=== PATIENT | female | born 1945 | race Caucasian/White ===

== ENCOUNTER 2021-08-30 09:06 | Inpatient (IN) | payer MEDICARE ==
[2021-08-30] MEDS ORDERED: SODIUM CHLORIDE 0.9% 1,000 ML IV STA ×2 (10:35)
--- NOTE | 2021-08-30 10:38 | ED ---
Nausea/Vomiting/Diarrhea HPI - General Chief complaint: Nausea/Vomiting/Diarrhea Stated complaint: C-Diff Time Seen by Provider: 08/30/21 09:39 Source: patient Mode of arrival: wheelchair Limitations: no limitations - History of Present Illness Initial comments: 76-year-old female history of C. diff diagnosed several weeks ago she has been on oral medications since and just finished that who presents with complaints of persistent diarrhea nausea 21 pound weight loss decreased oral intake lightheadedness dizziness generalized weakness some intermittent left abdominal pain. No dysuria no hematuria she just feels dehydrated weak she states no palpitations reported no chest pain MD complaint: nausea, vomiting, diarrhea, abdominal pain - Related Data Home Medications Medication Instructions Recorded Confirmed Apixaban [Eliquis] 5 mg PO BID 08/30/21 08/30/21 Diphenox-Atrop 2.5-0.025 mg 1 tab PO QID 08/30/21 08/30/21 [Lomotil] Furosemide [Lasix] 40 mg PO BID 08/30/21 08/30/21 HYDROcodone/APAP 10-325MG [[place] 1 tab PO Q8H PRN 08/30/21 08/30/21 10-325] Vancomycin 125 mg PO Q8H 08/30/21 08/30/21 allopurinoL [Zyloprim] 100 mg PO DAILY 08/30/21 08/30/21 carvediloL [Coreg] 6.25 mg PO BID 08/30/21 08/30/21 ondansetron HCL [Zofran] 8 mg PO Q8H PRN 08/30/21 08/30/21 Allergies Allergy/AdvReac Type Severity Reaction Status Date / Time clindamycin Allergy Unknown Verified 08/30/21 12:10 latex Allergy Unknown Verified 08/30/21 12:10 Penicillins Allergy Rash/Hives Verified 08/30/21 12:10 bhavya Allergy Unknown Verified 08/30/21 12:10 Sulfa (Sulfonamide Allergy Unknown Verified 08/30/21 12:10 Antibiotics) Review of Systems ROS Statement: Those systems with pertinent positive or pertinent negative responses have been documented in the HPI. ROS Other: All systems not noted in ROS Statement are negative. Past Medical History Past Medical History: Atrial Fibrillation, Hypertension Additional Past Medical History / Comment(s): heart problems (leaking valves), c-diff, gout History of Any Multi-Drug Resistant Organisms: None Reported Past Surgical History: Hysterectomy, Orthopedic Surgery Additional Past Surgical History / Comment(s): right shoulder, BL knee, right ankle, right great toe, bowel surgery, jaw surgery, right ear Past Psychological History: No Psychological Hx Reported Smoking Status: Former smoker Past Alcohol Use History: None Reported Past Drug Use History: None Reported General Exam - General Exam Comments Initial Comments: This is a well-developed well-nourished awake alert oriented 3 female Limitations: no limitations General appearance: alert, in no apparent distress Head exam: Present: atraumatic, normocephalic, normal inspection Eye exam: Present: normal appearance, PERRL, EOMI. Absent: scleral icterus, conjunctival injection, periorbital swelling ENT exam: Present: mucous membranes dry Neck exam: Present: normal inspection, full ROM, other (No stridor JVD or bruits). Absent: tenderness, meningismus, lymphadenopathy Respiratory exam: Present: normal lung sounds bilaterally. Absent: respiratory distress, wheezes, rales, rhonchi, stridor Cardiovascular Exam: Present: normal rhythm, bradycardia, normal heart sounds. Absent: systolic murmur, diastolic murmur, rubs, gallop, clicks GI/Abdominal exam: Present: soft, normal bowel sounds. Absent: distended, tenderness, guarding, rebound, rigid Extremities exam: Present: normal inspection, full ROM, normal capillary refill. Absent: tenderness, pedal edema, joint swelling, calf tenderness Back exam: Present: normal inspection Neurological exam: Present: alert, oriented X3, CN II-XII intact Psychiatric exam: Present: normal affect, normal mood Skin exam: Present: warm, dry, intact, normal color. Absent: rash Course Vital Signs 08/30/21 08/30/21 08/30/21 09:13 12:00 12:40 Temperature 98 F Pulse Rate 54 L 84 74 Respiratory 18 20 15 Rate Blood Pressure 119/71 143/82 143/82 O2 Sat by Pulse 95 Oximetry 08/30/21 08/30/21 08/30/21 12:50 13:00 13:10 Temperature Pulse Rate 71 81 77 Respiratory 10 L 12 10 L Rate Blood Pressure 143/82 143/82 117/58 O2 Sat by Pulse 73 L 83 L 82 L Oximetry 08/30/21 08/30/21 08/30/21 13:20 13:30 13:40 Temperature Pulse Rate 88 Respiratory 14 Rate Blood Pressure 117/58 117/58 117/58 O2 Sat by Pulse 81 L Oximetry 08/30/21 14:00 Temperature Pulse Rate Respiratory Rate Blood Pressure 117/58 O2 Sat by Pulse Oximetry Medical Decision Making - Medical Decision Making I did discuss [employer] the patient family members patient demonstrates evidence of gastroenteritis dehydration and failure to thrive acute on chronic kidney disease. I did discuss the case also with Dr. Montgomery who is agreed to see the patient consult also with Dr. eduardo who is agreed to accept the patient for the medical service. - Lab Data Result diagrams: 08/30/21 10:56 08/30/21 10:56 Lab Results 08/30/21 08/30/21 08/30/21 Range/Units 10:56 10:56 10:56 WBC 9.5 (3.8-10.6) k/uL RBC 4.17 (3.80-5.40) m/uL Hgb 12.0 (11.4-16.0) gm/dL Hct 39.9 (34.0-46.0) % MCV 95.6 (80.0-100.0) fL MCH 28.8 (25.0-35.0) pg MCHC 30.1 L (31.0-37.0) g/dL RDW 15.4 (11.5-15.5) % Plt Count 369 (150-450) k/uL MPV 8.5 Neutrophils % 67 % Lymphocytes % 24 % Monocytes % 5 % Eosinophils % 2 % Basophils % 1 % Neutrophils # 6.4 (1.3-7.7) k/uL Lymphocytes # 2.3 (1.0-4.8) k/uL Monocytes # 0.4 (0-1.0) k/uL Eosinophils # 0.2 (0-0.7) k/uL Basophils # 0.1 (0-0.2) k/uL Hypochromasia Moderate Sodium 137 (137-145) mmol/L Potassium 3.5 (3.5-5.1) mmol/L Chloride 99 (98-107) mmol/L Carbon Dioxide 28 (22-30) mmol/L Anion Gap 10 mmol/L BUN 23 H (7-17) mg/dL Creatinine 2.62 H (0.52-1.04) mg/dL Est GFR (CKD-EPI)AfAm 20 (>60 ml/min/1.73 sqM) Est GFR (CKD-EPI)NonAf 17 (>60 ml/min/1.73 sqM) Glucose 114 H (74-99) mg/dL Plasma Lactic Acid Shahab 1.6 (0.7-2.0) mmol/L Calcium 8.1 L (8.4-10.2) mg/dL Magnesium 1.6 (1.6-2.3) mg/dL Total Bilirubin 0.9 (0.2-1.3) mg/dL AST 32 (14-36) U/L ALT 8 (4-34) U/L Alkaline Phosphatase 120 (38-126) U/L Creatine Kinase 81 (30-135) U/L Troponin I (0.000-0.034) ng/mL Total Protein 6.0 L (6.3-8.2) g/dL Albumin 3.1 L (3.5-5.0) g/dL Lipase 58 (23-300) U/L Urine Color Urine Appearance (Clear) Urine pH (5.0-8.0) Ur Specific [place] (1.001-1.035) Urine Protein (Negative) Urine Glucose (UA) (Negative) Urine Ketones (Negative) Urine Blood (Negative) Urine Nitrite (Negative) Urine Bilirubin (Negative) Urine Urobilinogen (<2.0) mg/dL Ur Leukocyte Esterase (Negative) Urine RBC (0-5) /hpf Urine WBC (0-5) /hpf Ur Squamous Epith Cells (0-4) /hpf Urine Bacteria (None) /hpf Hyaline Casts (0-2) /lpf Urine Mucus (None) /hpf 08/30/21 08/30/21 Range/Units 10:56 13:20 WBC (3.8-10.6) k/uL RBC (3.80-5.40) m/uL Hgb (11.4-16.0) gm/dL Hct (34.0-46.0) % MCV (80.0-100.0) fL MCH (25.0-35.0) pg MCHC (31.0-37.0) g/dL RDW (11.5-15.5) % Plt Count (150-450) k/uL MPV Neutrophils % % Lymphocytes % % Monocytes % % Eosinophils % % Basophils % % Neutrophils # (1.3-7.7) k/uL Lymphocytes # (1.0-4.8) k/uL Monocytes # (0-1.0) k/uL Eosinophils # (0-0.7) k/uL Basophils # (0-0.2) k/uL Hypochromasia Sodium (137-145) mmol/L Potassium (3.5-5.1) mmol/L Chloride (98-107) mmol/L Carbon Dioxide (22-30) mmol/L Anion Gap mmol/L BUN (7-17) mg/dL Creatinine (0.52-1.04) mg/dL Est GFR (CKD-EPI)AfAm (>60 ml/min/1.73 sqM) Est GFR (CKD-EPI)NonAf (>60 ml/min/1.73 sqM) Glucose (74-99) mg/dL Plasma Lactic Acid Shahab (0.7-2.0) mmol/L Calcium (8.4-10.2) mg/dL Magnesium (1.6-2.3) mg/dL Total Bilirubin (0.2-1.3) mg/dL AST (14-36) U/L ALT (4-34) U/L Alkaline Phosphatase (38-126) U/L Creatine Kinase (30-135) U/L Troponin I 0.025 (0.000-0.034) ng/mL Total Protein (6.3-8.2) g/dL Albumin (3.5-5.0) g/dL Lipase (23-300) U/L Urine Color Yellow Urine Appearance Cloudy H (Clear) Urine pH 5.0 (5.0-8.0) Ur Specific [place] 1.008 (1.001-1.035) Urine Protein Negative (Negative) Urine Glucose (UA) Negative (Negative) Urine Ketones Negative (Negative) Urine Blood Negative (Negative) Urine Nitrite Negative (Negative) Urine Bilirubin Negative (Negative) Urine Urobilinogen <2.0 (<2.0) mg/dL Ur Leukocyte Esterase Large H (Negative) Urine RBC 1 (0-5) /hpf Urine WBC 18 H (0-5) /hpf Ur Squamous Epith Cells 6 H (0-4) /hpf Urine Bacteria Occasional H (None) /hpf Hyaline Casts 3 H (0-2) /lpf Urine Mucus Rare H (None) /hpf - EKG Data -: EKG Interpreted by Me EKG Comments: Evidence of A. fib with aberrant conduction rate 78 QRS 108 daily since QTC 422/456 low-voltage nonspecific ST configuration PVCs noted - Radiology Data Radiology results: report reviewed (Imaging review as well as report no acute findings), image reviewed Disposition Clinical Impression: Gastroenteritis, Dehydration, History of Clostridioides difficile colitis, Failure to thrive in adult Disposition: ADMITTED IP TO THIS HOSP Condition: Fair Referrals: Brock Holguin MD [Primary Care Provider] - 1-2 days Decision Date: 08/30/21 Decision Time: 14:00
[2021-08-30 11:26] LABS: Basophils # (A) 0.1 k/uL (0-0.2); Basophils % (A) 1 %; Eosinophils # (A) 0.2 k/uL (0-0.7); Eosinophils % (A) 2 %; HCT 39.9 % (34.0-46.0); Hypochromasia Moderate; Lymphocytes # (A) 2.3 k/uL (1.0-4.8); Lymphocytes % (A) 24 %; MCH 28.8 pg (25.0-35.0); MCHC 30.1 g/dL (31.0-37.0); MCV 95.6 fL (80.0-100.0); Mean Platelet Volume 8.5; Monocytes # (A) 0.4 k/uL (0-1.0); Monocytes % (A) 5 %; Neutrophils # (A) 6.4 k/uL (1.3-7.7); Neutrophils % (A) 67 %; Platelet Count 369 k/uL (150-450); RBC 4.17 m/uL (3.80-5.40); RDW 15.4 % (11.5-15.5); WBC 9.5 k/uL (3.8-10.6)
[2021-08-30 11:37] LABS: Albumin 3.1 g/dL (3.5-5.0); Calcium 8.1 mg/dL (8.4-10.2); Total Bilirubin 0.9 mg/dL (0.2-1.3)
[2021-08-30 11:41] LABS: Magnesium 1.6 mg/dL (1.6-2.3); Potassium 3.5 mmol/L (3.5-5.1)
--- NOTE | 2021-08-30 11:44 | XR ---
EXAMINATION TYPE: XR KUB DATE OF EXAM: 08/30/2021 COMPARISON: None HISTORY: Diarrhea TECHNIQUE: Upright abdomen FINDINGS: No free air is evident. No suspicious air-fluid levels or differential air-fluid levels are present. Psoas margins are normal. Organomegaly is not evident. No mass effect is evident. Degenerat juan josé joint changes are bilateral hips. IMPRESSION: 1. Unremarkable abdomen.
--- NOTE | 2021-08-30 11:45 | XR ---
EXAMINATION TYPE: XR chest 2V DATE OF EXAM: 08/30/2021 COMPARISON: None INDICATION: Diarrhea lightheaded TECHNIQUE: Frontal and lateral views of the chest are obtained. FINDINGS: The heart size is upper limits of normal.. The pulmonary vasculature is normal. Minimal plate atelectasis may be in the left mid and lower lung field lungs otherwise appear clear.. IMPRESSION: 1. Suggestion of minimal plate atelectasis left lung base
[2021-08-30 13:42] LABS: Appearance,Urine Cloudy (Clear); Bacteria,Urine Occasional /hpf; Bilirubin,Urine Negative (Negative); Blood,Urine Negative (Negative); Color,Urine Yellow; Glucose,Urine (UA) Negative (Negative); Hyaline Casts,Urine 3 /lpf (0-2); Ketones,Urine Negative (Negative); Leukocyte Esterase,Urine Large (Negative); Mucus,Urine Rare /hpf; Nitrite,Urine Negative (Negative); Protein,Urine Negative (Negative); RBC,Urine 1 /hpf (0-5); Specific Gravity,Urine 1.008 (1.001-1.035); Squamous Epithelial Cell,Urine 6 /hpf (0-4); Urobilinogen,Urine <2.0 mg/dL (<2.0); WBC,Urine 18 /hpf (0-5)
[2021-08-30] MEDS ORDERED: ACETAMINOPHEN TAB 325 MG TAB PO PRN (14:28)
[2021-08-30] MEDS ORDERED: NALOXONE 0.4 MG/ML 1 ML VIAL IV PRN (14:28)
[2021-08-30] MEDS ORDERED: IOPAMIDOL CONTRAST (ORAL USE) VIAL PO PRN (16:21)
[2021-08-30] MEDS: FUROSEMIDE 40 MG TAB PO SCH (17:15)
[2021-08-30] MEDS: DIPHENOX-ATROP 2.5-0.025 MG 1 EACH TAB PO SCH ×2 (17:15→23:03)
[2021-08-30] MEDS: ONDANSETRON 4 MG/2 ML VIAL IVP PRN (17:46)
[2021-08-30] MEDS ORDERED: IPRATROPIUM-ALBUTEROL 3 ML NEB INHALATION PRN (17:52)
[2021-08-30] MEDS: SODIUM CHLORIDE 0.9% 1,000 ML IV SCH (18:50)
[2021-08-30] MEDS: IPRATROPIUM-ALBUTEROL 3 ML NEB INHALATION SCH (19:42)
[2021-08-30] MEDS: APIXABAN 5 MG TAB PO SCH (20:15)
[2021-08-30] MEDS: carvediloL 6.25 MG TAB PO SCH (20:15)
--- NOTE | 2021-08-30 20:28 | HP ---
HISTORY AND PHYSICAL DATE OF SERVICE: 08/30/2021 CHIEF COMPLAINTS: Nausea, vomiting, diarrhea and failure of outpatient treatment with C difficile colitis. HISTORY OF PRESENT ILLNESS: This 76-year-old woman with a past medical history of multiple medical problems, including atrial fibrillation, hypertension and liver disease, was apparently multiple times during the recent months. The most recent admission was for C difficile colitis. The patient was given apparently a 10-day course of vancomycin. The patient was still having diarrhea and was also vomiting, unable to keep anything down. Patient came to [facility] and was admitted for evaluation and treatment. The creatinine is elevated at 2.62, indicating acute renal failure. Urine is also abnormal. There is no history of any fever, rigor or chills at this time. PAST MEDICAL HISTORY: Past medical history includes atrial fibrillation, hypertension. HOME MEDICATIONS: Reviewed. They include Zofran. Doses and the rest of the medications are noted. ALLERGIES: REVIEWED. THEY INCLUDE CLINDAMYCIN. FAMILY HISTORY: No history of heart disease or strokes in the family. SOCIAL HISTORY: Previous history of smoking. REVIEW OF SYSTEMS: Fourteen-point review of systems negative except as mentioned earlier. PHYSICAL EXAMINATION: Pulse is 88, blood pressure ntd_, respiration 14. Pulse ox 81%. HEENT: Conjunctivae normal. NECK: No jugular venous distention. CARDIOVASCULAR: S1, S2 muffled. RESPIRATION: Breath sounds diminished at the bases. A few scattered rhonchi. ABDOMEN: Soft. Obese. Mild diffuse discomfort. No guarding. No rigidity. No mass palpable. LEGS: No edema. No swelling. NERVOUS SYSTEM: No focal deficit. LABS: Reviewed. Creatinine 2.62. ASSESSMENT: 1. Nausea, vomiting, diarrhea, rule out Clostridium difficile colitis and failure of outpatient treatment. 2. Acute renal failure, prerenal. 3. Hypoxia for evaluation. 4. Rule out acute urinary tract infection. 5. Atrial fibrillation. 6. Multiple medical issues. RECOMMENDATIONS AND DISCUSSION: In this 76-year-old woman who presented with multiple complex medical issues, we will monitor the patient closely. Repeat C difficile. Obtain cultures of urine and blood. Gentle hydration. I would also recommend a D-dimer, and if it is positive V/Q scan. The chest x-ray was reviewed personally by me and showed no acute abnormality. Prognosis is guarded because of multiple complex medical issues. See orders for further details. Will consult Infectious Disease as well. Further recommendations to follow. MMODL / IJN: [id number] / [place]
--- NOTE | 2021-08-30 21:22 | CT ---
EXAMINATION TYPE: CT abdomen pelvis wo con DATE OF EXAM: 08/30/2021 COMPARISON: None INDICATION: abdominal pain DLP: 1132.4 mGycm, Automated exposure control for dose reduction was used. CONTRAST: 0 mL of Isovue 300. Study performed without Oral Contrast TECHNIQUE: Axial images were obtained from above the diaphragm to the pubic rami in the axial plane a t 5 mm thick sections. Reconstructed images are reviewed on the computer in the coronal plane. FINDINGS: Limited CT sections are obtained the lung bases. The lung bases are clear. Coronary artery calcific ation is present. CT ABDOMEN: Liver: There is mild fatty infiltration to the liver. No discrete masses are evident. Spleen: Normal Pancreas: Atrophic Adrenal glands: The adrenal glands are normal. Gallbladder: Not identified. Correlate with surgical history Kidneys: No masses are evident. No hydronephrosis is present. No cysts are present. Kidneys appear atrophic. Aorta: Vascular calcification is within the aorta. Inferior vena cava: Normal. CT PELVIS: Loops of bowel within the abdomen and pelvis are normal. Studies without oral contrast limiting b owel evaluation. Surgical changes within the distal colon. No obvious stenosis is evident. No suspici ous wall thickening or pericolonic inflammatory changes evident to suggest acute colitis. Appendix: Not identified Urinary bladder: Decompressed cannot be evaluated Genitourinary structures: Uterus and ovaries are not identified. No free fluid within the pelvis. Osseous structures: No suspicious lytic or sclerotic lesions. IMPRESSIONS: 1. No suspicious changes without acute colitis. 2. Mild fatty alteration of the liver.
[2021-08-30] MEDS: HYDROcodone/APAP 10-325MG 1 EACH TAB PO PRN (23:34)
[2021-08-31] MEDS: IPRATROPIUM-ALBUTEROL 3 ML NEB INHALATION SCH ×3 (08:06→19:50)
[2021-08-31 09:05] LABS: Basophils # (A) 0.05 X 10*3/uL (0.00-0.10); Basophils % (A) 0.7 %; Eosinophils # (A) 0.22 X 10*3/uL (0.04-0.35); Eosinophils % (A) 3.1 %; HCT 32.5 % (37.2-46.3); HGB 9.7 g/dL (12.0-15.0); Immature Grans, Automated 0.3 %; Lymphocytes # (A) 2.25 X 10*3/uL (0.90-5.00); Lymphocytes % (A) 31.3 %; MCH 27.7 pg (27.0-32.0); MCHC 29.8 g/dL (32.0-37.0); MCV 92.9 fL (80.0-97.0); Mean Platelet Volume 11.6 fL (9.5-12.2); Monocytes # (A) 0.59 X 10*3/uL (0.20-1.00); Monocytes % (A) 8.2 %; NRBC Per 100 WBC 0 /100 WBCS (0.0-0.0); Neutrophils # (A) 4.05 X 10*3/uL (1.80-7.70); Neutrophils % (A) 56.4 %; Platelet Count 288 X 10*3/uL (140-440); RDW 15.9 % (11.5-14.5); WBC 7.18 X 10*3/uL (4.50-10.00)
[2021-08-31 09:13] LABS: Anion Gap 13.9 mmol/L (10.00-18.00); BUN/Creat Ratio 6.73 Ratio (12.00-20.00); Blood Urea Nitrogen 17.5 mg/dL (9.0-27.0); Calcium 7.4 mg/dL (8.7-10.3); Carbon Dioxide 24.1 mmol/L (20.0-27.5); Non-African American GFR(CKD) 17.2 (60.0-200.0); Potassium 2.9 mmol/L (3.5-5.5)
[2021-08-31] MEDS: SODIUM CHLORIDE 0.9% 1,000 ML IV SCH (09:31)
[2021-08-31] MEDS: carvediloL 6.25 MG TAB PO SCH ×2 (09:32→19:30)
[2021-08-31] MEDS: PANTOPRAZOLE 40 MG/10 ML VIAL IV SCH (09:32)
[2021-08-31] MEDS: allopurinoL 100 MG TAB PO SCH (09:32)
[2021-08-31] MEDS: FUROSEMIDE 40 MG TAB PO SCH ×2 (09:32→16:20)
[2021-08-31] MEDS: DIPHENOX-ATROP 2.5-0.025 MG 1 EACH TAB PO SCH ×2 (09:32→13:35)
[2021-08-31] MEDS: APIXABAN 5 MG TAB PO SCH ×2 (09:32→19:30)
[2021-08-31] MEDS: HYDROcodone/APAP 10-325MG 1 EACH TAB PO PRN ×2 (12:03→20:40)
--- NOTE | 2021-08-31 14:20 | P.GSCN ---
History of Present Illness Consult date: 08/31/21 History of present illness: CHIEF COMPLAINT: Nausea and vomiting HISTORY OF PRESENT ILLNESS: This is a 76-year-old female with recent C. diff colitis. She reports having had diarrhea for about 3 weeks. She was found to have evidence of C. diff colitis. She completed one week of treatment for C. diff colitis. She reports that the medication was making her feel nauseated. She also was having vomiting. She reports that her last bowel movement was 2 days ago and it was loose. She denies any abdominal pain. However she does report poor oral intake. She's lost about 10 pounds within the last week. Her CAT scan of the abdomen results without contrast demonstrates no suspicious changes without acute colitis. Mild fatty alteration of the liver. Patient's c urrently lying in bed and tolerating clear liquid diet. No abdominal pain. Currently no nausea. She is on Eliquis for her atrial fibrillation. Past surgical history does include bowel resection about 10 years ago for possible diverticulitis, prior lysis of adhesions for bowel obstruction and a childhood surgical history of bowel resection and hysterectomy. Her last colonoscopy was about 10 years ago. She denies any fever chills or sweats. Patient currently denies any difficulty swallowing. But family member at bedside had reported some differential patient had had some difficulty with solid foods. PAST MEDICAL HISTORY: See list. PAST SURGICAL HISTORY: See list. MEDICATIONS: See list. ALLERGIES: See list. SOCIAL HISTORY: No illicit drug use. REVIEW OF SYSTEMS: CONSTITUTIONAL: Denies fever or chills. HEENT: Denies blurred vision, vision changes, or eye pain. Denies hemoptysis ENDOCRINE: Denies heat or cold intolerance. CARDIOVASCULAR: Denies chest pain or pressure. RESPIRATORY: No shortness of breath. GASTROINTESTINAL: Denies abdominal pain. Denies nausea or vomiting. NEURO: Denies history of seizures. PSYCH: No depression or suicidal ideation HEMATOLOGIC: Denies bleeding disorders. LYMPHATIC: The patient denies any lumps and bumps around the neck. GENITOURINARY: Denies any blood in urine or increased urinary frequency. MUSCULOSKELETAL: Denies myalgias. Denies joint swelling. Denies decreased range of motion beyond patients baseline. SKIN: Denies pruitis. Denies rash. PHYSICAL EXAM: VITAL SIGNS: Reviewed GENERAL: Well-developed in no acute distress. HEENT: No sclera icterus. Extraocular movements grossly intact. Moist buccal mucosa. Head is atraumatic, normocephalic. Hears conversational speech. No nasal drainage. NECK: Supple without lymphadenopathy. CHEST: Non-labored respirations and equal bilateral excursions. CARDIOVASCULAR: Palpable 2+ radial pulses. ABDOMEN: Soft. Nondistended. Nontender MUSCULOSKELETAL: No clubbing or cyanosis. NEUROLOGIC: No focal or lateralizing signs. Cranial nerves II through XII grossly intact. PSYCH: Appropriate affect. Alert and oriented to person, place and time. SKIN: Well perfused. Good skin turgor. LABORATORY DATA: WBC 7.18 Hgb 12 down to 9.7 platelets 288 Sodium 144 potassium 2.9 creatinine 2.6 IMAGING: Computed tomography scan findings as stated above ASSESSMENT: 1. Nausea and vomiting 2. Recent C. diff colitis and did not complete full treatment due to nausea and vomiting 3. Acute renal failure 4. Possible difficulty with swallowing solid food 5. History of atrial fibrillation on Eliquis for anticoagulation PLAN: -Further recommendations forthcoming per surgeon -Repeat stool for C. diff pending -Continue supportive care -Continue clear liquid diet -Continue IV fluids Thank you for this consultation Physician Machine Feed Operator note has been reviewed by physician. Signing provider agrees with the documented findings, assessment, and plan of care. Past Medical History Past Medical History: Atrial Fibrillation, Hypertension Additional Past Medical History / Comment(s): heart problems (leaking valves), c-diff, gout History of Any Multi-Drug Resistant Organisms: None Reported Past Surgical History: Hysterectomy, Orthopedic Surgery Additional Past Surgical History / Comment(s): right shoulder, BL knee, right ankle, right great toe, bowel surgery, jaw surgery, right ear Past Psychological History: No Psychological Hx Reported Smoking Status: Former smoker Past Alcohol Use History: None Reported Past Drug Use History: None Reported Medications and Allergies Home Medications Medication Instructions Recorded Confirmed Type Apixaban [Eliquis] 5 mg PO BID 08/30/21 08/30/21 History Diphenox-Atrop 2.5-0.025 mg 1 tab PO QID 08/30/21 08/30/21 History [Lomotil] Furosemide [Lasix] 40 mg PO BID 08/30/21 08/30/21 History HYDROcodone/APAP 10-325MG [[place] 1 tab PO Q8H PRN 08/30/21 08/30/21 History 10-325] Vancomycin 125 mg PO Q8H 08/30/21 08/30/21 History allopurinoL [Zyloprim] 100 mg PO DAILY 08/30/21 08/30/21 History carvediloL [Coreg] 6.25 mg PO BID 08/30/21 08/30/21 History ondansetron HCL [Zofran] 8 mg PO Q8H PRN 08/30/21 08/30/21 History Allergies Allergy/AdvReac Type Severity Reaction Status Date / Time clindamycin Allergy Unknown Verified 08/30/21 12:10 latex Allergy Unknown Verified 08/30/21 12:10 Penicillins Allergy Rash/Hives Verified 08/30/21 12:10 bhavya Allergy Unknown Verified 08/30/21 12:10 Sulfa (Sulfonamide Allergy Unknown Verified 08/30/21 12:10 Antibiotics) Surgical - Exam Vital Signs Temp Pulse Resp BP Pulse Ox 98 F 54 L 18 119/71 95 08/30/21 09:13 08/30/21 09:13 08/30/21 09:13 08/30/21 09:13 08/30/21 09:13 Results - Labs 08/31/21 06:03 08/31/21 06:03 Abnormal Lab Results - Last 24 Hours (Table) 08/30/21 08/30/21 08/30/21 Range/Units 10:56 10:56 13:20 RBC (4.10-5.20) X 10*6/uL Hgb (12.0-15.0) g/dL Hct (37.2-46.3) % MCHC 30.1 L (31.0-37.0) g/dL RDW (11.5-14.5) % Potassium (3.5-5.5) mmol/L BUN 23 H (7-17) mg/dL Creatinine 2.62 H (0.52-1.04) mg/dL Est GFR (CKD-EPI)AfAm (60.0-200.0) Est GFR (CKD-EPI)NonAf (60.0-200.0) BUN/Creatinine Ratio (12.00-20.00) Ratio Glucose 114 H (74-99) mg/dL Calcium 8.1 L (8.4-10.2) mg/dL Total Protein 6.0 L (6.3-8.2) g/dL Albumin 3.1 L (3.5-5.0) g/dL Urine Appearance Cloudy H (Clear) Ur Leukocyte Esterase Large H (Negative) Urine WBC 18 H (0-5) /hpf Ur Squamous Epith Cells 6 H (0-4) /hpf Urine Bacteria Occasional H (None) /hpf Hyaline Casts 3 H (0-2) /lpf Urine Mucus Rare H (None) /hpf 08/31/21 08/31/21 Range/Units 06:03 06:03 RBC 3.50 L (4.10-5.20) X 10*6/uL Hgb 9.7 L (12.0-15.0) g/dL Hct 32.5 L (37.2-46.3) % MCHC 29.8 L (31.0-37.0) g/dL RDW 15.9 H (11.5-14.5) % Potassium 2.9 L (3.5-5.5) mmol/L BUN (7-17) mg/dL Creatinine 2.6 H (0.52-1.04) mg/dL Est GFR (CKD-EPI)AfAm 20.0 L (60.0-200.0) Est GFR (CKD-EPI)NonAf 17.2 L (60.0-200.0) BUN/Creatinine Ratio 6.73 L (12.00-20.00) Ratio Glucose (74-99) mg/dL Calcium 7.4 L (8.4-10.2) mg/dL Total Protein (6.3-8.2) g/dL Albumin (3.5-5.0) g/dL Urine Appearance (Clear) Ur Leukocyte Esterase (Negative) Urine WBC (0-5) /hpf Ur Squamous Epith Cells (0-4) /hpf Urine Bacteria (None) /hpf Hyaline Casts (0-2) /lpf Urine Mucus (None) /hpf Microbiology - Last 24 Hours (Table) 08/30/21 13:20 Urine Culture - Preliminary Urine,Voided Diabetes panel 08/30/21 08/31/21 Range/Units 10:56 06:03 Sodium 137 144 (137-145) mmol/L Potassium 3.5 2.9 L (3.5-5.1) mmol/L Chloride 99 106 (98-107) mmol/L Carbon Dioxide 28 24.1 (22-30) mmol/L BUN 23 H 17.5 (7-17) mg/dL Creatinine 2.62 H 2.6 H (0.52-1.04) mg/dL Glucose 114 H 74 (74-99) mg/dL Calcium 8.1 L 7.4 L (8.4-10.2) mg/dL AST 32 (14-36) U/L ALT 8 (4-34) U/L Alkaline Phosphatase 120 (38-126) U/L Total Protein 6.0 L (6.3-8.2) g/dL Albumin 3.1 L (3.5-5.0) g/dL Calcium panel 08/30/21 08/31/21 Range/Units 10:56 06:03 Calcium 8.1 L 7.4 L (8.4-10.2) mg/dL Albumin 3.1 L (3.5-5.0) g/dL Pituitary panel 08/30/21 08/31/21 Range/Units 10:56 06:03 Sodium 137 144 (137-145) mmol/L Potassium 3.5 2.9 L (3.5-5.1) mmol/L Chloride 99 106 (98-107) mmol/L Carbon Dioxide 28 24.1 (22-30) mmol/L BUN 23 H 17.5 (7-17) mg/dL Creatinine 2.62 H 2.6 H (0.52-1.04) mg/dL Glucose 114 H 74 (74-99) mg/dL Calcium 8.1 L 7.4 L (8.4-10.2) mg/dL Adrenal panel 08/30/21 08/31/21 Range/Units 10:56 06:03 Sodium 137 144 (137-145) mmol/L Potassium 3.5 2.9 L (3.5-5.1) mmol/L Chloride 99 106 (98-107) mmol/L Carbon Dioxide 28 24.1 (22-30) mmol/L BUN 23 H 17.5 (7-17) mg/dL Creatinine 2.62 H 2.6 H (0.52-1.04) mg/dL Glucose 114 H 74 (74-99) mg/dL Calcium 8.1 L 7.4 L (8.4-10.2) mg/dL Total Bilirubin 0.9 (0.2-1.3) mg/dL AST 32 (14-36) U/L ALT 8 (4-34) U/L Alkaline Phosphatase 120 (38-126) U/L Total Protein 6.0 L (6.3-8.2) g/dL Albumin 3.1 L (3.5-5.0) g/dL
[2021-08-31] MEDS: FIDAXOMICIN 200 MG TABLET PO SCH ×2 (15:39→19:30)
[2021-08-31] MEDS ORDERED: Potassium Replacement Protocol 1 EACH MISC MISCELLANE PRN (17:35)
--- NOTE | 2021-08-31 18:11 | PN ---
PROGRESS NOTE DATE OF SERVICE: 08/30/2021 This 76-year-old woman who was admitted with nausea, vomiting and diarrhea had concerns about recurrent C difficile colitis. Dr. Russell is following the patient closely. CT scan of the abdomen and pelvis showed no suspicious changes. No fever. No cough. PHYSICAL EXAMINATION: Pulse is 71, blood pressure 110/43, respiration 16. CHEST: Clear to auscultation. CARDIOVASCULAR: S1, S2 muffled. ABDOMEN: Soft. Mild diffuse discomfort. LEGS: No edema. No swelling. NERVOUS SYSTEM: No focal deficit. LABS: Reviewed. Hemoglobin 9.7. Other labs are reviewed. ASSESSMENT: 1. Nausea, vomiting, diarrhea. Rule out recurrent C difficile colitis and failure of outpatient treatment. 2. Acute renal failure, prerenal. 3. Hypoxia for evaluation. 4. Rule out acute urinary tract infection. 5. Atrial fibrillation. 6. Multiple medical issues. RECOMMENDATIONS AND DISCUSSION: I recommend to continue current medications, continue with the monitoring, symptomatic treatment. Dr. Russell is following the patient closely. Will continue to monitor. Guarded prognosis. Further recommendations to follow. MMODL / IJN: [id number] /
[2021-08-31] MEDS: POTASSIUM CHLORIDE ER 20 MEQ TAB.ER PO SCH ×3 (18:27→20:40)
--- NOTE | 2021-08-31 23:07 | P.CONS ---
History of Present Illness - Reason for Consult Consult date: 08/31/21 C. diff Requesting physician: Ignacia Rojo - Chief Complaint Intractable diarrhea x days - History of Present Illness Patient is a 76-year-old female with a recent diagnosis of C. difficile colitis that has been treated with oral vancomycin however the patient mention still having significant diarrhea with innumerable amounts of loose stool denies having any blood in mucus in stool patient be complaining of feeling nauseated but no vomiting and has been complaining of some abdominal pain more of a colicky 4-5 out of 10 no radiation patient also complaining of feeling lightheaded dizzy and concern for possible dehydration patient denies having any burning or frequency of urine and denies high-grade fever with the symptoms the patient has been evaluated by the ER physician on arrival to the ER patient was afebrile patient did have a normal white count did have elevated BUN/creatinine liver exams are normal urine was mildly positive stool for C. 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 Review of Systems Positive point has been mentioned in the HPI rest of the systems are negative Past Medical History Past Medical History: Atrial Fibrillation, Hypertension Additional Past Medical History / Comment(s): heart problems (leaking valves), c-diff, gout History of Any Multi-Drug Resistant Organisms: None Reported Past Surgical History: Hysterectomy, Orthopedic Surgery Additional Past Surgical History / Comment(s): right shoulder, BL knee, right ankle, right great toe, bowel surgery, jaw surgery, right ear Past Psychological History: No Psychological Hx Reported Smoking Status: Former smoker Past Alcohol Use History: None Reported Past Drug Use History: None Reported Medications and Allergies Home Medications Medication Instructions Recorded Confirmed Type Apixaban [Eliquis] 5 mg PO BID 08/30/21 08/30/21 History Diphenox-Atrop 2.5-0.025 mg 1 tab PO QID 08/30/21 08/30/21 History [Lomotil] Furosemide [Lasix] 40 mg PO BID 08/30/21 08/30/21 History HYDROcodone/APAP 10-325MG [[place] 1 tab PO Q8H PRN 08/30/21 08/30/21 History 10-325] allopurinoL [Zyloprim] 100 mg PO DAILY 08/30/21 08/30/21 History carvediloL [Coreg] 6.25 mg PO BID 08/30/21 08/30/21 History Acetaminophen Tab [Tylenol] 650 mg PO Q6HR PRN tab 09/02/21 Rx Pantoprazole Sodium [Protonix] 40 mg PO DAILY #30 tab 09/02/21 Rx Potassium Chloride [K-Tab ER] 20 meq PO DAILY 30 Days #30 tab 09/02/21 Rx ondansetron HCL [Zofran] 8 mg PO Q8H PRN #30 tab 09/02/21 Rx Allergies Allergy/AdvReac Type Severity Reaction Status Date / Time clindamycin Allergy Unknown Verified 08/30/21 12:10 latex Allergy Unknown Verified 08/30/21 12:10 Penicillins Allergy Rash/Hives Verified 08/30/21 12:10 bhavya Allergy Unknown Verified 08/30/21 12:10 Sulfa (Sulfonamide Allergy Unknown Verified 08/30/21 12:10 Antibiotics) Physical Exam Vitals: Vital Signs Temp Pulse Pulse Resp BP BP Pulse Ox 08/31/21 07:22 97.9 F 71 16 110/43 99 08/31/21 03:35 98.6 F 78 16 132/77 96 08/30/21 20:00 97.7 F 73 77 16 115/50 117/54 95 08/30/21 14:00 117/58 08/30/21 13:40 117/58 08/30/21 13:30 117/58 08/30/21 13:20 88 14 117/58 81 L 08/30/21 13:10 77 10 L 117/58 82 L 08/30/21 13:00 81 12 143/82 83 L 08/30/21 12:50 71 10 L 143/82 73 L 08/30/21 12:40 74 15 143/82 08/30/21 12:00 84 20 143/82 Intake and Output 08/30/21 08/31/21 08/31/21 22:59 06:59 14:59 Other: # Voids 0 GENERAL DESCRIPTION: Elderly female lying in bed, no distress. No tachypnea or accessory muscle of respiration use. HEENT: Shows Pallor , no scleral icterus. Oral mucous membrane is dry. No pharyngeal erythema or thrush NECK: Trachea central, no thyromegaly. LUNGS: Unlabored breathing. Clear to auscultation anteriorly. No wheeze or crackle. HEART: S1, S2, regular rate and rhythm. No loud murmur ABDOMEN: Soft, no tenderness , guarding or rigidity, no organomegaly EXTREMITIES: No edema of feet. SKIN: No rash, no masses palpable. NEUROLOGICAL: The patient is awake, alert, oriented x3, mood and affect normal. Results CBC & Chem 7: 09/02/21 11:13 09/02/21 11:13 Labs: Abnormal Lab Results - Last 24 Hours (Table) 08/30/21 08/30/21 08/30/21 Range/Units 10:56 10:56 13:20 RBC (4.10-5.20) X 10*6/uL Hgb (12.0-15.0) g/dL Hct (37.2-46.3) % MCHC 30.1 L (31.0-37.0) g/dL RDW (11.5-14.5) % Potassium (3.5-5.5) mmol/L BUN 23 H (7-17) mg/dL Creatinine 2.62 H (0.52-1.04) mg/dL Est GFR (CKD-EPI)AfAm (60.0-200.0) Est GFR (CKD-EPI)NonAf (60.0-200.0) BUN/Creatinine Ratio (12.00-20.00) Ratio Glucose 114 H (74-99) mg/dL Calcium 8.1 L (8.4-10.2) mg/dL Total Protein 6.0 L (6.3-8.2) g/dL Albumin 3.1 L (3.5-5.0) g/dL Urine Appearance Cloudy H (Clear) Ur Leukocyte Esterase Large H (Negative) Urine WBC 18 H (0-5) /hpf Ur Squamous Epith Cells 6 H (0-4) /hpf Urine Bacteria Occasional H (None) /hpf Hyaline Casts 3 H (0-2) /lpf Urine Mucus Rare H (None) /hpf 08/31/21 08/31/21 Range/Units 06:03 06:03 RBC 3.50 L (4.10-5.20) X 10*6/uL Hgb 9.7 L (12.0-15.0) g/dL Hct 32.5 L (37.2-46.3) % MCHC 29.8 L (31.0-37.0) g/dL RDW 15.9 H (11.5-14.5) % Potassium 2.9 L (3.5-5.5) mmol/L BUN (7-17) mg/dL Creatinine 2.6 H (0.52-1.04) mg/dL Est GFR (CKD-EPI)AfAm 20.0 L (60.0-200.0) Est GFR (CKD-EPI)NonAf 17.2 L (60.0-200.0) BUN/Creatinine Ratio 6.73 L (12.00-20.00) Ratio Glucose (74-99) mg/dL Calcium 7.4 L (8.4-10.2) mg/dL Total Protein (6.3-8.2) g/dL Albumin (3.5-5.0) g/dL Urine Appearance (Clear) Ur Leukocyte Esterase (Negative) Urine WBC (0-5) /hpf Ur Squamous Epith Cells (0-4) /hpf Urine Bacteria (None) /hpf Hyaline Casts (0-2) /lpf Urine Mucus (None) /hpf Microbiology - Last 24 Hours (Table) 08/30/21 13:20 Urine Culture - Preliminary Urine,Voided Assessment and Plan (1) Gastroenteritis Status: Acute Code(s): K52.9 - NONINFECTIVE GASTROENTERITIS AND COLITIS, UNSPECIFIED SNOMED Code(s): 00930350 (2) History of Clostridioides difficile colitis Status: Acute Code(s): Z86.19 - PERSONAL HISTORY OF OTHER INFECTIOUS AND PAR ASITIC DISEASES SNOMED Code(s): 136506545 Plan: 1patient presented to hospital with significant diarrhea abdominal pain and nausea dehydration in this patient with recent diagnosis of C. difficile colitis with a question of possible oral vancomycin failure. 2we are waiting for stool for C. difficile to be completed. 3we will empirically add Dificid 200 g p.o. twice a day. 4gentle IV fluid. We will follow on clinical condition and cultures to further adjust medication if needed Thank you for this consultation will follow this patient along with you Time with Patient: Greater than 30
[2021-09-01] MEDS: HYDROcodone/APAP 10-325MG 1 EACH TAB PO PRN ×2 (05:24→21:45)
[2021-09-01] MEDS: SODIUM CHLORIDE 0.9% 1,000 ML IV SCH ×2 (05:26→12:19)
[2021-09-01] MEDS: IPRATROPIUM-ALBUTEROL 3 ML NEB INHALATION SCH ×3 (08:26→19:47)
[2021-09-01] MEDS: APIXABAN 5 MG TAB PO SCH ×2 (09:10→21:43)
[2021-09-01] MEDS: allopurinoL 100 MG TAB PO SCH (09:10)
[2021-09-01] MEDS: FUROSEMIDE 40 MG TAB PO SCH ×2 (09:11→16:18)
[2021-09-01] MEDS: carvediloL 6.25 MG TAB PO SCH ×2 (09:11→21:43)
[2021-09-01] MEDS: CHOLESTYRAMINE (WITH SUGAR) 4 GM PACKET PO SCH ×2 (09:13→17:15)
[2021-09-01] MEDS: PANTOPRAZOLE 40 MG/10 ML VIAL IV SCH (09:31)
[2021-09-01] MEDS: ONDANSETRON 4 MG/2 ML VIAL IVP PRN (09:31)
[2021-09-01 11:39] LABS: Basophils # (A) 0.05 X 10*3/uL (0.00-0.10); Basophils % (A) 0.8 %; Eosinophils # (A) 0.25 X 10*3/uL (0.04-0.35); Eosinophils % (A) 3.9 %; HCT 31.9 % (37.2-46.3); HGB 9.5 g/dL (12.0-15.0); Immature Grans, Automated 0.3 %; Lymphocytes # (A) 2.01 X 10*3/uL (0.90-5.00); MCH 27.9 pg (27.0-32.0); MCHC 29.8 g/dL (32.0-37.0); MCV 93.8 fL (80.0-97.0); Mean Platelet Volume 11.5 fL (9.5-12.2); Monocytes # (A) 0.58 X 10*3/uL (0.20-1.00); NRBC Per 100 WBC 0 /100 WBCS (0.0-0.0); Neutrophils # (A) 3.57 X 10*3/uL (1.80-7.70); Platelet Count 292 X 10*3/uL (140-440); RDW 16.1 % (11.5-14.5); WBC 6.48 X 10*3/uL (4.50-10.00)
--- NOTE | 2021-09-01 12:28 | P.PN ---
Subjective Progress Note Date: 09/01/21 Patient reports feeling clinically well since admission. No bowel movements until earlier today. Per patient, she is still being held in the hospital due to infection. Otherwise, no surgical intervention needed. May discharge from a surgical standpoint when medically stable. Objective - Vital Signs Vital signs: Vital Signs Temp 98.0 F 09/01/21 08:00 Pulse 70 09/01/21 08:00 Resp 16 09/01/21 08:00 BP 121/55 09/01/21 08:00 Pulse Ox 96 09/01/21 08:00 FiO2 Intake & Output 08/31/21 09/01/21 09/01/21 18:59 06:59 18:59 Weight 92.079 kg Other: Voiding Method Toilet Toilet # Voids 1 1 - Labs CBC & Chem 7: 09/01/21 06:54 08/31/21 21:31 Labs: Abnormal Lab Results - Last 24 Hours (Table) 09/01/21 09/01/21 Range/Units 06:54 06:54 RBC 3.40 L (4.10-5.20) X 10*6/uL Hgb 9.5 L (12.0-15.0) g/dL Hct 31.9 L (37.2-46.3) % MCHC 29.8 L (32.0-37.0) g/dL RDW 16.1 H (11.5-14.5) % C-Reactive Protein 5.50 H (0.00-0.80) mg/dL Microbiology - Last 24 Hours (Table) 08/30/21 13:20 Urine Culture - Preliminary Urine,Voided Gram Neg Bacilli 08/30/21 17:57 Blood Culture - Preliminary Blood No Growth after 24 hours
[2021-09-01 15:29] LABS: Anion Gap 12.5 mmol/L (10.00-18.00); BUN/Creat Ratio 6.42 Ratio (12.00-20.00); Blood Urea Nitrogen 15.4 mg/dL (9.0-27.0); Calcium 7.4 mg/dL (8.7-10.3); Carbon Dioxide 22.5 mmol/L (20.0-27.5); Potassium 3.7 mmol/L (3.5-5.5)
--- NOTE | 2021-09-01 19:08 | PN ---
PROGRESS NOTE DATE OF SERVICE: 09/01/2021 This 76-year-old woman who was admitted with nausea, vomiting and diarrhea was suspected to have recurrent C difficile colitis. No chest pain. No palpitations. Abdominal CT scan did not show any acute abnormality. PHYSICAL EXAMINATION: Pulse is 70, blood pressure 120/52, respiration 18. HEENT: Conjunctivae normal. NECK: No jugular venous distention. CARDIOVASCULAR: S1, S2 muffled. RESPIRATION: Breath sounds diminished. ABDOMEN: Soft. Mild tenderness. LABS: WBC 6.8, hemoglobin 9.5. CRP is 5.50. ASSESSMENT: 1. Nausea, vomiting and diarrhea. Rule out recurrent C difficile colitis and failure of outpatient treatment. 2. Acute renal failure, prerenal. 3. Urinary tract infection with Gram-negative bacilli. 4. Hypoxia. 5. Atrial fibrillation. 6. Multiple medical issues. 7. Elevated D-dimer. RECOMMENDATIONS AND DISCUSSION: I recommend to continue current medications, continue with the monitoring, symptomatic treatment. Await the final cultures. The patient had some diarrhea today. Will continue to monitor. Repeat labs. Closely follow with Infectious Disease. Further recommendations to follow. MMODL / IJN: [id number] /
--- NOTE | 2021-09-02 00:54 | P.PN ---
Subjective Progress Note Date: 09/01/21 Principal diagnosis: Diarrhea and positive urine culture Patient is a 76 year old female with recent diagnosis of C. diff colitis treated with oral vancomycin presented to the hospital with significant diarrhea and abdominal pain, patient did have a CT of abdominal pelvis did not show any colitis patient did have positive UA however denies any urinary symptoms. On today's evaluation that is 09/01/2021, the patient denies having any fever or any chills, the patient is breathing comfortably denies any chest pain shortness of breath or cough no abdominal pain patient diarrhea has resolved and did not have any bowel movement, denies any urinary symptoms of burning or frequency Objective - Vital Signs Vital signs: Vital Signs Temp 98.0 F 09/01/21 08:00 Pulse 70 09/01/21 08:00 Resp 16 09/01/21 08:00 BP 121/55 09/01/21 08:00 Pulse Ox 96 09/01/21 08:00 FiO2 Intake & Output 08/31/21 09/01/21 09/01/21 18:59 06:59 18:59 Weight 92.079 kg Other: Voiding Method Toilet Toilet # Voids 1 1 - Exam GENERAL DESCRIPTION: An elderly female lying in bed in no distress RESPIRATORY SYSTEM: Unlabored breathing , decreased breath sounds at bases HEART: S1 S2 regular rate and rhythm , ABDOMEN: Soft , no tenderness EXTREMITIES: No edema feet - Labs CBC & Chem 7: 09/01/21 06:54 09/01/21 06:54 Labs: Abnormal Lab Results - Last 24 Hours (Table) 09/01/21 09/01/21 Range/Units 06:54 06:54 RBC 3.40 L (4.10-5.20) X 10*6/uL Hgb 9.5 L (12.0-15.0) g/dL Hct 31.9 L (37.2-46.3) % MCHC 29.8 L (32.0-37.0) g/dL RDW 16.1 H (11.5-14.5) % C-Reactive Protein 5.50 H (0.00-0.80) mg/dL Microbiology - Last 24 Hours (Table) 08/30/21 13:20 Urine Culture - Preliminary Urine,Voided Gram Neg Bacilli 08/30/21 17:57 Blood Culture - Preliminary Blood No Growth after 24 hours Assessment and Plan (1) Gastroenteritis Current Visit: Yes Status: Acute Code(s): K52.9 - NONINFECTIVE GASTROENTERITIS AND COLITIS, UNSPECIFIED SNOMED Code(s): 96207055 (2) History of Clostridioides difficile colitis Current Visit: Yes Status: Acute Code(s): Z86.19 - PERSONAL HISTORY OF OTHER INFECTIOUS AND PARASITIC DISEASES SNOMED Code(s): 480789559 Plan: 1patient presented to hospital with significant diarrhea abdominal pain and nausea dehydration in this patient with recent diagnosis of C. difficile colitis with a question of possible relapse however the patient diarrhea has resolved CT of abdominal pelvis did not show any colitis white count is normal all these features will go against C. diff colitis, will discontinue deficid may use Questran as needed. 2patient with positive urine culture with 2 different pathogen however the patient did not have any urinary symptoms more likely asymptomatic bacteriuria and the patient recently recovering from C. diff colitis will avoid any further antibiotic therapy at this point Time with Patient: Less than 30
[2021-09-02] MEDS: IPRATROPIUM-ALBUTEROL 3 ML NEB INHALATION SCH ×2 (07:49→11:37)
[2021-09-02 08:47] VITALS: BP 126/72; PULSE 76; TEMP 98.3
[2021-09-02] MEDS: HYDROcodone/APAP 10-325MG 1 EACH TAB PO PRN ×2 (09:11→09:16)
[2021-09-02] MEDS: allopurinoL 100 MG TAB PO SCH (09:15)
[2021-09-02] MEDS: ONDANSETRON 4 MG/2 ML VIAL IVP PRN (09:15)
[2021-09-02] MEDS: carvediloL 6.25 MG TAB PO SCH (09:15)
[2021-09-02] MEDS: FUROSEMIDE 40 MG TAB PO SCH (09:15)
[2021-09-02] MEDS: APIXABAN 5 MG TAB PO SCH (09:35)
[2021-09-02] MEDS: PANTOPRAZOLE 40 MG/10 ML VIAL IV SCH (09:35)
[2021-09-02] MEDS: CHOLESTYRAMINE (WITH SUGAR) 4 GM PACKET PO SCH (10:05)
[2021-09-02 10:28] VITALS: RESP 16
[2021-09-02] MEDS: SODIUM CHLORIDE 0.9% 1,000 ML IV SCH ×2 (10:29)
--- NOTE | 2021-09-02 11:46 | P.PN ---
Progress Note - Text Progress Note Date: 09/02/21 Patient feels better. She has Олег dull pain. On exam vessels are still. Abdomen soft. It. Patient appears stable. She was discharged home per medicine
[2021-09-02 12:08] LABS: Basophils # (A) 0.1 k/uL (0-0.2); Basophils % (A) 2 %; Eosinophils # (A) 0.2 k/uL (0-0.7); Eosinophils % (A) 3 %; HCT 32.5 % (34.0-46.0); HGB 10.1 gm/dL (11.4-16.0); Hypochromasia Marked; Lymphocytes # (A) 1.6 k/uL (1.0-4.8); Lymphocytes % (A) 24 %; MCH 30.2 pg (25.0-35.0); MCHC 31.1 g/dL (31.0-37.0); Mean Platelet Volume 8.7; Monocytes # (A) 0.5 k/uL (0-1.0); Monocytes % (A) 7 %; Neutrophils % (A) 63 %; Platelet Count 283 k/uL (150-450); RBC 3.35 m/uL (3.80-5.40); RDW 15.6 % (11.5-15.5); WBC 6.4 k/uL (3.8-10.6)
[2021-09-02 12:22] LABS: African American GFR (CKD) 28 (>60 ml/min/1.73 sqM); Anion Gap 5 mmol/L; Blood Urea Nitrogen 15 mg/dL (7-17); Calcium 7.2 mg/dL (8.4-10.2); Carbon Dioxide 23 mmol/L (22-30); Chloride 112 mmol/L (98-107); Glucose 80 mg/dL (74-99); Non-African American GFR(CKD) 25 (>60 ml/min/1.73 sqM); Potassium 3.3 mmol/L (3.5-5.1); Sodium 140 mmol/L (137-145)
[2021-09-02] MEDS ORDERED: POTASSIUM CHLORIDE ER 20 MEQ TAB.ER PO STA (13:59)
--- NOTE | 2021-09-06 09:15 | P.DS ---
Providers Date of admission: 08/30/21 14:28 Expected date of discharge: 09/02/21 Attending physician: Cresencio Herring MD Consults: 08/30/21 14:28 Consult Physician Urgent Consulting Provider: Analilia Dee Consult Reason/Comments: Gastroenteritis history of C. diff Do you want consulting provider notified?: Already Contacted 08/30/21 17:51 Consult Physician Routine Consulting Provider: Laya Russell Consult Reason/Comments: c diff Do you want consulting provider notified?: Yes Primary care physician: Brock Holguin Hospital Course: Final diagnosis Nausea, vomiting, and diarrhea. Rule out recurrent C. diff colitis and failure of outpatient treatment Acute renal failure, prerenal Urinary tract infection with gram-negative bacilli, present on admission, possi edgardo asymptomatic bacteriuria hypoxia Atrial fibrillation history Also medical issues elevated d-dimer Discharge disposition Patient is being discharged in a stable condition with guarded prognosis to home. Patient will follow-up with Dr. Holguin in the outpatient setting upon discharge. Patient is to also follow-up with cardiology as scheduled . Patient will continue on Protonix daily for the next 1 month. Total time taken is greater than 35 minutes. Hospital course This is a 76-year-old female who came in with nausea, vomiting, and diarrhea and suspected to have recurrent C. diff colitis. Patient was seen and evaluated by infectious disease and monitored closely off antibiotics. Patient with also possible urinary tract infection, present on admission although patient was asymptomatic and denied any dysuria or burning or frequency and most likely asymptomatic bacteriuria and will not require antibiotics on discharge. Recommend patient to follow-up with infectious disease along with primary care provider outpatient. Patient reports to feeling better and having less episodes of loose stools and would like to go home. Recommend repeat labs of CBC and BMP in the outpatient setting in the next 2-3 days. Currently no reports of chest pain, shortness of breath, or palpitations. Patient is afebrile. No reports of nausea or vomiting and patient is tolerating diet. Patient will be discharged home today. On exam vital signs are stable. Cardio S1, S2 are muffled. Respiratory system shows diminished breath sounds at the bases with no wheezing or rhonchi noted. Abdomen is soft and nontender. Nervous system shows no focal deficit. Please refer to medication reconciliation sheet for a list of medications. The impression and plan of care has been dictated by Vi Umana, Nurse Practitioner as directed. Dr. Darrel MD I have performed a history and examination and MDM of this patient, discussed the same with the dictator, and agree with the dictator's assessment and plan as written ,documented as a scribe. Based on total visit time, I have performed more than 50% of the visit. Patient Condition at Discharge: Fair Plan - Discharge Summary Discharge Rx Participant: No New Discharge Prescriptions: New Pantoprazole Sodium [Protonix] 40 mg PO DAILY #30 tab Acetaminophen Tab [Tylenol] 650 mg PO Q6HR PRN tab PRN Reason: Mild Pain Or Fever > 100.5 Potassium Chloride [K-Tab ER] 20 meq PO DAILY 30 Days #30 tab Continue allopurinoL [Zyloprim] 100 mg PO DAILY Diphenox-Atrop 2.5-0.025 mg [Lomotil] 1 tab PO QID HYDROcodone/APAP 10-325MG [[place] 10-325] 1 tab PO Q8H PRN PRN Reason: Pain carvediloL [Coreg] 6.25 mg PO BID Furosemide [Lasix] 40 mg PO BID Apixaban [Eliquis] 5 mg PO BID ondansetron HCL [Zofran] 8 mg PO Q8H PRN #30 tab PRN Reason: Nausea Discontinued Vancomycin 125 mg PO Q8H Discharge Medication List Apixaban [Eliquis] 5 mg PO BID 08/30/21 [History] Diphenox-Atrop 2.5-0.025 mg [Lomotil] 1 tab PO QID 08/30/21 [History] Furosemide [Lasix] 40 mg PO BID 08/30/21 [History] HYDROcodone/APAP 10-325MG [[place] 10-325] 1 tab PO Q8H PRN 08/30/21 [History] allopurinoL [Zyloprim] 100 mg PO DAILY 08/30/21 [History] carvediloL [Coreg] 6.25 mg PO BID 08/30/21 [History] Acetaminophen Tab [Tylenol] 650 mg PO Q6HR PRN tab 09/02/21 [Rx] Pantoprazole Sodium [Protonix] 40 mg PO DAILY #30 tab 09/02/21 [Rx] Potassium Chloride [K-Tab ER] 20 meq PO DAILY 30 Days #30 tab 09/02/21 [Rx] ondansetron HCL [Zofran] 8 mg PO Q8H PRN #30 tab 09/02/21 [Rx] Follow up Appointment(s)/Referral(s): Brock Holguin MD [Primary Care Provider] - 1-2 days Ambulatory/Diagnostic Orders: Complete Blood Count w/diff [LAB.AMB] Time Frame: 3 Days, Location: None Selected Patient Instructions/Handouts: Gastroenteritis (DC) Activity/Diet/Wound Care/Special Instructions: Activity Limited until follow-up Follow-up with primary care provider on discharge Continue taking medications as prescribed Recommend close monitoring of labs and repeat labs of CBC and BMP in 2-3 days Continue with potassium rich food Discharge Disposition: HOME SELF-CARE
--- NOTE | 2021-09-07 21:06 | CDI ---
Documentation Clarification Form Date: 09/07/2021 09:02:35 PM From: Orlando Sue Phone: Admit Date: 08/30/2021 02:28:00 PM Patient Name: Danii Yao Visit Number: [id number] Discharge Date: 09/02/2021 03:48:00 PM ATTENTION: The Clinical Documentation Specialists (CDI) and [facility] Coding Staff appreciate your assistance in clarifying documentation. Please respond to the clarification below the line at the bottom and electronically sign. The CDI & [facility] Coding staff will review the response and follow-up if needed. Please note: Queries are made part of the Legal Health Record. If you have any questions, please contact the author of this message via ITS. Dr. Cresencio Herring C Diff (Clostridium Difficile) is documented through out the record which may lack sufficient clinical evidence/support in the medical record. Additional clarification is requested. History/Risk Factors: Patient presented to hospital with significant diarrhea, abdominal pain, dehydration and nausea. Recent diagnosis of C diff and treatment has not been completed Clinical Indicators: Recent diagnosis C Diff treatment not completed. Diarrhea abdominal pain ,dehydration, and nausea Treatment: Dificid 200g p.o twice a day Please clarify if C Diff is a valid diagnosis? [ ] Yes, C Diff is present as evidence by (additional clinical support): [ ] No, C Diff is ruled out [ ] Other (please specify diagnosis) [ ] Unable to determine not my pt MTDD
--- NOTE | 2021-09-08 08:20 | P.PN ---
Subjective Progress Note Date: 09/02/21 Principal diagnosis: Diarrhea and positive urine culture Patient is a 76 year old female with recent diagnosis of C. diff colitis treated with oral vancomycin presented to the hospital with significant diarrhea and abdominal pain, patient did have a CT of abdominal pelvis did not show any colitis patient did have positive UA however denies any urinary symptoms. On today's evaluation that is 09/02/2021, the patient remains to be afebrile, the patient is breathing comfortably, the patient denies any chest pain shortness of breath or cough no abdominal pain patient diarrhea has resolved and did not have any bowel movement, the patient denies any urinary symptoms of burning or frequency Objective - Vital Signs Vital signs: Vital Signs Temp 98.3 F 09/02/21 08:00 Pulse 76 09/02/21 08:00 Resp 16 09/02/21 08:30 BP 126/72 09/02/21 08:00 Pulse Ox 95 09/02/21 08:00 FiO2 Intake & Output 09/01/21 09/02/21 09/02/21 18:59 06:59 18:59 Other: Voiding Method Toilet Toilet Toilet - Exam GENERAL DESCRIPTION: An elderly female lying in bed in no distress RESPIRATORY SYSTEM: Unlabored breathing , decreased breath sounds at bases HEART: S1 S2 regular rate and rhythm , ABDOMEN: Soft , no tenderness EXTREMITIES: No edema feet - Labs CBC & Chem 7: 09/02/21 11:13 09/02/21 11:13 Labs: Abnormal Lab Results - Last 24 Hours (Table) 09/01/21 09/02/21 09/02/21 Range/Units 06:54 11:13 11:13 RBC 3.35 L (3.80-5.40) m/uL Hgb 10.1 L (11.4-16.0) gm/dL Hct 32.5 L (34.0-46.0) % RDW 15.6 H (11.5-15.5) % Sodium 146 H (135-145) mmol/L Potassium 3.3 L (3.5-5.1) mmol/L Chloride 111 H 112 H (96-109) mmol/L Creatinine 2.4 H 1.94 H (0.6-1.5) mg/dL Est GFR (CKD-EPI)AfAm 22.0 L (60.0-200.0) Est GFR (CKD-EPI)NonAf 19.0 L (60.0-200.0) BUN/Creatinine Ratio 6.42 L (12.00-20.00) Ratio Calcium 7.4 L 7.2 L (8.7-10.3) mg/dL Microbiology - Last 24 Hours (Table) 08/30/21 13:20 Urine Culture - Final Urine,Voided Proteus mirabilis Escherichia coli 08/30/21 17:57 Blood Culture - Preliminary Blood No Growth after 48 hours Assessment and Plan (1) Gastroenteritis Status: Acute Code(s): K52.9 - NONINFECTIVE GASTROENTERITIS AND COLITIS, UNSPECIFIED SNOMED Code(s): 58201307 (2) History of Clostridioides difficile colitis Status: Acute Code(s): Z86.19 - PERSONAL HISTORY OF OTHER INFECTIOUS AND PARASITIC DISEASES SNOMED Code(s): 186689165 Plan: 1patient presented to hospital with significant diarrhea abdominal pain and nausea dehydration in this patient with recent diagnosis of C. difficile colitis with a question of possible relapse however the patient diarrhea has resolved CT of abdominal pelvis did not show any colitis white count is normal all these features will go against C. diff colitis, patient may use Questran as needed no need for vancomycin or deficid on discharged. 2patient with positive urine culture with 2 different pathogen however the patient did not have any urinary symptoms more likely asymptomatic bacteriuria and the patient recently recovering from C. diff colitis , recommending no antibiotic on discharge Time with Patient: Less than 30
--- NOTE | 2021-09-18 19:25 | CDI ---
Documentation Clarification Form Date: 09/18/21 From: Orlando Sue Admit Date: 08/30/2021 02:28:00 PM Patient Name: Danii Yao Visit Number: [id number] Discharge Date: 09/02/2021 03:48:00 PM ATTENTION: The Clinical Documentation Specialists (CDI) and [facility] Coding Staff appreciate your assistance in clarifying documentation. Please respond to the clarification below the line at the bottom and electronically sign. The CDI & [facility] Coding staff will review the response and follow-up if needed. Please note: Queries are made part of the Legal Health Record. If you have any questions, please contact the author of this message via ITS. Dr. Ignacia Rojo C Diff (Clostridum Difficle) is documented throughout the record which may lack sufficient clinical evidence/support in the medical record. Additional clarification is requested. History/Risk Factors: Recently diagnosed with D Ciff and question vancomycin failure Clinical Indicators: diarrhea, abdominal pain, dehydration, and nausea/vomiting Treatment: Dificid 200g p.o twice a day Please clarify if C Diff is a valid diagnosis? [ ] Yes, C DIff is present as evidence by (additional clinical support): [ ] No, C Diff is ruled out [ ] Other (please specify diagnosis) [ ] Unable to determine [ ] No, C Diff is ruled out MTDD
== END 2021-09-02 15:48 | disposition home or self-care (01) | DRG 392 ==
LOC: EC 09:06 → 4SSUR 14:28
PROVIDERS: ADMIT Internal Medicine; ATTEND Internal Medicine
DX: R19.7 Diarrhea, unspecified (principal); N17.9 Acute kidney failure, unspecified; N39.0 Urinary tract infection, site not specified; R62.7 Adult failure to thrive; I12.9 Hypertensive chronic kidney disease with stage 1 through stage 4 chronic kidney disease, or unspecified chronic kidney disease; E86.0 Dehydration; N18.9 Chronic kidney disease, unspecified; B96.89 Other specified bacterial agents as the cause of diseases classified elsewhere; I48.91 Unspecified atrial fibrillation; R09.02 Hypoxemia; Z79.01 Long term (current) use of anticoagulants; Z79.899 Other long term (current) drug therapy; Z87.891 Personal history of nicotine dependence; Z90.49 Acquired absence of other specified parts of digestive tract; Z90.710 Acquired absence of both cervix and uterus; Z88.1 Allergy status to other antibiotic agents; Z88.0 Allergy status to penicillin; Z91.040 Latex allergy status; Z88.2 Allergy status to sulfonamides; Z91.048 Other nonmedicinal substance allergy status; Z87.19 Personal history of other diseases of the digestive system
CPT/HCPCS: 36415; 71046; 74018; 74176; 80048; 80053; 81001; 82550; 83605; 83690; 83735; 84132; 84484; 85025; 85379; 86140; 87040; 87077; 87086; 87186; 93005; 96361; 96374; 96375; 99285

== ENCOUNTER 2021-09-17 14:40 | Inpatient (IN) | payer MEDICARE ==
[2021-09-17] MEDS ORDERED: ONDANSETRON 4 MG/2 ML VIAL IVP STA (14:53)
[2021-09-17] MEDS ORDERED: SODIUM CHLORIDE 0.9% 2,000 ML IV STA (14:53)
[2021-09-17 15:16] LABS: Anisocytosis Slight; Basophils % (A) 0 %; Eosinophils # (A) 0.1 k/uL (0-0.7); Eosinophils % (A) 1 %; HCT 37.4 % (34.0-46.0); HGB 11.8 gm/dL (11.4-16.0); Hypochromasia Moderate; Lymphocytes # (A) 2.2 k/uL (1.0-4.8); Lymphocytes % (A) 30 %; MCH 29.8 pg (25.0-35.0); MCHC 31.6 g/dL (31.0-37.0); MCV 94.2 fL (80.0-100.0); Mean Platelet Volume 8.4; Monocytes # (A) 0.5 k/uL (0-1.0); Monocytes % (A) 6 %; Neutrophils # (A) 4.6 k/uL (1.3-7.7); Neutrophils % (A) 61 %; Platelet Count 352 k/uL (150-450); RBC 3.97 m/uL (3.80-5.40); RDW 16.2 % (11.5-15.5); WBC 7.6 k/uL (3.8-10.6)
[2021-09-17 15:33] LABS: Albumin 2.5 g/dL (3.5-5.0); Calcium 7.6 mg/dL (8.4-10.2); Magnesium 1.2 mg/dL (1.6-2.3); Potassium 2.9 mmol/L (3.5-5.1); Total Bilirubin 0.7 mg/dL (0.2-1.3)
[2021-09-17] MEDS ORDERED: MAGNESIUM SULFATE-D5W PMX 1 GM in DEXTROSE/WATER 1 100ML.BAG IVPB ONE (15:47)
[2021-09-17] MEDS ORDERED: CALCIUM GLUCONATE IN NACL 1 GM in SALINE 1 100ML.BAG IVPB ONE (15:52)
[2021-09-17] MEDS ORDERED: POTASSIUM CHLORIDE ER 20 MEQ TAB.ER PO STA (15:53)
--- NOTE | 2021-09-17 15:58 | ED ---
Nausea/Vomiting/Diarrhea HPI - General Chief complaint: Nausea/Vomiting/Diarrhea Stated complaint: Nausea and vomiting Time Seen by Provider: 09/17/21 14:43 Source: patient, EMS Mode of arrival: EMS Limitations: no limitations - History of Present Illness Initial comments: Patient is a 76-year-old female with a past medical history significant for hypertension, atrial fibrillation on Eliquis, and recent C. diff colitis who presents to the emergency department with a chief complaint of nausea, vomiting, and diarrhea. Patient's most recent admission was for C. diff colitis. At this time she has had failed outpatient antibiotic treatment. She was admitted from 08/30-09/02. She had a normal white blood cell count and her abdominal CT was negative for colitis. She was evaluated by infectious disease and treated with antibiotics. Patient states after discharge her diarrhea initially improved when she was home however soon became consistent again. Denies any further antibiotic use. She denies blood in the stool. Patient and her family state that she has been continuously vomiting, unable to tolerate any oral intake. She reports some mild abdominal cramping earlier which has since resolved. She denies fever, chills, upper respiratory symptoms, shortness of breath, chest pain, burning with urination. Does admit to increased urinary frequency/urgency. - Related Data Home Medications Medication Instructions Recorded Confirmed Apixaban [Eliquis] 5 mg PO BID 08/30/21 08/30/21 Diphenox-Atrop 2.5-0.025 mg 1 tab PO QID 08/30/21 08/30/21 [Lomotil] Furosemide [Lasix] 40 mg PO BID 08/30/21 08/30/21 HYDROcodone/APAP 10-325MG [[place] 1 tab PO Q8H PRN 08/30/21 08/30/21 10-325] allopurinoL [Zyloprim] 100 mg PO DAILY 08/30/21 08/30/21 carvediloL [Coreg] 6.25 mg PO BID 08/30/21 08/30/21 Previous Rx's Medication Instructions Recorded Acetaminophen Tab [Tylenol] 650 mg PO Q6HR PRN tab 09/02/21 Pantoprazole Sodium [Protonix] 40 mg PO DAILY #30 tab 09/02/21 Potassium Chloride [K-Tab ER] 20 meq PO DAILY 30 Days #30 tab 09/02/21 ondansetron HCL [Zofran] 8 mg PO Q8H PRN #30 tab 09/02/21 Allergies Allergy/AdvReac Type Severity Reaction Status Date / Time clindamycin Allergy Unknown Verified 09/17/21 14:47 latex Allergy Unknown Verified 09/17/21 14:47 Penicillins Allergy Rash/Hives Verified 09/17/21 14:47 bhavya Allergy Unknown Verified 09/17/21 14:47 Sulfa (Sulfonamide Allergy Unknown Verified 09/17/21 14:47 Antibiotics) Review of Systems ROS Statement: Those systems with pertinent positive or pertinent negative responses have been documented in the HPI. ROS Other: All systems not noted in ROS Statement are negative. Past Medical History Past Medical History: Atrial Fibrillation, Hypertension Additional Past Medical History / Comment(s): heart problems (leaking valves), c-diff, gout History of Any Multi-Drug Resistant Organisms: C-DIFF Date of last positivie culture/infection: july 2021 Past Surgical History: Hysterectomy, Orthopedic Surgery Additional Past Surgical History / Comment(s): right shoulder, BL knee, right ankle, right great toe, bowel surgery, jaw surgery, right ear Past Psychological History: No Psychological Hx Reported Smoking Status: Former smoker Past Alcohol Use History: None Reported Past Drug Use History: None Reported General Exam Limitations: no limitations General appearance: alert, in no apparent distress Head exam: Present: atraumatic, normocephalic, normal inspection Eye exam: Present: normal appearance, PERRL, EOMI. Absent: scleral icterus, conjunctival injection, periorbital swelling ENT exam: Present: mucous membranes dry Respiratory exam: Present: normal lung sounds bilaterally. Absent: respiratory distress, wheezes, rales, rhonchi, stridor Cardiovascular Exam: Present: regular rate, irregular rhythm, normal heart sounds. Absent: normal rhythm (patient has known a fib ), systolic murmur, diastolic murmur, rubs, gallop, clicks GI/Abdominal exam: Present: soft, normal bowel sounds. Absent: distended, tenderness, guarding, rebound, rigid Neurological exam: Present: alert, oriented X3, CN II-XII intact Psychiatric exam: Present: normal affect, normal mood Skin exam: Present: warm, dry, intact, normal color. Absent: rash Course Vital Signs 09/17/21 14:43 Temperature 97.4 F L Pulse Rate 74 Respiratory 16 Rate Blood Pressure 121/78 O2 Sat by Pulse 97 Oximetry Medical Decision Making - Medical Decision Making This is a 76-year-old female with recent C. diff colitis presenting with int ractable nausea, vomiting, and diarrhea. Thorough history and examination were performed. Patient is hemodynamically stable. She is afebrile. Her weight is consistent with previous admission. Mucous membranes are dry. The abdomen is soft and nontender. With recent C. diff colitis diagnosis and ongoing symptoms I will obtain laboratory studies and CT of the abdomen and pelvis. Laboratory studies significant for low potassium at 2.9, low calcium at 7.6, and low magnesium at 1.2. Patient has elevated creatinine at 2.44, baseline unknown, possible pre renal MANDEEP. White blood cell count is normal at 7.6. Patient given large fluid bolus and zofran. Potassium, calcium, magnesium replenished. Vancomycin initiated. Ionized calcium is low at 4.2. Phosphorus is normal at 2.8. Urinalysis is contaminated by 31 squamous cells however shows increased white blood cells, red blood cells, and bacteria when compared to previous urinalysis. Urine culture reviewed. Levofloxacin initiated. CT of the abdomen and pelvis is negative for acute process including colitis. Patient did PO challenge in the emergency department and immediately vomited. Unable to have bowel movement for c. diff testing. Results discussed with patient. Patient agreeable to admission. Case discussed with Dr. Eric who accepts admission for intractable nausea/vomiting/diarrhea and urinary tract infection. Dr. Snyder is my attending. - Lab Data Result diagrams: 09/17/21 15:07 09/17/21 15:07 Lab Results 09/17/21 09/17/21 09/17/21 Range/Units 15:07 15:07 15:36 WBC 7.6 (3.8-10.6) k/uL RBC 3.97 (3.80-5.40) m/uL Hgb 11.8 (11.4-16.0) gm/dL Hct 37.4 (34.0-46.0) % MCV 94.2 (80.0-100.0) fL MCH 29.8 (25.0-35.0) pg MCHC 31.6 (31.0-37.0) g/dL RDW 16.2 H (11.5-15.5) % Plt Count 352 (150-450) k/uL MPV 8.4 Neutrophils % 61 % Lymphocytes % 30 % Monocytes % 6 % Eosinophils % 1 % Basophils % 0 % Neutrophils # 4.6 (1.3-7.7) k/uL Lymphocytes # 2.2 (1.0-4.8) k/uL Monocytes # 0.5 (0-1.0) k/uL Eosinophils # 0.1 (0-0.7) k/uL Basophils # 0.0 (0-0.2) k/uL Hypochromasia Moderate Anisocytosis Slight Sodium 138 (137-145) mmol/L Potassium 2.9 L (3.5-5.1) mmol/L Chloride 101 (98-107) mmol/L Carbon Dioxide 31 H (22-30) mmol/L Anion Gap 6 mmol/L BUN 19 H (7-17) mg/dL Creatinine 2.44 H (0.52-1.04) mg/dL Est GFR (CKD-EPI)AfAm 22 (>60 ml/min/1.73 sqM) Est GFR (CKD-EPI)NonAf 19 (>60 ml/min/1.73 sqM) Glucose 92 (74-99) mg/dL Calcium 7.6 L (8.4-10.2) mg/dL Ionized Calcium Ivonne (4.5-5.3) mg/dL Phosphorus (2.5-4.5) mg/dL Magnesium 1.2 L (1.6-2.3) mg/dL Total Bilirubin 0.7 (0.2-1.3) mg/dL AST 28 (14-36) U/L ALT 9 (4-34) U/L Alkaline Phosphatase 94 (38-126) U/L Total Protein 5.0 L (6.3-8.2) g/dL Albumin 2.5 L (3.5-5.0) g/dL Lipase 90 (23-300) U/L Urine Color Yellow Urine Appearance Turbid H (Clear) Urine pH 5.5 (5.0-8.0) Ur Specific [place] 1.017 (1.001-1.035) Urine Protein 1+ H (Negative) Urine Glucose (UA) Negative (Negative) Urine Ketones Negative (Negative) Urine Blood Small H (Negative) Urine Nitrite Negative (Negative) Urine Bilirubin Negative (Negative) Urine Urobilinogen <2.0 (<2.0) mg/dL Ur Leukocyte Esterase Large H (Negative) Urine RBC 60 H (0-5) /hpf Urine WBC >182 H (0-5) /hpf Urine WBC Clumps Many H (None) /hpf Ur Squamous Epith Cells 31 H (0-4) /hpf Urine Bacteria Moderate H (None) /hpf Hyaline Casts 52 H (0-2) /lpf Urine Mucus Occasional H (None) /hpf Urine Yeast (Budding) Few H (None) /hpf 09/17/ Range/Units 16:11 WBC (3.8-10.6) k/uL RBC (3.80-5.40) m/uL Hgb (11.4-16.0) gm/dL Hct (34.0-46.0) % MCV (80.0-100.0) fL MCH (25.0-35.0) pg MCHC (31.0-37.0) g/dL RDW (11.5-15.5) % Plt Count (150-450) k/uL MPV Neutrophils % % Lymphocytes % % Monocytes % % Eosinophils % % Basophils % % Neutrophils # (1.3-7.7) k/uL Lymphocytes # (1.0-4.8) k/uL Monocytes # (0-1.0) k/uL Eosinophils # (0-0.7) k/uL Basophils # (0-0.2) k/uL Hypochromasia Anisocytosis Sodium (137-145) mmol/L Potassium (3.5-5.1) mmol/L Chloride (98-107) mmol/L Carbon Dioxide (22-30) mmol/L Anion Gap mmol/L BUN (7-17) mg/dL Creatinine (0.52-1.04) mg/dL Est GFR (CKD-EPI)AfAm (>60 ml/min/1.73 sqM) Est GFR (CKD-EPI)NonAf (>60 ml/min/1.73 sqM) Glucose (74-99) mg/dL Calcium (8.4-10.2) mg/dL Ionized Calcium Ivonne 4.2 L (4.5-5.3) mg/dL Phosphorus 2.8 (2.5-4.5) mg/dL Magnesium (1.6-2.3) mg/dL Total Bilirubin (0.2-1.3) mg/dL AST (14-36) U/L ALT (4-34) U/L Alkaline Phosphatase (38-126) U/L Total Protein (6.3-8.2) g/dL Albumin (3.5-5.0) g/dL Lipase (23-300) U/L Urine Color Urine Appearance (Clear) Urine pH (5.0-8.0) Ur Specific [place] (1.001-1.035) Urine Protein (Negative) Urine Glucose (UA) (Negative) Urine Ketones (Negative) Urine Blood (Negative) Urine Nitrite (Negative) Urine Bilirubin (Negative) Urine Urobilinogen (<2.0) mg/dL Ur Leukocyte Esterase (Negative) Urine RBC (0-5) /hpf Urine WBC (0-5) /hpf Urine WBC Clumps (None) /hpf Ur Squamous Epith Cells (0-4) /hpf Urine Bacteria (None) /hpf Hyaline Casts (0-2) /lpf Urine Mucus (None) /hpf Urine Yeast (Budding) (None) /hpf Disposition Clinical Impression: Diarrhea, Intractable nausea and vomiting, Elevated serum creatinine, Hypokalemia, Hypocalcemia, Hypomagnesemia, Urinary tract infection Disposition: ADMITTED IP TO THIS HOSP Condition: Fair Referrals: Brock Holguin MD [Primary Care Provider] - 1-2 days Decision Time: 18:01
[2021-09-17 16:01] LABS: Appearance,Urine Turbid (Clear); Bacteria,Urine Moderate /hpf; Bilirubin,Urine Negative (Negative); Blood,Urine Small (Negative); Budding Yeast,Urine Few /hpf; Color,Urine Yellow; Glucose,Urine (UA) Negative (Negative); Hyaline Casts,Urine 52 /lpf (0-2); Ketones,Urine Negative (Negative); Leukocyte Esterase,Urine Large (Negative); Mucus,Urine Occasional /hpf; Nitrite,Urine Negative (Negative); PH, Urine 5.5 (5.0-8.0); Protein,Urine 1+ (Negative); RBC,Urine 60 /hpf (0-5); Specific Gravity,Urine 1.017 (1.001-1.035); Squamous Epithelial Cell,Urine 31 /hpf (0-4); Urobilinogen,Urine <2.0 mg/dL (<2.0); WBC,Urine >182 /hpf (0-5)
[2021-09-17] MEDS ORDERED: VANCOMYCIN 1,000 MG in SODIUM CHLORIDE 0.9% 250 ML IVPB STA (16:18)
[2021-09-17] MEDS ORDERED: VANCOMYCIN 125 MG CAPSULE PO STA (16:23)
[2021-09-17 16:38] LABS: Ionized Calcium 4.2 mg/dL (4.5-5.3)
--- NOTE | 2021-09-17 16:43 | CT ---
EXAMINATION TYPE: CT abdomen pelvis wo con DATE OF EXAM: 09/17/2021 COMPARISON: 08/30/2021 HISTORY: Abdominal cramping, N/V/D w/ hx C-diff CT DLP: 1100.4 mGycm Automated exposure control for dose reduction was used. Images obtained from the diaphragm to the floor of the pelvis with no contrast. Lung bases are clear of consolidation. No pleural effusion. There is fatty infiltration of the liver. Spleen is intact. No pancreatic mass. The stomach is intact. Gallbladder appears absent. There is no adrenal mass. Kidneys have normal size. No hydronephrosis. Ureters are not dilated. No re troperitoneal adenopathy. Urinary bladder almost empty. There is no inguinal hernia. No free fluid in the pelvis. No pelvic mass. There is no mesenteric edema. No ascites or free air. No sign of a bowel obstruction. There is previo us surgery at the rectosigmoid junction. The lumbar vertebra show normal alignment. No compression fracture. There is vacuum disc at L5-S1. Th e acetabula appear intact. Pelvic ring is intact. Sacroiliac joints appear normal. Appendix not seen. No sign of thickened appendix. IMPRESSION: No acute abnormality of the abdomen and pelvis. Previous surgery. No adverse change compared to recen t exam.
[2021-09-17 16:46] LABS: Phosphorus 2.8 mg/dL (2.5-4.5)
[2021-09-17] MEDS ORDERED: POTASSIUM CHLORIDE 10 MEQ in WATER FOR INJECTION 1 100ML.BAG IVPB STA (16:58)
[2021-09-17] MEDS ORDERED: LEVOFLOXACIN 500MG-D5W PMX 500 MG in DEXTROSE/WATER 1 100ML.BAG IVPB STA (17:02)
[2021-09-17] MEDS ORDERED: PROCHLORPERAZINE INJ 10 MG/2 ML VIAL IVP STA (17:11)
[2021-09-17] MEDS ORDERED: NALOXONE 0.4 MG/ML 1 ML VIAL IV PRN (18:02)
[2021-09-17] MEDS ORDERED: ONDANSETRON 4 MG/2 ML VIAL IVP PRN (18:06)
[2021-09-17] MEDS ORDERED: PROCHLORPERAZINE 5 MG TAB PO PRN (18:06)
[2021-09-17] MEDS: SODIUM CHLORIDE 0.9% 1,000 ML IV SCH (19:00)
[2021-09-17] MEDS: allopurinoL 100 MG TAB PO SCH (20:09)
[2021-09-17] MEDS: PANTOPRAZOLE 40 MG TABLET PO SCH (20:09)
[2021-09-17] MEDS: carvediloL 6.25 MG TAB PO SCH (20:13)
[2021-09-17] MEDS: APIXABAN 5 MG TAB PO SCH (20:13)
[2021-09-17] MEDS: HYDROcodone/APAP 10-325MG 1 EACH TAB PO PRN (20:13)
[2021-09-17] MEDS: VANCOMYCIN 125 MG CAPSULE PO SCH (23:00)
[2021-09-17] MEDS: FUROSEMIDE 40 MG TAB PO SCH (23:10)
[2021-09-18] MEDS: SODIUM CHLORIDE 0.9% 1,000 ML IV SCH ×2 (02:19→08:17)
[2021-09-18] MEDS: ACETAMINOPHEN TAB 325 MG TAB PO PRN ×2 (02:19→20:05)
[2021-09-18] MEDS: FUROSEMIDE 40 MG TAB PO SCH (08:18)
[2021-09-18] MEDS: VANCOMYCIN 125 MG CAPSULE PO SCH ×4 (08:18→23:02)
[2021-09-18] MEDS: carvediloL 6.25 MG TAB PO SCH ×2 (08:18→17:25)
[2021-09-18] MEDS: POTASSIUM CHLORIDE ER 20 MEQ TAB.ER PO SCH (08:18)
[2021-09-18] MEDS: APIXABAN 5 MG TAB PO SCH (08:18)
[2021-09-18] MEDS: PANTOPRAZOLE 40 MG TABLET PO SCH (08:18)
[2021-09-18] MEDS: allopurinoL 100 MG TAB PO SCH (08:18)
[2021-09-18] MEDS: HYDROcodone/APAP 10-325MG 1 EACH TAB PO PRN ×2 (10:27→23:02)
[2021-09-18] MEDS ORDERED: LORazepam 0.5 MG TAB PO PRN (14:16)
[2021-09-18] MEDS ORDERED: MELATONIN 3 MG TABLET PO PRN (14:16)
[2021-09-18] MEDS ORDERED: LACTULOSE 20 GM/30 ML CUP PO PRN (14:16)
[2021-09-18] MEDS: LACTATED RINGERS 1,000 ML IV SCH (14:31)
--- NOTE | 2021-09-18 14:33 | P.CONS ---
History of Present Illness - Reason for Consult Consult date: 09/18/21 Nausea, vomiting, diarrhea Requesting physician: Cat Mcdonnell - Chief Complaint Nausea and vomiting - History of Present Illness This is a pleasant 76-year-old female who presented to the emergency department with complaints of intractable nausea and vomiting. Apparently the patient was diagnosed approximately a month ago with C. diff colitis and was treated initially with outpatient antibiotics with no improvement in her symptoms. She was then admitted to the hospital on 08/30/2021 through 09-22. Infectious disease was on consulted Dificid was added during that admission. However patient's diarrhea had improved in the never were able to get a stool sample. She's continued to have nausea and vomiting mostly vomiting after drinking and large amounts of water or with her pills. She states she doesn't feel that nauseated or upset stomach however when she takes in a large culpable water will come back up. She denies any hematemesis or coffee-ground emesis. She denies any blood in her stool or black stool. She has not had diarrhea for reportedly 4 days now. She is denying any abdominal pain. She had a CT of the abdomen and pelvis on admission that shows no acute findings. She denies any fevers or chills, no sick contacts. She states that she's had an EGD and colonoscopy very remote, she has a history of bowel resection. WBC 7.6 hemoglobin 11.8 hematocrit 37 platelet count 352,000 sodium 138 potassium 2.9 BUN 19 creatinine 2.44 magnesium 1.2 total bilirubin 0.7 AST 28 ALT 9 alkaline phosphatase 94 lipase 90 Review of Systems REVIEW OF SYSTEMS: CARDIOPULMONARY: No chest pain or shortness of breath. Gastrointestinal: No epigastric or abdominal pain. Intermittent vomiting. No hematemesis, coffee-ground emesis. No rectal bleeding, or melena. GENITOURINARY: No dysuria or hematuria. MUSCULOSKELETAL: Reports normal range of motion. Joint pain. SKIN: No rashes. No jaundice. ENDOCRINE: No chills, fevers. No excessive weight gain or loss. No polydipsia or polyuria. PSYCHIATRIC: Unremarkable. NEUROLOGY: No change in mental status. Denies dizziness, headache. ENT: Vision unremarkable. CONSTITUTIONAL: No recent weight loss. No fever, chills, night sweats. Past Medical History Past Medical History: Atrial Fibrillation, Hypertension Additional Past Medical History / Comment(s): heart problems (leaking valves), c-diff, gout History of Any Multi-Drug Resistant Organisms: C-DIFF Year Discovered:: july 2021 MDRO Source:: stool Past Surgical History: Hysterectomy, Orthopedic Surgery Additional Past Surgical History / Comment(s): right shoulder, BL knee, right ankle, right great toe, bowel surgery, jaw surgery, right ear Past Psychological History: No Psychological Hx Reported Smoking Status: Former smoker Past Alcohol Use History: None Reported Past Drug Use History: None Reported Medications and Allergies Home Medications Medication Instructions Recorded Confirmed Type Apixaban [Eliquis] 5 mg PO BID 08/30/21 09/17/21 History Diphenox-Atrop 2.5-0.025 mg 1 tab PO QID 08/30/21 09/17/21 History [Lomotil] Furosemide [Lasix] 40 mg PO BID 08/30/21 09/17/21 History HYDROcodone/APAP 10-325MG [[place] 1 tab PO Q8H PRN 08/30/21 09/17/21 History 10-325] allopurinoL [Zyloprim] 100 mg PO DAILY 08/30/21 09/17/21 History carvediloL [Coreg] 6.25 mg PO BID 08/30/21 09/17/21 History Acetaminophen Tab [Tylenol] 650 mg PO Q6HR PRN tab 09/02/21 09/17/21 Rx Pantoprazole Sodium [Protonix] 40 mg PO DAILY #30 tab 09/02/21 09/17/21 Rx Potassium Chloride [K-Tab ER] 20 meq PO DAILY 30 Days #30 tab 09/02/21 09/17/21 Rx ondansetron HCL [Zofran] 8 mg PO Q8H PRN #30 tab 09/02/21 09/17/21 Rx Prochlorperazine [Compazine] 10 mg PO Q8H PRN 09/17/21 09/17/21 History Allergies Allergy/AdvReac Type Severity Reaction Status Date / Time clindamycin Allergy Unknown Verified 09/17/21 18:13 latex Allergy Unknown Verified 09/17/21 18:13 Penicillins Allergy Rash/Hives Verified 09/17/21 18:13 bhavya Allergy Unknown Verified 09/17/21 18:13 Sulfa (Sulfonamide Allergy Unknown Verified 09/17/21 18:13 Antibiotics) Physical Exam Vitals: Vital Signs Temp Pulse Pulse Resp BP BP Pulse Ox 09/18/21 07:00 97.8 F 71 18 131/69 98 09/18/21 02:20 97.6 F 81 17 112/67 98 09/17/21 22:56 97.8 F 78 16 98/66 100 09/17/21 21:00 89 20 118/70 97 09/17/21 18:48 98 F 80 18 118/62 98 09/17/21 14:43 97.4 F L 74 16 121/78 97 Intake and Output 09/17/21 09/18/21 09/18/21 22:59 06:59 14:59 Other: # Voids 0 1 1 Weight 91.626 kg General appearance: The patient is alert, oriented, appears in no acute distress. HET: Head is normocephalic and atraumatic. Conjunctiva pink. Sclera anicteric. Neck: Supple without lymphadenopathy. Trachea midline. Heart: S1 S2. Regular rate and rhythm. Lungs: Clear to auscultation. Abdomen: Soft, nontender, nondistended with bowel sounds. No guarding or rigidity. Skin: No rashes. No jaundice. Extremities: Normal skin color and turgor. No pedal edema. Neurological: No focal deficits. Alert and oriented x3. Results CBC & Chem 7: 09/17/21 15:07 09/17/21 15:07 Labs: Abnormal Lab Results - Last 24 Hours (Table) 09/17/21 09/17/21 09/17/21 Range/Units 15:07 15:07 15:36 RDW 16.2 H (11.5-15.5) % Potassium 2.9 L (3.5-5.1) mmol/L Carbon Dioxide 31 H (22-30) mmol/L BUN 19 H (7-17) mg/dL Creatinine 2.44 H (0.52-1.04) mg/dL Calcium 7.6 L (8.4-10.2) mg/dL Ionized Calcium Ivonne (4.5-5.3) mg/dL Magnesium 1.2 L (1.6-2.3) mg/dL Total Protein 5.0 L (6.3-8.2) g/dL Albumin 2.5 L (3.5-5.0) g/dL Urine Appearance Turbid H (Clear) Urine Protein 1+ H (Negative) Urine Blood Small H (Negative) Ur Leukocyte Esterase Large H (Negative) Urine RBC 60 H (0-5) /hpf Urine WBC >182 H (0-5) /hpf Urine WBC Clumps Many H (None) /hpf Ur Squamous Epith Cells 31 H (0-4) /hpf Urine Bacteria Moderate H (None) /hpf Hyaline Casts 52 H (0-2) /lpf Urine Mucus Occasional H (None) /hpf Urine Yeast (Budding) Few H (None) /hpf 09/17/21 Range/Units 16:11 RDW (11.5-15.5) % Potassium (3.5-5.1) mmol/L Carbon Dioxide (22-30) mmol/L BUN (7-17) mg/dL Creatinine (0.52-1.04) mg/dL Calcium (8.4-10.2) mg/dL Ionized Calcium Ivonne 4.2 L (4.5-5.3) mg/dL Magnesium (1.6-2.3) mg/dL Total Protein (6.3-8.2) g/dL Albumin (3.5-5.0) g/dL Urine Appearance (Clear) Urine Protein (Negative) Urine Blood (Negative) Ur Leukocyte Esterase (Negative) Urine RBC (0-5) /hpf Urine WBC (0-5) /hpf Urine WBC Clumps (None) /hpf Ur Squamous Epith Cells (0-4) /hpf Urine Bacteria (None) /hpf Hyaline Casts (0-2) /lpf Urine Mucus (None) /hpf Urine Yeast (Budding) (None) /hpf Microbiology - Last 24 Hours (Table) 09/17/21 15:36 Urine Culture - Preliminary Urine,Clean Catch CT scan - abdomen: report reviewed (No acute findings) Assessment and Plan (1) Nausea and vomiting Narrative/Plan: 76-year-old female who's had intermittent vomiting for the last 2 months duration. She was recently diagnosed with C. diff colitis a little over a month ago but continued to have nausea vomiting and some diarrhea. She was readmitted to the hospital however her diarrhea improved and she was seen by infectious disease. They did not believe that she had a relapse of her C. diff. She had been treated with vancomycin. She states that she has intermittent vomiting with certain liquids such as water as well as sometimes her pills. She states she does well with chicken broth and popsicles. She denies any history of ulcers, denies NSAID use, and no history of acid reflux. Unsure of etiology at this time, will proceed with EGD. Patient is on Ahlquist will discontinue Ahlquist and plan for EGD on Saturday. Current Visit: Yes Status: Acute Code(s): R11.2 - NAUSEA WITH VOMITING, UNSPECIFIED SNOMED Code(s): 32885121 (2) Hypokalemia Current Visit: Yes Status: Acute Code(s): E87.6 - HYPOKALEMIA SNOMED Code(s): 81078554 (3) Hypomagnesemia Current Visit: Yes Status: Acute Code(s): E83.42 - HYPOMAGNESEMIA SNOMED Code(s): 216671544 (4) Acute renal failure Current Visit: No Status: Acute Code(s): N17.9 - ACUTE KIDNEY FAILURE, UNSPECIFIED SNOMED Code(s): 16610276 (5) History of Clostridioides difficile colitis Current Visit: No Status: Acute Code(s): Z86.19 - PERSONAL HISTORY OF OTHER INFECTIOUS AND PARASITIC DISEASES SNOMED Code(s): 260977040 Plan: 1. Continue symptomatic and supportive care 2. Continue antiemetics as ordered 3. Hold Eliquis 4. Patient may have clear liquid diet, advance as tolerated 5. We'll plan on EGD on Saturday. Procedure discussed with patient as well as her granddaughter including risks and benefits. Patient willing to proceed Thank you for this consultation, we'll continue to follow. Dr. Braxton Mccallum I agree with the dictator's note, documented as a scribe by Any Hagen.
--- NOTE | 2021-09-18 15:04 | US ---
EXAMINATION TYPE: US kidneys/renal and bladder DATE OF EXAM: 09/18/2021 COMPARISON: CT 09/17/21 CLINICAL HISTORY: asseSS for CK D. assess for CKD EXAM MEASUREMENTS: Right Kidney: 8.8 x 4.1 x 4.4 cm Left Kidney: 8.5 x 4.3 x 3.2 cm Right Kidney: Cyst seen hanging off inferior pole measuring 1.1 x 0.9 x 0.8 cm Left Kidney: No hydronephrosis or masses seen Bladder: anechoic Bilateral Jets seen: No There is no evidence for hydronephrosis at this point in time. No nephrolithiasis is seen. No solid masses are identified. The urinary bladder is anechoic. Bilateral ureteral jets are seen. IMPRESSION: Simple cyst lower pole right kidney
--- NOTE | 2021-09-18 15:07 | XR ---
EXAMINATION TYPE: XR chest 2V DATE OF EXAM: 09/18/2021 COMPARISON: 08/30/2021 HISTORY: Shortness of breath TECHNIQUE: Frontal and lateral views of the chest are obtained. FINDINGS: Scattered senescent parenchymal changes noted. Hyperinflation compatible with COPD. No evidence for infiltrate. No evidence for atelectasis. Heart size is stable. Mediastinal structures are stable and grossly unremarkable. No evidence for hilar prominence. Degenerative changes dorsal spine. IMPRESSION: 1. No evidence for acute pulmonary disease.
--- NOTE | 2021-09-18 17:08 | P.HPIM ---
History of Present Illness H&P Date: 09/18/21 Chief Complaint: Diarrhea This is a pleasant 76-year-old patient, follows with Dr. Brock chandra. Chronic stable medical conditions include atrial fibrillation, hypertension, osteoarthritis, baseline uses a walker. Patient was discharged from hospital 2 weeks ago. 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 On that admission patient was seen by ID and Dr. Del Valle. Computed tomography scan was negative, white count was normal. Dificid was discontinued. Questran was used. Patient also was felt that asymptomatic bacteriuria. Patient now presents with worsening diarrhea. No fixed pattern. It may be okay for 3 days and comes back with a vengeance several bowel movements a day. No abdominal pain. No nausea vomiting. No fever no chills. Report appetite. Patient feels rather tired. Admitted for the same. Patient denies any urinary symptoms. Rather weak and tired. Review of systems: GEN.: Tired, decreased appetite EYES: None HEENT: None NECK: None RESPIRATORY: None CARDIOVASCULAR: None GASTROINTESTINAL: As above GENITOURINARY: None MUSCULOSKELETAL: Joint pains LYMPHATICS: None HEMATOLOGICAL: None PSYCHIATRY: None NEUROLOGICAL: Uses a walker Past medical history to include: Atrial fibrillation, hypertension, leaking valves, C. diff, gout, osteoarthritis Social history: Lives with . Ex-smoker. No alcohol. Family history: Reviewed, noncontributory to presentation Physical examination: VITAL SIGNS: 97.4, 74, 16, 120/78, 97% room air GENERAL: BMI 36.9, laying in bed awake, tired. EYES: Pupils equal. Conjunctiva normal. HEENT: External appearance of nose and ears normal, oral cavity grossly normal. NECK: JVD not raised; masses not palpable. HEART: First and second heart sounds are normal; no edema. LUNGS: Respiratory rate normal; clear to auscultation. ABDOMEN: Soft, nontender, liver spleen not palpable, no masses palpable. PSYCH: Alert and oriented x3; mood and affect normal. MUSCULOSKELETAL:No Clubbing/cyanosis;muscles-grossly intact. Evidence of OA NEUROLOGICAL: Cranial nerves grossly intact; no facial asymmetry, power and sensation grossly intact. LYMPHATICS: No lymph nodes palpable in the axilla and neck INVESTIGATIONS, reviewed in the clinical context: White count 7.6 hemoglobin 11.8 platelets 352 potassium 2.9 BUN 19 creatinine 2.44 albumin 2.5 UA positive for protein 1+ leukoesterase WBC squamous epithelial cells 31 CT abdomen pelvis: No major abnormality. Fatty infiltration of the liver. EKG tracing personally reviewed by me: Atrial fibrillation, rate controlled Chest x-ray film personally reviewed by me-cardiomegaly Previous labs: Creatinine 1.94 [09/02/2021] Assessment and plan: -Recurrent intermittent severe diarrhea Patient is a repeated bouts of C. diff. Patient was here and discharged 2 weeks ago. Also with diarrhea. C. diff was negative. Computed tomography scan abdomen was unremarkable. Normal white count. Was seen by ID. Was treated with Questran. Now patient presents with worsening intermittent severe diarrhea. Normal white count again. CT scans unremarkable. Differential includes irritable bowel syndrome, microscopic colitis. Patient will need endoscopy. Today liquid diet. Stool for C. diff. Consult GI and ID. -Persistent atrial fibrillation, rate controlled Coreg 6.25 mg twice a day. Eliquis 5 mg twice a day. -Primary osteoarthritis Tylenol as needed -Chronic gait dysfunction uses a walker at baseline Fall precautions -Severe hypokalemia Replace potassium -Chronic kidney disease, suspect nephrosclerosis stage III Follow renal function. Renal ultrasound -Rule out acute kidney injury Hold Lasix. IV fluids. -Asymptomatic bacteriuria. Patient denies any urinary symptoms. No fever no white count.: Hold Antibiotics. Clear liquid diet. Consult GI and ID. Oral antibiotics. Renal ultrasound. IV fluids. Hold Lasix. Discussed with patient. 2-D echocardiogram. Past Medical History Past Medical History: Atrial Fibrillation, Hypertension Additional Past Medical History / Comment(s): heart problems (leaking valves), c-diff, gout History of Any Multi-Drug Resistant Organisms: C-DIFF Date of last positivie culture/infection: july 2021 MDRO Source:: stool Past Surgical History: Hysterectomy, Orthopedic Surgery Additional Past Surgical History / Comment(s): right shoulder, BL knee, right ankle, right great toe, bowel surgery, jaw surgery, right ear Past Psychological History: No Psychological Hx Reported Smoking Status: Former smoker Past Alcohol Use History: None Reported Past Drug Use History: None Reported Medications and Allergies Home Medications Medication Instructions Recorded Confirmed Type Apixaban [Eliquis] 5 mg PO BID 08/30/21 09/17/21 History Diphenox-Atrop 2.5-0.025 mg 1 tab PO QID 08/30/21 09/17/21 History [Lomotil] Furosemide [Lasix] 40 mg PO BID 08/30/21 09/17/21 History HYDROcodone/APAP 10-325MG [Tiona 1 tab PO Q8H PRN 08/30/21 09/17/21 History 10-325] allopurinoL [Zyloprim] 100 mg PO DAILY 08/30/21 09/17/21 History carvediloL [Coreg] 6.25 mg PO BID 08/30/21 09/17/21 History Acetaminophen Tab [Tylenol] 650 mg PO Q6HR PRN tab 09/02/21 09/17/21 Rx Pantoprazole Sodium [Protonix] 40 mg PO DAILY #30 tab 09/02/21 09/17/21 Rx Potassium Chloride [K-Tab ER] 20 meq PO DAILY 30 Days #30 tab 09/02/21 09/17/21 Rx ondansetron HCL [Zofran] 8 mg PO Q8H PRN #30 tab 09/02/21 09/17/21 Rx Prochlorperazine [Compazine] 10 mg PO Q8H PRN 09/17/21 09/17/21 History Allergies Allergy/AdvReac Type Severity Reaction Status Date / Time clindamycin Allergy Unknown Verified 09/17/21 18:13 latex Allergy Unknown Verified 09/17/21 18:13 Penicillins Allergy Rash/Hives Verified 09/17/21 18:13 bhavya Allergy Unknown Verified 09/17/21 18:13 Sulfa (Sulfonamide Allergy Unknown Verified 09/17/21 18:13 Antibiotics) Physical Exam Vitals: Vital Signs Temp Pulse Pulse Resp BP BP Pulse Ox 09/18/21 07:00 97.8 F 71 18 131/69 98 09/18/21 02:20 97.6 F 81 17 112/67 98 09/17/21 22:56 97.8 F 78 16 98/66 100 09/17/21 21:00 89 20 118/70 97 09/17/21 18:48 98 F 80 18 118/62 98 09/17/21 14:43 97.4 F L 74 16 121/78 97 Intake and Output 09/17/21 09/18/21 09/18/21 22:59 06:59 14:59 Other: # Voids 0 1 1 Weight 91.626 kg Results CBC & Chem 7: 09/17/21 15:07 09/17/21 15:07 Labs: Abnormal Lab Results - Last 24 Hours (Table) 09/17/21 09/17/21 09/17/21 Range/Units 15:07 15:07 15:36 RDW 16.2 H (11.5-15.5) % Potassium 2.9 L (3.5-5.1) mmol/L Carbon Dioxide 31 H (22-30) mmol/L BUN 19 H (7-17) mg/dL Creatinine 2.44 H (0.52-1.04) mg/dL Calcium 7.6 L (8.4-10.2) mg/dL Ionized Calcium Ivonne (4.5-5.3) mg/dL Magnesium 1.2 L (1.6-2.3) mg/dL Total Protein 5.0 L (6.3-8.2) g/dL Albumin 2.5 L (3.5-5.0) g/dL Urine Appearance Turbid H (Clear) Urine Protein 1+ H (Negative) Urine Blood Small H (Negative) Ur Leukocyte Esterase Large H (Negative) Urine RBC 60 H (0-5) /hpf Urine WBC >182 H (0-5) /hpf Urine WBC Clumps Many H (None) /hpf Ur Squamous Epith Cells 31 H (0-4) /hpf Urine Bacteria Moderate H (None) /hpf Hyaline Casts 52 H (0-2) /lpf Urine Mucus Occasional H (None) /hpf Urine Yeast (Budding) Few H (None) /hpf 09/17/21 Range/Units 16:11 RDW (11.5-15.5) % Potassium (3.5-5.1) mmol/L Carbon Dioxide (22-30) mmol/L BUN (7-17) mg/dL Creatinine (0.52-1.04) mg/dL Calcium (8.4-10.2) mg/dL Ionized Calcium Ivonne 4.2 L (4.5-5.3) mg/dL Magnesium (1.6-2.3) mg/dL Total Protein (6.3-8.2) g/dL Albumin (3.5-5.0) g/dL Urine Appearance (Clear) Urine Protein (Negative) Urine Blood (Negative) Ur Leukocyte Esterase (Negative) Urine RBC (0-5) /hpf Urine WBC (0-5) /hpf Urine WBC Clumps (None) /hpf Ur Squamous Epith Cells (0-4) /hpf Urine Bacteria (None) /hpf Hyaline Casts (0-2) /lpf Urine Mucus (None) /hpf Urine Yeast (Budding) (None) /hpf Microbiology - Last 24 Hours (Table) 09/17/21 15:36 Urine Culture - Preliminary Urine,Clean Catch
--- NOTE | 2021-09-18 22:36 | P.CONS ---
History of Present Illness - Reason for Consult Consult date: 09/18/21 - History of Present Illness Patient is a 76-year female with a past medical history significant for recurrent urinary tract infection hypertension and C. difficile colitis, patient did have a normal white count on her last admission and CT of abdominal pelvis was negative for any colitis is recommended no antibiotic therapy as the patient diarrhea resolved and did not have any loose stool in her hospital stay from 08/30/2021 to 09/02/2021, patient is now off brought back to the hospital concerning for nausea vomiting and diarrhea symptom has been going on for the last few days before presentation to the hospital patient mention whenever she eats, the next thing She is going to the bathroom denies any blood or mucus in the stool has been complaining of some crampy abdominal pain, patient on presentation to the hospital was afebrile no fever have recorded subsequently did have a normal white count BUN/creatinine was elevated liver there is a normal patient did have a positive UA patient did have a CT of abdominal pelvis no acute abnormality of abdominal pelvis patient was admitted to hospital she was started on oral vancomycin stool for C. difficile was not collected infectious disease was consulted for further management of antibiotic therapy Past Medical History Past Medical History: Atrial Fibrillation, Hypertension Additional Past Medical History / Comment(s): heart problems (leaking valves), c-diff, gout History of Any Multi-Drug Resistant Organisms: C-DIFF Year Discovered:: july 2021 MDRO Source:: stool Past Surgical History: Hysterectomy, Orthopedic Surgery Additional Past Surgical History / Comment(s): right shoulder, BL knee, right ankle, right great toe, bowel surgery, jaw surgery, right ear Past Psychological History: No Psychological Hx Reported Smoking Status: Former smoker Past Alcohol Use History: None Reported Past Drug Use History: None Reported Medications and Allergies Home Medications Medication Instructions Recorded Confirmed Type Apixaban [Eliquis] 5 mg PO BID 08/30/21 09/17/21 History Diphenox-Atrop 2.5-0.025 mg 1 tab PO QID 08/30/21 09/17/21 History [Lomotil] Furosemide [Lasix] 40 mg PO BID 08/30/21 09/17/21 History HYDROcodone/APAP 10-325MG [[place] 1 tab PO Q8H PRN 08/30/21 09/17/21 History 10-325] allopurinoL [Zyloprim] 100 mg PO DAILY 08/30/21 09/17/21 History carvediloL [Coreg] 6.25 mg PO BID 08/30/21 09/17/21 History Acetaminophen Tab [Tylenol] 650 mg PO Q6HR PRN tab 09/02/21 09/17/21 Rx Pantoprazole Sodium [Protonix] 40 mg PO DAILY #30 tab 09/02/21 09/17/21 Rx Potassium Chloride [K-Tab ER] 20 meq PO DAILY 30 Days #30 tab 09/02/21 09/17/21 Rx ondansetron HCL [Zofran] 8 mg PO Q8H PRN #30 tab 09/02/21 09/17/21 Rx Prochlorperazine [Compazine] 10 mg PO Q8H PRN 09/17/21 09/17/21 History Allergies Allergy/AdvReac Type Severity Reaction Status Date / Time clindamycin Allergy Unknown Verified 09/17/21 18:13 latex Allergy Unknown Verified 09/17/21 18:13 Penicillins Allergy Rash/Hives Verified 09/17/21 18:13 bhavya Allergy Unknown Verified 09/17/21 18:13 Sulfa (Sulfonamide Allergy Unknown Verified 09/17/21 18:13 Antibiotics) Physical Exam Vitals: Vital Signs Temp Pulse Pulse Resp BP BP Pulse Ox 09/18/21 13:55 97.7 F 67 16 105/65 97 09/18/21 07:00 97.8 F 71 18 131/69 98 09/18/21 02:20 97.6 F 81 17 112/67 98 09/17/21 22:56 97.8 F 78 16 98/66 100 09/17/21 21:00 89 20 118/70 97 09/17/21 18:48 98 F 80 18 118/62 98 Intake and Output 09/18/21 09/18/21 09/18/21 06:59 14:59 22:59 Other: # Voids 1 1 Results CBC & Chem 7: 09/17/21 15:07 09/17/21 15:07 Labs: Abnormal Lab Results - Last 24 Hours (Table) 09/17/21 09/17/21 Range/Units 15:36 16:11 Ionized Calcium Ivonne 4.2 L (4.5-5.3) mg/dL Urine Appearance Turbid H (Clear) Urine Protein 1+ H (Negative) Urine Blood Small H (Negative) Ur Leukocyte Esterase Large H (Negative) Urine RBC 60 H (0-5) /hpf Urine WBC >182 H (0-5) /hpf Urine WBC Clumps Many H (None) /hpf Ur Squamous Epith Cells 31 H (0-4) /hpf Urine Bacteria Moderate H (None) /hpf Hyaline Casts 52 H (0-2) /lpf Urine Mucus Occasional H (None) /hpf Urine Yeast (Budding) Few H (None) /hpf Microbiology - Last 24 Hours (Table) 09/17/21 15:36 Urine Culture - Preliminary Urine,Clean Catch Assessment and Plan Plan: 1patient presented to hospital with acute nausea vomiting diarrhea unable to keep anything down and this patient did have a recent documented history of C. difficile colitis however last admission to this facility patient was unable to provide any stool sample as diarrhea resolved by the time she was in the hospital no patient with no fever no white count with no evidence of colitis on the CT clinically not behaving as active C. difficile colitis. 2we will wait for the stool for C. difficile and will also request stool cultures. 3May continue with oral vancomycin awaiting further work-up to be completed. We will follow on clinical condition and cultures to further adjust medication if needed Thank you for this consultation will follow this patient along with you Time with Patient: Greater than 30
[2021-09-19] MEDS: LACTATED RINGERS 1,000 ML IV SCH ×3 (00:43→22:13)
[2021-09-19] MEDS: ACETAMINOPHEN TAB 325 MG TAB PO PRN ×2 (01:56→22:15)
[2021-09-19 06:34] LABS: ALT 8 U/L (4-34); AST 25 U/L (14-36); African American GFR (CKD) 29 (>60 ml/min/1.73 sqM); Albumin 2.2 g/dL (3.5-5.0); Alkaline Phosphatase 85 U/L (38-126); Anion Gap 8 mmol/L; Blood Urea Nitrogen 14 mg/dL (7-17); C Reactive Protein 5.4 mg/dL (<1.0); Calcium 7.6 mg/dL (8.4-10.2); Carbon Dioxide 22 mmol/L (22-30); Chloride 106 mmol/L (98-107); Globulin 2.3 g/dL; Glucose 62 mg/dL (74-99); Non-African American GFR(CKD) 25 (>60 ml/min/1.73 sqM); Sodium 136 mmol/L (137-145); Total Bilirubin 0.4 mg/dL (0.2-1.3); Total Protein 4.5 g/dL (6.3-8.2)
[2021-09-19] MEDS: POTASSIUM CHLORIDE ER 20 MEQ TAB.ER PO SCH (07:51)
[2021-09-19] MEDS: VANCOMYCIN 125 MG CAPSULE PO SCH ×4 (07:51→22:13)
[2021-09-19] MEDS: carvediloL 6.25 MG TAB PO SCH ×2 (07:52→18:11)
[2021-09-19] MEDS: allopurinoL 100 MG TAB PO SCH (07:52)
[2021-09-19] MEDS: PANTOPRAZOLE 40 MG TABLET PO SCH (07:52)
[2021-09-19] MEDS: HYDROcodone/APAP 10-325MG 1 EACH TAB PO PRN ×2 (08:27→18:14)
[2021-09-19 08:57] LABS: Basophils # (A) 0.05 X 10*3/uL (0.00-0.10); Basophils % (A) 0.7 %; Eosinophils # (A) 0.18 X 10*3/uL (0.04-0.35); Eosinophils % (A) 2.6 %; HCT 31.8 % (37.2-46.3); HGB 9.9 g/dL (12.0-15.0); Immature Grans, Automated 0.4 %; Lymphocytes # (A) 2.18 X 10*3/uL (0.90-5.00); MCH 27.4 pg (27.0-32.0); MCHC 31.1 g/dL (32.0-37.0); MCV 88.1 fL (80.0-97.0); Mean Platelet Volume 11.4 fL (9.5-12.2); Monocytes # (A) 0.66 X 10*3/uL (0.20-1.00); Monocytes % (A) 9.7 %; NRBC Per 100 WBC 0.3 /100 WBCS (0.0-0.0); Neutrophils # (A) 3.71 X 10*3/uL (1.80-7.70); Neutrophils % (A) 54.6 %; Platelet Count 317 X 10*3/uL (140-440); RBC 3.61 X 10*6/uL (4.10-5.20); RDW 16.2 % (11.5-14.5); WBC 6.81 X 10*3/uL (4.50-10.00)
[2021-09-19] MEDS ORDERED: Potassium Replacement Protocol 1 EACH MISC MISCELLANE PRN (09:53)
--- NOTE | 2021-09-19 13:37 | CA ---
Transthoracic Echo Report Name: Danii Yao Age: 76 Gender: F : 1945 Exam Date: 09/19/2021 08:00 Exam Location: [facility] Ht (in): 62 Wt (lb): 202 Ordering Physician: Paul Eric MD Attending/Referring Phys: Director [facility] Sivan Brooks, JOVI Procedure CPT: Indications: Assess LV Function Cardiac Hx: Technical Quality: Fair Contrast 1: Total Dose (mL): Contrast 2: Total Dose (mL): MEASUREMENTS (Male / Female) Normal Values 2D ECHO LV Systolic Diameter PLAX 4.7 cm IVS Diastolic Thickness 2.0 cm 0.6 - 1.0 / 0.6 - 0.9 cm LVPW Diastolic Thickness 1.4 cm 0.6 - 1.0 / 0.6 - 0.9 cm LA Volume 114.8 cm??? 18 - 58 / 22 - 52 cm??? M-MODE Aortic Root Diameter MM 3.1 cm LA Systolic Diameter MM 4.0 cm LA Ao Ratio MM 1.3 AV Cusp Separation MM 1.7 cm DOPPLER TR Peak Velocity 270.4 cm/s TR Peak Gradient 29.2 mmHg Right Ventricular Systolic Press 34.2 mmHg FINDINGS Left Ventricle Normal left ventricular size, mild wall thickness, systolic function with no obvious regional wall motion abnormalities. Left ventricular ejection fraction 55%. Right Ventricle The right ventricle is normal in size and function. Right Atrium The right atrium is normal in size. Left Atrium Severely increased left atrial volume. Moderately increased left atrial area. Mitral Valve Structurally normal mitral valve without significant stenosis or prolapse. There is mild mitral regurgitation. Aortic Valve Structurally normal aortic valve without significant sclerosis or stenosis. There is mild to moderate aortic regurgitation. Tricuspid Valve Structurally normal tricuspid valve without significant stenosis. Pulmonary artery systolic pressure is normal. Pulmonic Valve Pulmonic valve not well visualized. Pericardium Normal pericardium without effusion. Aorta Normal aortic root dimension. CONCLUSIONS Left ventricular ejection fraction 55%. Severely dilated left atrium Mild mitral regurgitation Mild to moderate aortic regurgitation No pericardial effusion Previewed by: Dr. Regan Aparicio DO (Electronically Signed) Final Date: 19 September 2021 13:36
--- NOTE | 2021-09-19 13:45 | P.PN ---
Subjective Progress Note Date: 09/19/21 Principal diagnosis: Nausea and vomiting This is a pleasant 76-year-old female who presented to the emergency department with complaints of intractable nausea and vomiting. Apparently the patient was diagnosed approximately a month ago with C. diff colitis and was treated initi ally with outpatient antibiotics with no improvement in her symptoms. She was then admitted to the hospital on 08/30/2021 through 09-22. Infectious disease was on consulted Dificid was added during that admission. However patient's diarrhea had improved in the never were able to get a stool sample. She's continued to have nausea and vomiting mostly vomiting after drinking and large amounts of water or with her pills. She states she doesn't feel that nauseated or upset stomach however when she takes in a large culpable water will come back up. She denies any hematemesis or coffee-ground emesis. She denies any blood in her stool or black stool. She has not had diarrhea for reportedly 4 days now. She is denying any abdominal pain. She had a CT of the abdomen and pelvis on admission that shows no acute findings. She denies any fevers or chills, no sick contacts. She states that she's had an EGD and colonoscopy very remote, she has a history of bowel resection. 09/19/2021: Patient seen and examined is a follow-up today for nausea vomiting. She states her nausea and vomiting has improved some. She remains on a clear liquid diet. She states she is still having trouble with keeping pills down. Denies any abdominal pain, no hematemesis. No acute changes through the night. Plan is for EGD tomorrow. Objective - Vital Signs Vital signs: Vital Signs Temp 98.4 F 09/19/21 07:35 Pulse 71 09/19/21 07:35 Resp 18 09/19/21 07:35 BP 123/73 09/19/21 07:35 Pulse Ox 97 09/19/21 07:35 FiO2 Intake & Output 09/18/21 09/19/21 09/19/21 18:59 06:59 18:59 Intake Total 1210 Balance 1210 Intake: Intake, IV Titration 1210 Amount Lactated Ringers 1,000 ml 1210 @ 100 mls/hr IV .Q10H [facility] Rx#:[id number] Other: Voiding Method Bedside Commode # Voids 1 3 - Exam General appearance: The patient is alert, oriented, appears in no acute distress. HET: Head is normocephalic and atraumatic. Conjunctiva pink. Sclera anicteric. Neck: Supple without lymphadenopathy. Abdomen: Soft, nontender, nondistended with bowel sounds. No guarding or rigidity. Extremities: Normal skin color and turgor. No pedal edema Skin: No rashes, no jaundice Neurological: No focal deficits. Alert and oriented x3. - Labs CBC & Chem 7: 09/19/21 05:34 09/19/21 05:34 Labs: Abnormal Lab Results - Last 24 Hours (Table) 09/19/21 09/19/21 09/19/21 Range/Units 05:34 05:34 05:34 RBC 3.61 L (4.10-5.20) X 10*6/uL Hgb 9.9 L (12.0-15.0) g/dL Hct 31.8 L (37.2-46.3) % MCHC 31.1 L (32.0-37.0) g/dL RDW 16.2 H (11.5-14.5) % Absolute Nucleated RBC 0.02 H (0.00-0.00) X 10*3/uL NRBC/100 WBC Diff 0.3 H (0.0-0.0) /100 WBCS Sodium 136 L (137-145) mmol/L Potassium 3.0 L (3.5-5.1) mmol/L Creatinine 1.89 H (0.52-1.04) mg/dL Glucose 62 L (74-99) mg/dL Calcium 7.6 L (8.4-10.2) mg/dL C-Reactive Protein 5.4 H (<1.0) mg/dL Total Protein 4.5 L (6.3-8.2) g/dL Albumin 2.2 L (3.5-5.0) g/dL Procalcitonin 0.11 H (0.02-0.09) ng/mL Microbiology - Last 24 Hours (Table) 09/17/21 15:36 Urine Culture - Preliminary Urine,Clean Catch Gram Neg Bacilli Assessment and Plan (1) Nausea and vomiting Narrative/Plan: 76-year-old female who's had intermittent vomiting for the last 2 months duration. She was recently diagnosed with C. diff colitis a little over a month ago but continued to have nausea vomiting and some diarrhea. She was readmitted to the hospital however her diarrhea improved and she was seen by infectious disease. They did not believe that she had a relapse of her C. diff. She had been treated with vancomycin. She states that she has intermittent vomiting with certain liquids such as water as well as sometimes her pills. She states she does well with chicken broth and popsicles. She denies any history of ulcers, denies NSAID use, and no history of acid reflux. Unsure of etiology at this time, will proceed with EGD. Patient is on Ahlquist will discontinue Ahlquist and plan for EGD on Saturday. Current Visit: Yes Status: Acute Code(s): R11.2 - NAUSEA WITH VOMITING, UNSPECIFIED SNOMED Code(s): 38775263 (2) Hypokalemia Current Visit: Yes Status: Acute Code(s): E87.6 - HYPOKALEMIA SNOMED Code(s): 30676938 (3) Hypomagnesemia Current Visit: Yes Status: Acute Code(s): E83.42 - HYPOMAGNESEMIA SNOMED Code(s): 216985077 (4) Acute renal failure Current Visit: No Status: Acute Code(s): N17.9 - ACUTE KIDNEY FAILURE, UNSPECIFIED SNOMED Code(s): 88786109 (5) History of Clostridioides difficile colitis Current Visit: No Status: Acute Code(s): Z86.19 - PERSONAL HISTORY OF OTHER INFECTIOUS AND PARASITIC DISEASES SNOMED Code(s): 130618281 Plan: 1. Continue symptomatic and supportive care 2. Continue antiemetics as ordered 3. Hold Eliquis 4. Nothing by mouth after midnight 5. Patient scheduled for EGD tomorrow. Procedure discussed with patient as well as her granddaughter including risks and benefits. Patient willing to proceed Thank you for this consultation, we'll continue to follow. Dr. Braxton Mccallum I agree with the dictator's note, documented as a scribe by Any Hagen.
--- NOTE | 2021-09-19 14:24 | P.PN ---
Progress Note - Text Progress Note Date: 09/19/21 Chief Complaint: Diarrhea This is a pleasant 76-year-old patient, follows with Dr. Brock chandra. Chronic stable medical conditions include atrial fibrillation, hypertension, osteoarthritis, baseline uses a walker. Patient was discharged from hospital 2 weeks ago. 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 On that admission patient was seen by ID and Dr. Del Valle. Computed tomography scan was negative, white count was normal. Dificid was discontinued. Questran was used. Patient also was felt that asymptomatic bacteriuria. Patient now presents with worsening diarrhea. No fixed pattern. It may be okay for 3 days and comes back with a vengeance several bowel movements a day. No abdominal pain. No nausea vomiting. No fever no chills. Report appetite. Patient feels rather tired. Admitted for the same. Patient denies any urinary symptoms. Rather weak and tired. September 19: No diarrhea. No nausea vomiting. For endoscopy tomorrow. Clear liquid diet. Active Medications Acetaminophen (Acetaminophen Tab 325 Mg Tab) 650 mg PO Q6HR PRN PRN Reason: Fever and/ or Pain Last Admin: 09/19/21 01:56 Dose: 650 mg Hydrocodone Bitart/Acetaminophen (Hydrocodone/Apap 10-325mg 1 Each Tab) 1 each PO Q8H PRN PRN Reason: Pain Last Admin: 09/19/21 08:27 Dose: 1 each Allopurinol (Allopurinol 100 Mg Tab) 100 mg PO DAILY [facility] Last Admin: 09/19/21 07:52 Dose: 100 mg Carvedilol (Carvedilol 6.25 Mg Tab) 6.25 mg PO BID-W/MEALS [facility] Last Admin: 09/19/21 07:52 Dose: 6.25 mg Lactated Ringer's (Lactated Ringers) 1,000 mls @ 100 mls/hr IV .Q10H [facility] Last Admin: 09/19/21 00:43 Dose: Not Given Lactulose (Lactulose 20 Gm/30 Ml Cup) 20 gm PO DAILY PRN PRN Reason: Constipation Lorazepam (Lorazepam 0.5 Mg Tab) 0.5 mg PO Q6HR PRN PRN Reason: Anxiety Melatonin (Melatonin 3 Mg Tablet) 3 mg PO HS PRN PRN Reason: Insomnia Miscellaneous Information (Potassium Replacement Protocol 1 Each Misc) 1 each MISCELLANE DAILY PRN; Protocol PRN Reason: Per Protocol Naloxone HCl (Naloxone 0.4 Mg/Ml 1 Ml Vial) 0.2 mg IV Q2M PRN PRN Reason: Opioid Reversal Ondansetron HCl (Ondansetron 4 Mg/2 Ml Vial) 4 mg IVP Q8HR PRN PRN Reason: Nausea And Vomiting Last Admin: 09/18/21 08:31 Dose: 4 mg Pantoprazole Sodium (Pantoprazole 40 Mg Tablet) 40 mg PO AC-BRKFST [facility] Last Admin: 09/19/21 07:52 Dose: 40 mg Potassium Chloride (Potassium Chloride Er 20 Meq Tab.Er) 20 meq PO DAILY [facility] Last Admin: 09/19/21 07:51 Dose: Not Given Prochlorperazine Maleate (Prochlorperazine 5 Mg Tab) 5 mg PO Q8HR PRN PRN Reason: Nausea And Vomiting Vancomycin HCl (Vancomycin 125 Mg Capsule) 125 mg PO QID [facility]; Protocol Last Admin: 09/19/21 07:51 Dose: 125 mg Past medical history to include: Atrial fibrillation, hypertension, leaking valves, C. diff, gout, osteoarthritis Social history: Lives with . Ex-smoker. No alcohol. Family history: Reviewed, noncontributory to presentation Physical examination: VITAL SIGNS: 97.9, 62, 16, 117/56, 98% on room air GENERAL: , laying in bed awake, tired. EYES: Pupils equal. Conjunctiva normal. HEENT: External appearance of nose and ears normal, oral cavity grossly normal. NECK: JVD not raised; masses not palpable. HEART: First and second heart sounds are normal; no edema. LUNGS: Respiratory rate normal; clear to auscultation. ABDOMEN: Soft, nontender, liver spleen not palpable, no masses palpable. PSYCH: Alert and oriented x3; mood and affect normal. MUSCULOSKELETAL:No Clubbing/cyanosis;muscles-grossly intact. Evidence of OA INVESTIGATIONS, reviewed in the clinical context: 2-D echocardiogram: EF 55%. Moderate aortic regurgitation. Renal ultrasound: Unremarkable. Renal cyst. September 19: White count 6.8 hemoglobin 9.9 potassium 3 creatinine 1.89 albumin 2.2 White count 7.6 hemoglobin 11.8 platelets 352 potassium 2.9 BUN 19 creatinine 2.44 albumin 2.5 UA positive for protein 1+ leukoesterase WBC squamous epithelial cells 31 CT abdomen pelvis: No major abnormality. Fatty infiltration of the liver. EKG tracing personally reviewed by me: Atrial fibrillation, rate controlled Chest x-ray film personally reviewed by me-cardiomegaly Previous labs: Creatinine 1.94 [09/02/2021] Assessment and plan: -Recurrent intermittent severe diarrhea Patient is a repeated bouts of C. diff. Patient was here and discharged 2 weeks ago. Also with diarrhea. C. diff was negative. Computed tomography scan abdomen was unremarkable. Normal white count. Was seen by ID. Was treated with Questran. Now patient presents with worsening intermittent severe diarrhea. Normal white count again. CT scans unremarkable. Differential includes irritable bowel syndrome, microscopic colitis. Patient will need endoscopy. Clear liquid diet. Stool for C. diff. pending endoscopy. No diarrhea today. -Persistent atrial fibrillation, rate controlled Coreg 6.25 mg twice a day. Eliquis 5 mg twice a day. -Primary osteoarthritis Tylenol as needed -Chronic gait dysfunction uses a walker at baseline Fall precautions -Severe hypokalemia Replace potassium -Chronic kidney disease, suspect nephrosclerosis stage III Follow renal function. Renal ultrasound: Unremarkable - acute kidney injury, prerenal and also patient on diuretics Hold Lasix. IV fluids. -Asymptomatic bacteriuria. Patient denies any urinary symptoms. No fever no white count.: Hold Antibiotics. -Moderate aortic regurgitation Clear liquid diet. Renal function improving. Pending endoscopy. No further diarrhea. Empirically on vancomycin. Highly doubt C. diff. Discussed with patient. Repeat labs
[2021-09-19] MEDS: POTASSIUM CHLORIDE 10 MEQ in WATER FOR INJECTION 1 100ML.BAG IVPB SCH ×2 (22:12→23:45)
[2021-09-20] MEDS: POTASSIUM CHLORIDE 10 MEQ in WATER FOR INJECTION 1 100ML.BAG IVPB SCH ×2 (01:20→02:20)
[2021-09-20] MEDS: HYDROcodone/APAP 10-325MG 1 EACH TAB PO PRN ×3 (01:34→19:59)
[2021-09-20 04:47] LABS: African American GFR (CKD) 32 (>60 ml/min/1.73 sqM); Anion Gap 4 mmol/L; Blood Urea Nitrogen 12 mg/dL (7-17); Calcium 7.5 mg/dL (8.4-10.2); Carbon Dioxide 24 mmol/L (22-30); Chloride 106 mmol/L (98-107); Glucose 67 mg/dL (74-99); Non-African American GFR(CKD) 28 (>60 ml/min/1.73 sqM); Potassium 3.3 mmol/L (3.5-5.1); Sodium 134 mmol/L (137-145)
[2021-09-20] MEDS: LACTATED RINGERS 1,000 ML IV SCH ×2 (06:13→17:10)
[2021-09-20] MEDS: allopurinoL 100 MG TAB PO SCH (08:40)
[2021-09-20] MEDS: PANTOPRAZOLE 40 MG TABLET PO SCH (08:40)
[2021-09-20] MEDS: carvediloL 6.25 MG TAB PO SCH ×2 (08:40→17:10)
[2021-09-20] MEDS: POTASSIUM CHLORIDE ER 20 MEQ TAB.ER PO SCH ×3 (08:40→19:57)
[2021-09-20] MEDS: VANCOMYCIN 125 MG CAPSULE PO SCH ×2 (08:40→13:31)
[2021-09-20] MEDS ORDERED: IV FLUID CONTINUATION 1,000 ML IV ONE (12:55)
[2021-09-20] MEDS ORDERED: PROPOFOL 10 MG/ML 20 ML VIAL IV ONE (13:01)
[2021-09-20] MEDS ORDERED: LIDOCAINE 2% INJ 20 MG/ML (2 ML VIAL) ONE (13:01)
--- NOTE | 2021-09-20 13:10 | P.PCN ---
Date of Procedure: 09/20/21 Procedure(s) Performed: BRIEF HISTORY: Patient is a 76-year-old, pleasant, white female scheduled for an upper endoscopy as a part of evaluation of chronic nausea vomiting for the last 2 months duration.. PROCEDURE PERFORMED: Esophagogastroduodenoscopy with biopsy. PREOPERATIVE DIAGNOSIS: Chronic nausea vomiting of 2 months duration. IV sedation per anesthesia. PROCEDURE: After informed consent was obtained, the patient was brought into the endoscopy unit. IV sedation was administered by Anesthesia under continuous monitoring. Initially the Olympus GIF-140 video endoscope was inserted into the mouth. Esophagus intubated without any difficulty. It was gradually advanced into the stomach and duodenum and carefully examined. The bulb and the second part of the duodenum appeared normal. Biopsies were done from the duodenum to rule out celiac disease. The scope at this time was withdrawn to the stomach, adequately insufflated with air, and upon careful examination, mucosa of the antrum, body, had diffuse gastritis and biopsies were done from this area. The cardia and the fundus appeared normal. The scope was then withdrawn into the esophagus. The GE junction was located at 39 cm from the incisors. Small sliding type hiatal hernia noted. The esophagus appeared normal. There were no erosions or ulcerations seen and the patient tolerated the procedure well. IMPRESSION: 1. Small hiatal hernia but no evidence of esophagitis. 2. Diffuse gastritis. RECOMMENDATIONS: The findings of this examination were discussed with the patient as well as a family. She was advised to follow with the biopsy results. She will continue with Protonix 40 mg twice daily and and for antireflux measures. Diet will be advanced as tolerated
[2021-09-20] MEDS ORDERED: Potassium Replacement Protocol 1 EACH MISC MISCELLANE PRN (17:07)
--- NOTE | 2021-09-20 20:42 | P.PN ---
Progress Note - Text Progress Note Date: 09/20/21 Chief Complaint: Diarrhea This is a pleasant 76-year-old patient, follows with Dr. Brock chandra. Chronic stable medical conditions include atrial fibrillation, hypertension, osteoarthritis, baseline uses a walker. Patient was discharged from hospital 2 weeks ago. 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 On that admission patient was seen by ID and Dr. Del Valle. Computed tomography scan was negative, white count was normal. Dificid was discontinued. Questran was used. Patient also was felt that asymptomatic bacteriuria. Patient now presents with worsening diarrhea. No fixed pattern. It may be okay for 3 days and comes back with a vengeance several bowel movements a day. No abdominal pain. No nausea vomiting. No fever no chills. Report appetite. Patient feels rather tired. Admitted for the same. Patient denies any urinary symptoms. Rather weak and tired. September 19: No diarrhea. No nausea vomiting. For endoscopy tomorrow. Clear liquid diet. September 20: Patient was seen this morning. Pending endoscopy. No nausea vomiting. No diarrhea. Later this after underwent EGD by Dr. Goss. Found to have diffuse gastritis. Put on Protonix. Active Medications Acetaminophen (Acetaminophen Tab 325 Mg Tab) 650 mg PO Q6HR PRN PRN Reason: Fever and/ or Pain Last Admin: 09/19/21 22:15 Dose: 650 mg Hydrocodone Bitart/Acetaminophen (Hydrocodone/Apap 10-325mg 1 Each Tab) 1 each PO Q8H PRN PRN Reason: Pain Last Admin: 09/20/21 19:59 Dose: 1 each Allopurinol (Allopurinol 100 Mg Tab) 100 mg PO DAILY [facility] Last Admin: 09/20/21 08:40 Dose: 100 mg Carvedilol (Carvedilol 6.25 Mg Tab) 6.25 mg PO BID-W/MEALS [facility] Last Admin: 09/20/21 17:10 Dose: 6.25 mg Lactated Ringer's (Lactated Ringers) 1,000 mls @ 100 mls/hr IV .Q10H [facility] Last Admin: 09/20/21 17:10 Dose: 100 mls/hr Ceftriaxone Sodium 1 gm/ (Sodium Chloride) 50 mls @ 100 mls/hr IVPB Q24H [facility]; Protocol Last Admin: 09/20/21 15:13 Dose: 100 mls/hr Lactulose (Lactulose 20 Gm/30 Ml Cup) 20 gm PO DAILY PRN PRN Reason: Constipation Lorazepam (Lorazepam 0.5 Mg Tab) 0.5 mg PO Q6HR PRN PRN Reason: Anxiety Melatonin (Melatonin 3 Mg Tablet) 3 mg PO HS PRN PRN Reason: Insomnia Miscellaneous Information (Potassium Replacement Protocol 1 Each Misc) 1 each MISCELLANE DAILY PRN; Protocol PRN Reason: Per Protocol Miscellaneous Information (Potassium Replacement Protocol 1 Each Misc) 1 each MISCELLANE DAILY PRN; Protocol PRN Reason: Per Protocol Naloxone HCl (Naloxone 0.4 Mg/Ml 1 Ml Vial) 0.2 mg IV Q2M PRN PRN Reason: Opioid Reversal Ondansetron HCl (Ondansetron 4 Mg/2 Ml Vial) 4 mg IVP Q8HR PRN PRN Reason: Nausea And Vomiting Last Admin: 09/18/21 08:31 Dose: 4 mg Pantoprazole Sodium (Pantoprazole 40 Mg Tablet) 40 mg PO -BR[facility] Last Admin: 09/20/21 08:40 Dose: 40 mg Potassium Chloride (Potassium Chloride Er 20 Meq Tab.Er) 20 meq PO DAILY [facility] Last Admin: 09/20/21 08:40 Dose: 20 meq Prochlorperazine Maleate (Prochlorperazine 5 Mg Tab) 5 mg PO Q8HR PRN PRN Reason: Nausea And Vomiting Past medical history to include: Atrial fibrillation, hypertension, leaking valves, C. diff, gout, osteoarthritis Social history: Lives with . Ex-smoker. No alcohol. Family history: Reviewed, noncontributory to presentation Physical examination: VITAL SIGNS: 98.2, 59, 16, 106/67, 100% room air GENERAL: , laying in bed awake, comfortable EYES: Pupils equal. Conjunctiva normal. HEENT: External appearance of nose and ears normal, oral cavity grossly normal. NECK: JVD not raised; masses not palpable. HEART: First and second heart sounds are normal; no edema. LUNGS: Respiratory rate normal; clear to auscultation. ABDOMEN: Soft, nontender, liver spleen not palpable, no masses palpable. PSYCH: Alert and oriented x3; mood and affect normal. MUSCULOSKELETAL:No Clubbing/cyanosis;muscles-grossly intact. Evidence of OA INVESTIGATIONS, reviewed in the clinical context: September 20: Potassium 3.3, creatinine 1.75 2-D echocardiogram: EF 55%. Moderate aortic regurgitation. Renal ultrasound: Unremarkable. Renal cyst. September 19: White count 6.8 hemoglobin 9.9 potassium 3 creatinine 1.89 albumin 2.2 White count 7.6 hemoglobin 11.8 platelets 352 potassium 2.9 BUN 19 creatinine 2.44 albumin 2.5 UA positive for protein 1+ leukoesterase WBC squamous epithelial cells 31 CT abdomen pelvis: No major abnormality. Fatty infiltration of the liver. EKG tracing personally reviewed by me: Atrial fibrillation, rate controlled Chest x-ray film personally reviewed by me-cardiomegaly Previous labs: Creatinine 1.94 [09/02/2021] Assessment and plan: -Recurrent intermittent severe diarrhea, possibly antibiotic associated diarrhea Patient is a repeated bouts of C. diff. Patient was here and discharged 2 weeks ago. Also with diarrhea. C. diff was negative. Computed tomography scan abdomen was unremarkable. Normal white count. Was seen by ID. Was treated with Questran. Now patient presents with worsening intermittent severe diarrhea. Normal white count again. CT scans unremarkable.: Improved with Metamucil -Antral gastritis on EGD Protonix -Persistent atrial fibrillation, rate controlled Coreg 6.25 mg twice a day. Eliquis 5 mg twice a day. -Primary osteoarthritis Tylenol as needed -Chronic gait dysfunction uses a walker at baseline Fall precautions -Severe hypokalemia Replace potassium -Chronic kidney disease, suspect nephrosclerosis stage III Follow renal function. Renal ultrasound: Unremarkable - acute kidney injury, prerenal and also patient on diuretics Hold Lasix. IV fluids. -Asymptomatic bacteriuria. Patient denies any urinary symptoms. No fever no white count.: Hold Antibiotics. -Moderate aortic regurgitation Consult cardiology Diet will be addressed today. Repeat BMP in the morning. We'll consult cardiology. Can be discharged tomorrow after seen by cardiology
[2021-09-20] MEDS: ACETAMINOPHEN TAB 325 MG TAB PO PRN (23:57)
[2021-09-21] MEDS: LACTATED RINGERS 1,000 ML IV SCH ×2 (03:21→21:40)
[2021-09-21] MEDS: HYDROcodone/APAP 10-325MG 1 EACH TAB PO PRN ×3 (03:34→21:30)
[2021-09-21] MEDS: carvediloL 6.25 MG TAB PO SCH ×2 (07:46→17:54)
[2021-09-21] MEDS: POTASSIUM CHLORIDE ER 20 MEQ TAB.ER PO SCH (07:46)
[2021-09-21] MEDS: PANTOPRAZOLE 40 MG TABLET PO SCH (07:46)
[2021-09-21] MEDS: allopurinoL 100 MG TAB PO SCH (07:47)
[2021-09-21 10:32] LABS: Anisocytosis Slight; Basophils # (A) 0.1 k/uL (0-0.2); Basophils % (A) 1 %; Eosinophils # (A) 0.2 k/uL (0-0.7); Eosinophils % (A) 4 %; HCT 36.7 % (34.0-46.0); HGB 10.8 gm/dL (11.4-16.0); Hypochromasia Marked; Lymphocytes # (A) 1.7 k/uL (1.0-4.8); Lymphocytes % (A) 30 %; MCH 28.2 pg (25.0-35.0); MCHC 29.4 g/dL (31.0-37.0); MCV 95.8 fL (80.0-100.0); Mean Platelet Volume 8.6; Monocytes # (A) 0.4 k/uL (0-1.0); Monocytes % (A) 7 %; Neutrophils # (A) 3.1 k/uL (1.3-7.7); Neutrophils % (A) 56 %; Platelet Count 241 k/uL (150-450); RBC 3.83 m/uL (3.80-5.40); RDW 16.1 % (11.5-15.5); WBC 5.5 k/uL (3.8-10.6)
[2021-09-21 10:57] LABS: African American GFR (CKD) 40 (>60 ml/min/1.73 sqM); Anion Gap 6 mmol/L; Blood Urea Nitrogen 10 mg/dL (7-17); Calcium 7.6 mg/dL (8.4-10.2); Carbon Dioxide 21 mmol/L (22-30); Chloride 109 mmol/L (98-107); Glucose 75 mg/dL (74-99); Non-African American GFR(CKD) 35 (>60 ml/min/1.73 sqM); Potassium 3.6 mmol/L (3.5-5.1); Sodium 136 mmol/L (137-145)
--- NOTE | 2021-09-21 10:59 | P.CRDCN ---
History of Present Illness History of present illness: HISTORY OF PRESENTING ILLNESS This is a pleasant 76-year-old female past medical history significant for coronary artery disease status post PCI to LAD years ago per patient, hypertension, persistent atrial fibrillation on Eliquis, recent diagnosis of C. diff, former nicotine dependence, chronic kidney disease. She follows with Dr. Feng. We have been asked to see in consultation for aortic regurgitation. Patient initially presented to the ER on 09/06/2021 with complaints of generalized weakness, nausea, vomiting, diarrhea, decreased by mouth intake, some dark stools. She was recently admitted on for similar symptoms and was diagnosed with C. diff colitis. She denies any chest pain, shortness of breath. Does endorse some LE edema. She is overall feeling slightly better, she did have some nausea and vomiting this morning. she just started eating and drinking more yesterday. She underwent EGD yesterday that revealed small hiatal hernia but no evidence of esophagitis, diffuse gastritis. DIAGNOSTICS * Echocardiogram revealed an EF 55%, severely dilated left atrium, mild mitral regurgitation, mild to moderate aortic regurgitation * Laboratory reviewed, CBC 5.5, hemoglobin 10.8, platelets 241, sodium 134, potassium 3.3, BUN 12, serum creatinine 1.75 * Current home cardiac medications include carvedilol 6.25 mg twice a day, Lasix 40 mg twice a day, Eliquis 5 mg twice a day REVIEW OF SYSTEMS At the time of my exam: CONSTITUTIONAL: Denies fever or chills. CARDIOVASCULAR: Denies chest pain, shortness of breath, orthopnea, PND or palpitations. RESPIRATORY: Denies cough. GASTROINTESTINAL: + abdominal pain, +diarrhea, +nausea + vomiting. MUSCULOSKELETAL: Denies myalgias. NEUROLOGIC: Denies numbness, tingling, headacbe or weakness. ENDOCRINE: Denies fatigue, weight change, polydipsia or polyurina. GENITOURINARY: Denies burning, hematuria or urgency with micturation. HEMATOLOGIC: Denies history of anemia or bleeding. PHYSICAL EXAMINATION Blood pressure 101/60, heart rate 80, afebrile, saturations 98% room air CONSTITUTIONAL: No apparent distress. HEENT: Head is normocephalic. Pupils are equal, round. Sclerae anicteric. Mucous membranes of the mouth are moist. No JVD. No carotid bruit. CHEST EXAMINATION: Lungs are clear to auscultation. No chest wall tenderness is noted on palpation or with deep breathing. HEART EXAMINATION: Irregular rate and rhythm. S1, S2 heard. ABDOMEN: Soft, nontender. Positive bowel sounds. EXTREMITIES: 2+ peripheral pulses, 2+ bilateral lower extremity edema and no calf tenderness. NEUROLOGIC EXAMINATION: Patient is awake, alert and oriented x3. ASSESSMENT Mild to moderate aortic regurgitation Abdominal pain, nausea, vomiting, diarrhea Reports of dark stools C. diff Gastritis reported on EGD Hypotension Hypokalemia Coronary artery disease status post PCI to LAD years ago per patient History of hypertension Persistent atrial fibrillation on Eliquis Former nicotine dependence Chronic kidney disease PLAN Monitor CBC and BMP Eliquis currently on hold per GI Hold Lasix for now given decreased PO intake, nausea, vomiting, diarrhea Mild to moderate aortic regurgitation on echocardiogram, no acute inpatient evaluation needed at this time, this can be monitored as an outpatient with patient's primary wireless architect Dr. Feng Further recommendations based on clinical course Nurse practitioner note has been reviewed by physician. Signing provider agrees with the documented findings, assessment, and plan of care. Past Medical History Past Medical History: Atrial Fibrillation, Hypertension Additional Past Medical History / Comment(s): heart problems (leaking valves), c-diff, gout History of Any Multi-Drug Resistant Organisms: C-DIFF Date of last positivie culture/infection: july 2021 MDRO Source:: stool Past Surgical History: Hysterectomy, Orthopedic Surgery Additional Past Surgical History / Comment(s): right shoulder, BL knee, right ankle, right great toe, bowel surgery, jaw surgery, right ear Past Psychological History: No Psychological Hx Reported Smoking Status: Former smoker Past Alcohol Use History: None Reported Past Drug Use History: None Reported Medications and Allergies Home Medications Medication Instructions Recorded Confirmed Type Apixaban [Eliquis] 5 mg PO BID 08/30/21 09/17/21 History Diphenox-Atrop 2.5-0.025 mg 1 tab PO QID 08/30/21 09/17/21 History [Lomotil] Furosemide [Lasix] 40 mg PO BID 08/30/21 09/17/21 History HYDROcodone/APAP 10-325MG [[place] 1 tab PO Q8H PRN 08/30/21 09/17/21 History 10-325] allopurinoL [Zyloprim] 100 mg PO DAILY 08/30/21 09/17/21 History carvediloL [Coreg] 6.25 mg PO BID 08/30/21 09/17/21 History Acetaminophen Tab [Tylenol] 650 mg PO Q6HR PRN tab 09/02/21 09/17/21 Rx Pantoprazole Sodium [Protonix] 40 mg PO DAILY #30 tab 09/02/21 09/17/21 Rx Potassium Chloride [K-Tab ER] 20 meq PO DAILY 30 Days #30 tab 09/02/21 09/17/21 Rx ondansetron HCL [Zofran] 8 mg PO Q8H PRN #30 tab 09/02/21 09/17/21 Rx Prochlorperazine [Compazine] 10 mg PO Q8H PRN 09/17/21 09/17/21 History Allergies Allergy/AdvReac Type Severity Reaction Status Date / Time clindamycin Allergy Unknown Verified 09/17/21 18:13 latex Allergy Unknown Verified 09/17/21 18:13 Penicillins Allergy Rash/Hives Verified 09/17/21 18:13 bhavya Allergy Unknown Verified 09/17/21 18:13 Sulfa (Sulfonamide Allergy Unknown Verified 09/17/21 18:13 Antibiotics) Physical Exam Vitals: Vital Signs Temp Pulse Resp BP Pulse Ox 09/21/21 09:06 97.6 F 80 20 101/60 98 09/21/21 07:50 97.3 F L 71 18 105/63 97 09/21/21 00:29 98.1 F 73 16 124/70 96 09/20/21 19:59 69 16 09/20/21 19:44 98.2 F 69 16 109/61 96 09/20/21 14:21 97.4 F L 69 18 122/72 99 Intake and Output 09/20/21 09/21/21 09/21/21 22:59 06:59 14:59 Other: Voiding Method Bedside Commode # Voids 1 1 Results 09/21/21 10:04 09/20/21 04:05 CBC 09/21/21 Range/Units 10:04 WBC 5.5 (3.8-10.6) k/uL RBC 3.83 (3.80-5.40) m/uL Hgb 10.8 L (11.4-16.0) gm/dL Hct 36.7 (34.0-46.0) % Plt Count 241 (150-450) k/uL Current Medications Generic Name Dose Route Start Last Admin Trade Name Freq PRN Reason Stop Dose Admin Acetaminophen 650 mg 09/18/21 02:09 09/20/21 23:57 Acetaminophen Tab 325 Mg Tab PO 650 mg Q6HR PRN Administration Fever and/ or Pain Hydrocodone Bitart/Acetaminophen 1 each 09/17/21 19:25 09/21/21 03:34 Hydrocodone/Apap 10-325mg 1 Each Tab PO 1 each Q8H PRN Administration Pain Allopurinol 100 mg 09/17/21 18:15 09/21/21 07:47 Allopurinol 100 Mg Tab PO 100 mg DAILY [facility] Administration Carvedilol 6.25 mg 09/17/21 21:00 09/21/21 07:46 Carvedilol 6.25 Mg Tab PO 6.25 mg BID-W/MEALS [facility] Administration Lactated Ringer's 1,000 mls @ 100 mls/hr 09/18/21 14:15 09/21/21 03:21 Lactated Ringers IV 100 mls/hr .Q10H [facility] Administration Ceftriaxone Sodium 1 gm/ 50 mls @ 100 mls/hr 09/20/21 14:00 09/20/21 15:13 Sodium Chloride IVPB 100 mls/hr Q24H [facility] Administration Protocol Lactulose 20 gm 09/18/21 14:16 Lactulose 20 Gm/30 Ml Cup PO DAILY PRN Constipation Lorazepam 0.5 mg 09/18/21 14:16 Lorazepam 0.5 Mg Tab PO Q6HR PRN Anxiety Melatonin 3 mg 09/18/21 14:16 Melatonin 3 Mg Tablet PO HS PRN Insomnia Miscellaneous Information 1 each 09/19/21 09:53 Potassium Replacement Protocol 1 Each Misc MISCELLANE DAILY PRN Per Protocol Protocol Miscellaneous Information 1 each 09/20/21 17:07 Potassium Replacement Protocol 1 Each Misc MISCELLANE DAILY PRN Per Protocol Protocol Naloxone HCl 0.2 mg 09/17/21 18:02 Naloxone 0.4 Mg/Ml 1 Ml Vial IV Q2M PRN Opioid Reversal Ondansetron HCl 4 mg 09/17/21 18:06 09/18/21 08:31 Ondansetron 4 Mg/2 Ml Vial IVP 4 mg Q8HR PRN Administration Nausea And Vomiting Pantoprazole Sodium 40 mg 09/17/21 18:15 09/21/21 07:46 Pantoprazole 40 Mg Tablet PO 40 mg AC-BRKFST [facility] Administration Potassium Chloride 20 meq 09/18/21 09:00 09/21/21 07:46 Potassium Chloride Er 20 Meq Tab.Er PO 20 meq DAILY [facility] Administration Prochlorperazine Maleate 5 mg 09/17/21 18:06 Prochlorperazine 5 Mg Tab PO Q8HR PRN Nausea And Vomiting Intake and Output 09/20/21 09/21/21 09/21/21 22:59 06:59 14:59 Other: Voiding Method Bedside Commode # Voids 1 1 09/21/21 10:04 09/20/21 04:05
--- NOTE | 2021-09-21 14:52 | P.PN ---
Subjective Progress Note Date: 09/19/21 Principal diagnosis: diarrhea Patient is a 76-year female with a past medical history taken for recurrent UTI and C. difficile colitis presented to the hospital with Dreckman nausea vomiting and diarrhea concerning for a C. difficile CT abdominal pelvis was negative and the patient was started on empiric oral vancomycin. On today's evaluation that is 09/19/2021, patient denies having any fever or any chills, the patient denies any further nausea vomiting and no diarrhea no chest pain shortness of breath or cough Objective - Vital Signs Vital signs: Vital Signs Temp 98.4 F 09/19/21 07:35 Pulse 71 09/19/21 07:35 Resp 18 09/19/21 07:35 BP 123/73 09/19/21 07:35 Pulse Ox 97 09/19/21 07:35 FiO2 Intake & Output 09/18/21 09/19/21 09/19/21 18:59 06:59 18:59 Intake Total 1210 Balance 1210 Intake: Intake, IV Titration 1210 Amount Lactated Ringers 1,000 ml 1210 @ 100 mls/hr IV .Q10H [facility] Rx#:[id number] Other: Voiding Method Bedside Commode # Voids 1 3 1 - Exam GENERAL DESCRIPTION: Elderly female lying in bed, no distress. No tachypnea or accessory muscle of respiration use. LUNGS: Unlabored breathing. Clear to auscultation anteriorly. No wheeze or crackle. HEART: S1, S2, regular rate and rhythm. No loud murmur ABDOMEN: Soft, no tenderness , guarding or rigidity, no organomegaly EXTREMITIES: No edema of feet. - Labs CBC & Chem 7: 09/21/21 10:04 09/21/21 10:04 Labs: Abnormal Lab Results - Last 24 Hours (Table) 09/19/21 09/19/21 09/19/21 Range/Units 05:34 05:34 05:34 RBC 3.61 L (4.10-5.20) X 10*6/uL Hgb 9.9 L (12.0-15.0) g/dL Hct 31.8 L (37.2-46.3) % MCHC 31.1 L (32.0-37.0) g/dL RDW 16.2 H (11.5-14.5) % Absolute Nucleated RBC 0.02 H (0.00-0.00) X 10*3/uL NRBC/100 WBC Diff 0.3 H (0.0-0.0) /100 WBCS Sodium 136 L (137-145) mmol/L Potassium 3.0 L (3.5-5.1) mmol/L Creatinine 1.89 H (0.52-1.04) mg/dL Glucose 62 L (74-99) mg/dL Calcium 7.6 L (8.4-10.2) mg/dL C-Reactive Protein 5.4 H (<1.0) mg/dL Total Protein 4.5 L (6.3-8.2) g/dL Albumin 2.2 L (3.5-5.0) g/dL Procalcitonin 0.11 H (0.02-0.09) ng/mL Microbiology - Last 24 Hours (Table) 09/17/21 15:36 Urine Culture - Preliminary Urine,Clean Catch Gram Neg Bacilli Assessment and Plan (1) Diarrhea Current Visit: Yes Status: Acute Code(s): R19.7 - DIARRHEA, UNSPECIFIED SNOMED Code(s): 82306682 (2) Urinary tract infection Current Visit: Yes Status: Acute Code(s): N39.0 - URINARY TRACT INFECTION, SITE NOT SPECIFIED SNOMED Code(s): 59294446 Plan: 1patient presented to hospital with acute nausea vomiting diarrhea unable to keep anything down and this patient did have a recent documented history of C. difficile colitis however last admission to this facility patient was unable to provide any stool sample as diarrhea resolved by the time she was in the hospital no patient with no fever no white count with no evidence of colitis on the CT clinically not behaving as active C. difficile colitis. 2we are waiting for the stool for C. difficile and stool cultures. 3May continue with oral vancomycin awaiting further work-up to be completed.
--- NOTE | 2021-09-21 14:53 | P.PN ---
Subjective Progress Note Date: 09/20/21 Principal diagnosis: diarrhea Patient is a 76-year female with a past medical history taken for recurrent UTI and C. difficile colitis presented to the hospital with Dreckman nausea vomiting and diarrhea concerning for a C. difficile CT abdominal pelvis was negative and the patient was started on empiric oral vancomycin. On today's evaluation that is 09/20/2021, , The patient remains to be afebrile, the patient complaining of some nausea but no vomiting no abdominal pain no diarrhea no chest pain no shortness of breath or cough patient was not able to provide a stool sample Objective - Vital Signs Vital signs: Vital Signs Temp 98.2 F 09/20/21 07:15 Pulse 59 L 09/20/21 07:15 Resp 16 09/20/21 07:15 BP 106/67 09/20/21 07:15 Pulse Ox 100 09/20/21 07:15 FiO2 Intake & Output 09/19/21 09/20/21 09/20/21 18:59 06:59 18:59 Intake Total 100 Balance 100 Intake: IV 100 Other: # Voids 1 1 # Bowel Movements 0 - Exam GENERAL DESCRIPTION: Elderly female lying in bed, no distress. No tachypnea or accessory muscle of respiration use. LUNGS: Unlabored breathing. Clear to auscultation anteriorly. No wheeze or crackle. HEART: S1, S2, regular rate and rhythm. No loud murmur ABDOMEN: Soft, no tenderness , guarding or rigidity, no organomegaly EXTREMITIES: No edema of feet. - Labs CBC & Chem 7: 09/21/21 10:04 09/21/21 10:04 Labs: Abnormal Lab Results - Last 24 Hours (Table) 09/20/21 Range/Units 04:05 Sodium 134 L (137-145) mmol/L Potassium 3.3 L (3.5-5.1) mmol/L Creatinine 1.75 H (0.52-1.04) mg/dL Glucose 67 L (74-99) mg/dL Calcium 7.5 L (8.4-10.2) mg/dL Microbiology - Last 24 Hours (Table) 09/17/21 15:36 Urine Culture - Final Urine,Clean Catch Escherichia coli Assessment and Plan (1) Diarrhea Current Visit: Yes Status: Acute Code(s): R19.7 - DIARRHEA, UNSPECIFIED SNOMED Code(s): 80352304 (2) Urinary tract infection Current Visit: Yes Status: Acute Code(s): N39.0 - URINARY TRACT INFECTION, SITE NOT SPECIFIED SNOMED Code(s): 15888161 Plan: 1patient presented to hospital with acute nausea vomiting diarrhea unable to keep anything down and this patient did have a recent documented history of C. difficile colitis however last admission to this facility patient was unable to provide any stool sample as diarrhea resolved by the time she was in the hosp ital no patient with no fever no white count with no evidence of colitis on the CT clinically not behaving as active C. difficile colitis, Patient was not able to provide any stool sample and did have resolution of diarrhea clinically not behaving as a C. difficile we will discontinue oral vancomycin. 2patient do have a positive UA and symptoms could be related to the UTI we will start the patient on Rocephin 1 g daily and monitor clinical course closely Time with Patient: Less than 30
[2021-09-21] MEDS ORDERED: Magnesium Replacement Protocol 1 EACH MISC MISCELLANE PRN (15:11)
--- NOTE | 2021-09-21 15:16 | P.PN ---
Subjective Progress Note Date: 09/21/21 This is a pleasant 76-year-old patient, follows with Dr. Brock hcandra. Chronic stable medical conditions include atrial fibrillation, hypertension, osteoarthritis, baseline uses a walker. Patient was discharged from hospital 2 weeks ago. 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 On that admission patient was seen by ID and Dr. Del Valle. Computed tomography scan was negative, white count was normal. Dificid was discontinued. Questran was used. Patient also was felt that asymptomatic bacteriuria. Patient now presents with worsening diarrhea. No fixed pattern. It may be okay for 3 days and comes back with a vengeance several bowel movements a day. No abdominal pain. No nausea vomiting. No fever no chills. Report appetite. Patient feels rather tired. Admitted for the same. Patient denies any urinary symptoms. Rather weak and tired. September 19: No diarrhea. No nausea vomiting. For endoscopy tomorrow. Clear liquid diet. September 20: Patient was seen this morning. Pending endoscopy. No nausea vomiting. No diarrhea. Later this after underwent EGD by Dr. Goss. Found to have diffuse gastritis. Put on Protonix. INVESTIGATIONS, reviewed in the clinical context: September 20: Potassium 3.3, creatinine 1.75 2-D echocardiogram: EF 55%. Moderate aortic regurgitation. Renal ultrasound: Unremarkable. Renal cyst. September 19: White count 6.8 hemoglobin 9.9 potassium 3 creatinine 1.89 albumin 2.2 White count 7.6 hemoglobin 11.8 platelets 352 potassium 2.9 BUN 19 creatinine 2.44 albumin 2.5 UA positive for protein 1+ leukoesterase WBC squamous epithelial cells 31 CT abdomen pelvis: No major abnormality. Fatty infiltration of the liver. EKG tracing personally reviewed by me: Atrial fibrillation, rate controlled Chest x-ray film personally reviewed by me-cardiomegaly Previous labs: Creatinine 1.94 [09/02/2021] 09/21/2021 Patient evaluated today on med surg tele unit. She has been evaluated by cardiology regarding moderate aortic regurg found on echocardiogram. Recommending to see her own phone technician Dr Malhotra on discharge. Also recommended to hold lasix for now as patient dose have decreased PO intake and continues with nausea and vomiting. She did vomit after breakfast today but says it was due to eating too fast. Eliquis will be resumed today cleared with GI services. She reports no further episodes of diarrhea. She continues on IV ceftriaxone for UTI with cultures showing E.Coli. Requesting PT evaluation for discharge planning, patient states she feels weak. Review of Systems Constitutional: Denied any fatigue denied any fever. Cardio vascular: denied any chest pain, palpitations Gastrointestinal: Reports nausea, emesis x 1 no blood reported, no diarrhea Pulmonary: Denied any shortness of breath cough Neurologic denied any new focal deficits. Reports weakness All inpatient medications were reviewed and appropriate changes in these medications as dictated in the interval history and assessment and plan. Physical Examination GENERAL: , laying in bed awake, comfortable EYES: Pupils equal. Conjunctiva normal. HEENT: External appearance of nose and ears normal, oral cavity grossly normal. NECK: JVD not raised; masses not palpable. HEART: First and second heart sounds are normal; no edema. LUNGS: Respiratory rate normal; clear to auscultation. ABDOMEN: Soft, nontender, liver spleen not palpable, no masses palpable. PSYCH: Alert and oriented x3; mood and affect normal. MUSCULOSKELETAL:No Clubbing/cyanosis;muscles-grossly intact. Evidence of OA Assessment and plan: -Recurrent intermittent severe diarrhea, possibly antibiotic associated diarrhea Patient is a repeated bouts of C. diff. Patient was here and discharged 2 weeks ago. Also with diarrhea. C. diff was negative. Computed tomography scan abdomen was unremarkable. Normal white count. Was seen by ID. Was treated with Questran. Now patient presents with worsening intermittent severe diarrhea. Normal white count again. CT scans unremarkable.: Improved with Metamucil. Today 09/21/2021 Patient denies diarrhea, does have nausea. -Antral gastritis on EGD Protonix -Persistent atrial fibrillation, rate controlled Coreg 6.25 mg twice a day. Eliquis 5 mg twice a day. -Primary osteoarthritis Tylenol as needed -Chronic gait dysfunction uses a walker at baseline Fall precautions PT/OT consultation -Severe hypokalemia Replace potassium, improved -Hypomagnesemia From poor oral intake will receive 3 grams of IV magnesium and repeat level tomorrow May need oral magnesium daily on discharge -Chronic kidney disease, suspect nephrosclerosis stage III Follow renal function. Renal ultrasound: Unremarkable - acute kidney injury, prerenal and also patient on diuretics, improving Hold Lasix. IV fluids. -Asymptomatic bacteriuria. Patient denies any urinary symptoms. No fever no white count. She does have nausea. Urine culture showing E.Coli patient is being followed by ID and recommended to continue IV ceftriaxone has received 2 doses. -Moderate aortic regurgitation Consult cardiology Recommending follow up outpatient with patients own phone technician, Dr Malhotra Patient is medically stable for discharge, oral intake improving. She does report diarrhea is resolved will continue questran for a short course on discharge. Replace electrolytes today and repeat levels tomorrow. Continue to hold lasix for now, may resume on discharge. Encourage increase in activity level, up in chairs for meals. Patient feels week she will need PT/OT evaluation prior to discharge, may need subacute rehab. Otherwise she will discharge in the next 24 hours on oral antibiotics. She has been resumed on eliquis today. Repeat labs in AM. The impression and plan of care has been dictated by Marianna Haro, Nurse Practitioner as directed. Dr. She MD I have performed a history and physical examination and medical decision making of this patient, discussed the same with the dictator, and agree with the dictators assessment and plan as written, documented as a scribe. Based on total visit time, I have performed more than 50% of this visit. Objective - Vital Signs Vital signs: Vital Signs Temp 98.4 F 09/21/21 13:31 Pulse 89 09/21/21 13:31 Resp 23 09/21/21 13:31 BP 131/77 09/21/21 13:31 Pulse Ox 98 09/21/21 13:31 FiO2 Intake & Output 09/20/21 09/21/21 09/21/21 18:59 06:59 18:59 Intake Total 100 Balance 100 Intake: IV 100 Other: Voiding Method Bedside Commode # Voids 1 1 - Labs CBC & Chem 7: 09/21/21 10:04 09/21/21 10:04 Labs: Abnormal Lab Results - Last 24 Hours (Table) 09/21/21 09/21/21 09/21/21 Range/Units 10:04 10:04 10:04 Hgb 10.8 L (11.4-16.0) gm/dL MCHC 29.4 L (31.0-37.0) g/dL RDW 16.1 H (11.5-15.5) % Sodium 136 L (137-145) mmol/L Chloride 109 H (98-107) mmol/L Carbon Dioxide 21 L (22-30) mmol/L Creatinine 1.46 H (0.52-1.04) mg/dL Calcium 7.6 L (8.4-10.2) mg/dL Magnesium 1.3 L (1.6-2.3) mg/dL Assessment and Plan Time with Patient: Less than 30
[2021-09-21] MEDS: MAGNESIUM SULFATE-D5W PMX 1 GM in DEXTROSE/WATER 1 100ML.BAG IVPB SCH ×3 (15:33→17:55)
--- NOTE | 2021-09-21 20:14 | P.PN ---
Subjective Progress Note Date: 09/21/21 Principal diagnosis: Nausea and vomiting This is a pleasant 76-year-old female who presented to the emergency department with complaints of intractable nausea and vomiting. Apparently the patient was diagnosed approximately a month ago with C. diff colitis and was treated initi ally with outpatient antibiotics with no improvement in her symptoms. She was then admitted to the hospital on 08/30/2021 through 09-22. Infectious disease was on consulted Dificid was added during that admission. However patient's diarrhea had improved in the never were able to get a stool sample. She's continued to have nausea and vomiting mostly vomiting after drinking and large amounts of water or with her pills. She states she doesn't feel that nauseated or upset stomach however when she takes in a large culpable water will come back up. She denies any hematemesis or coffee-ground emesis. She denies any blood in her stool or black stool. She has not had diarrhea for reportedly 4 days now. She is denying any abdominal pain. She had a CT of the abdomen and pelvis on admission that shows no acute findings. She denies any fevers or chills, no sick contacts. She states that she's had an EGD and colonoscopy very remote, she has a history of bowel resection. 09/19/2021: Patient seen and examined is a follow-up today for nausea vomiting. She states her nausea and vomiting has improved some. She remains on a clear liquid diet. She states she is still having trouble with keeping pills down. Denies any abdominal pain, no hematemesis. No acute changes through the night. Plan is for EGD tomorrow. 09/21/2021: Yesterday patient underwent EGD with finding of small hiatal hernia but no evidence of esophagitis. Diffuse gastritis. Continuing protonic twice daily. Patient states she is tolerating food better today no vomiting. Objective - Vital Signs Vital signs: Vital Signs Temp 97.6 F 09/21/21 09:06 Pulse 80 09/21/21 09:06 Resp 20 09/21/21 09:06 BP 101/60 09/21/21 09:06 Pulse Ox 98 09/21/21 09:06 FiO2 Intake & Output 09/20/21 09/21/21 09/21/21 18:59 06:59 18:59 Intake Total 100 Balance 100 Intake: IV 100 Other: Voiding Method Bedside Commode # Voids 1 1 - Exam General appearance: The patient is alert, oriented, appears in no acute distress. HET: Head is normocephalic and atraumatic. Conjunctiva pink. Sclera anicteric. Neck: Supple without lymphadenopathy. Abdomen: Soft, nontender, nondistended with bowel sounds. No guarding or rigidity. Extremities: Normal skin color and turgor. No pedal edema Skin: No rashes, no jaundice Neurological: No focal deficits. Alert and oriented x3. - Labs CBC & Chem 7: 09/21/21 10:04 09/21/21 10:04 Labs: Abnormal Lab Results - Last 24 Hours (Table) 09/21/21 09/21/21 Range/Units 10:04 10:04 Hgb 10.8 L (11.4-16.0) gm/dL MCHC 29.4 L (31.0-37.0) g/dL RDW 16.1 H (11.5-15.5) % Sodium 136 L (137-145) mmol/L Chloride 109 H (98-107) mmol/L Carbon Dioxide 21 L (22-30) mmol/L Creatinine 1.46 H (0.52-1.04) mg/dL Calcium 7.6 L (8.4-10.2) mg/dL Assessment and Plan (1) Nausea and vomiting Narrative/Plan: 76-year-old female who's had intermittent vomiting for the last 2 months duration. She was recently diagnosed with C. diff colitis a little over a month ago but continued to have nausea vomiting and some diarrhea. She was readmitted to the hospital however her diarrhea improved and she was seen by infectious disease. They did not believe that she had a relapse of her C. diff. She had been treated with vancomycin. She states that she has intermittent vomiting with certain liquids such as water as well as sometimes her pills. She states she does well with chicken broth and popsicles. She denies any history of ulcers, denies NSAID use, and no history of acid reflux. Unsure of etiology at this time, will proceed with EGD. Patient is on Ahlquist will discontinue Ahlquist and plan for EGD on Saturday. Patient is status post EGD with findings of small hiatal hernia no evidence of esophagitis. Diffuse gastritis. Continue with Protonix 40 mg twice daily. Advance diet as tolerated. Current Visit: Yes Status: Acute Code(s): R11.2 - NAUSEA WITH VOMITING, UNSPECIFIED SNOMED Code(s): 67174672 (2) Hypokalemia Current Visit: Yes Status: Acute Code(s): E87.6 - HYPOKALEMIA SNOMED Code(s): 44391895 (3) Hypomagnesemia Current Visit: Yes Status: Acute Code(s): E83.42 - HYPOMAGNESEMIA SNOMED Code(s): 116306322 (4) Acute renal failure Current Visit: No Status: Acute Code(s): N17.9 - ACUTE KIDNEY FAILURE, UNSPECIFIED SNOMED Code(s): 81804816 (5) History of Clostridioides difficile colitis Current Visit: No Status: Acute Code(s): Z86.19 - PERSONAL HISTORY OF OTHER INFECTIOUS AND PARASITIC DISEASES SNOMED Code(s): 843321404 Plan: 1. Continue symptomatic and supportive care 2. Continue antiemetics as ordered 3. May resume Eliquis 4. Regular diet Thank you for this consultation, she is cleared for discharge from gastroenterology. Dr. Braxton Mccallum I agree with the dictator's note, documented as a scribe by Any Hagen.
[2021-09-21] MEDS: APIXABAN 5 MG TAB PO SCH (21:31)
[2021-09-22] MEDS: LACTATED RINGERS 1,000 ML IV SCH (01:59)
[2021-09-22] MEDS: ACETAMINOPHEN TAB 325 MG TAB PO PRN (01:59)
[2021-09-22] MEDS: HYDROcodone/APAP 10-325MG 1 EACH TAB PO PRN (05:59)
[2021-09-22 07:55] LABS: African American GFR (CKD) 42 (>60 ml/min/1.73 sqM); Anion Gap 5 mmol/L; Blood Urea Nitrogen 9 mg/dL (7-17); Calcium 7.7 mg/dL (8.4-10.2); Carbon Dioxide 24 mmol/L (22-30); Chloride 107 mmol/L (98-107); Glucose 79 mg/dL (74-99); Non-African American GFR(CKD) 36 (>60 ml/min/1.73 sqM); Potassium 3.8 mmol/L (3.5-5.1); Sodium 136 mmol/L (137-145)
[2021-09-22 07:59] VITALS: PULSE 76; RESP 16
[2021-09-22] MEDS: carvediloL 6.25 MG TAB PO SCH (08:22)
[2021-09-22] MEDS: allopurinoL 100 MG TAB PO SCH (08:22)
[2021-09-22] MEDS: APIXABAN 5 MG TAB PO SCH (08:22)
[2021-09-22] MEDS: POTASSIUM CHLORIDE ER 20 MEQ TAB.ER PO SCH (08:22)
[2021-09-22] MEDS: PANTOPRAZOLE 40 MG TABLET PO SCH (08:22)
--- NOTE | 2021-09-22 12:21 | P.PN ---
Subjective This is a pleasant 76-year-old female past medical history significant for coronary artery disease status post PCI to LAD years ago per patient, hype rtension, persistent atrial fibrillation on Eliquis, recent diagnosis of C. diff, former nicotine dependence, chronic kidney disease. She follows with Dr. Feng. We have been asked to see in consultation for aortic regurgitation. Patient initially presented to the ER on 09/06/2021 with complaints of generalized weakness, nausea, vomiting, diarrhea, decreased by mouth intake, some dark stools. She was recently admitted on for similar symptoms and was diagnosed with C. diff colitis. She denies any chest pain, shortness of breath. Does endorse some LE edema. She is overall feeling slightly better, she did have some nausea and vomiting this morning. she just started eating and drinking more yesterday. She underwent EGD yesterday that revealed small hiatal hernia but no evidence of esophagitis, diffuse gastritis. DIAGNOSTICS * Echocardiogram revealed an EF 55%, severely dilated left atrium, mild mitral regurgitation, mild to moderate aortic regurgitation 09/22/2021 Patient seen and examined at bedside, no acute distress. She continues to have decreased by mouth intake. Denies any nausea, vomiting, diarrhea. She denies any dark or black stools. Vital signs are stable. Eliquis's been restarted PHYSICAL EXAMINATION Blood pressure 115/54, heart rate 76, afebrile, oxygen saturations 98% on room air CONSTITUTIONAL: No apparent distress. HEENT: Neck Supple. No JVD. No carotid bruit. CHEST EXAMINATION: Lungs are clear to auscultation. No chest wall tenderness is noted on palpation or with deep breathing. HEART EXAMINATION: Irregular rate and rhythm. S1, S2 heard. ABDOMEN: Soft, nontender. Positive bowel sounds. EXTREMITIES: 2+ peripheral pulses, 2+ bilateral lower extremity edema and no calf tenderness. NEUROLOGIC EXAMINATION: Patient is awake, alert and oriented x3. ASSESSMENT Mild to moderate aortic regurgitation Abdominal pain, nausea, vomiting, diarrhea Reports of dark stools C. diff Gastritis reported on EGD Hypotension Hypokalemia Coronary artery disease status post PCI to LAD years ago per patient History of hypertension Persistent atrial fibrillation on Eliquis Former nicotine dependence Chronic kidney disease PLAN Eliquis restarted Encourage PO intake Increase activity as tolerated Recommend restarting Lasix when patient able to tolerate diet Mild to moderate aortic regurgitation on echocardiogram, no acute inpatient evaluation needed at this time, this can be monitored as an outpatient with patient's primary furniture finisher Dr. Feng We will follow patient as needed. Please reconsult if needed. Patient follow up outpatient with her primary furniture finisher Dr. Phillips Nurse practitioner note has been reviewed by physician. Signing provider agrees with the documented findings, assessment, and plan of care. Objective - Vital Signs Vital signs: Vital Signs Temp 97.6 F 09/22/21 07:58 Pulse 76 09/22/21 08:23 Resp 16 09/22/21 08:23 BP 115/54 09/22/21 07:58 Pulse Ox 98 09/22/21 07:58 FiO2 Intake & Output 09/21/21 09/22/21 09/22/21 18:59 06:59 18:59 Output Total 600 Balance -600 Output: Urine 600 Other: Voiding Method Bedside Commode Bedside Commode # Voids 1 1 - Labs CBC & Chem 7: 09/21/21 10:04 09/22/21 07:22 Labs: Abnormal Lab Results - Last 24 Hours (Table) 09/21/21 09/22/21 Range/Units 10:04 07:22 Sodium 136 L (137-145) mmol/L Creatinine 1.41 H (0.52-1.04) mg/dL Calcium 7.7 L (8.4-10.2) mg/dL Magnesium 1.3 L (1.6-2.3) mg/dL
[2021-09-22 14:02] VITALS: BMI 36.9
[2021-09-22 14:09] VITALS: BP 101/53; TEMP 97.7
--- NOTE | 2021-09-24 14:02 | P.DS ---
Providers Date of admission: 09/17/21 18:52 Expected date of discharge: 09/22/21 Attending physician: Paul Eric Consults: 09/18/21 14:08 Consult Physician Routine Consulting Provider: Laya Russell Consult Reason/Comments: Recurrent diarrhea history of C. diff Do you want consulting provider notified?: Yes 09/20/21 20:42 Consult Physician Routine Consulting Provider: Regan Aparicio Consult Reason/Comments: Aortic regurgitation Do you want consulting provider notified?: Yes Primary care physician: Brock Chandra [facility] Course: 76-year-old patient, follows with Dr. Brock chandra. Chronic stable medical conditions include atrial fibrillation, hypertension, osteoarthritis, baseline uses a walker. Patient was discharged from hospital 2 weeks ago. 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 On that admission patient was seen by ID and Dr. Del Valle. Computed tomography scan was negative, white count was normal. Dificid was discontinued. Questran was used. Patient also was felt that asymptomatic bacteriuria. Patient now presents with worsening diarrhea. No fixed pattern. It may be okay for 3 days and comes back with a vengeance several bowel movements a day. No abdominal pain. No nausea vomiting. No fever no chills. Report appetite. Patient feels rather tired. Admitted for the same. Patient denies any urinary symptoms. Rather weak and tired. September 19: No diarrhea. No nausea vomiting. For endoscopy tomorrow. Clear liquid diet. September 20: Patient was seen this morning. Pending endoscopy. No nausea vomiting. No diarrhea. Later this after underwent EGD by Dr. Goss. Found to have diffuse gastritis. Put on Protonix. INVESTIGATIONS, reviewed in the clinical context: September 20: Potassium 3.3, creatinine 1.75 2-D echocardiogram: EF 55%. Moderate aortic regurgitation. Renal ultrasound: Unremarkable. Renal cyst. September 19: White count 6.8 hemoglobin 9.9 potassium 3 creatinine 1.89 albumin 2.2 White count 7.6 hemoglobin 11.8 platelets 352 potassium 2.9 BUN 19 creatinine 2.44 albumin 2.5 UA positive for protein 1+ leukoesterase WBC squamous epithelial cells 31 CT abdomen pelvis: No major abnormality. Fatty infiltration of the liver. EKG tracing personally reviewed by me: Atrial fibrillation, rate controlled Chest x-ray film personally reviewed by me-cardiomegaly Previous labs: Creatinine 1.94 [09/02/2021] 09/21/2021 Patient evaluated today on med surg tele unit. She has been evaluated by cardiology regarding moderate aortic regurg found on echocardiogram. Recommending to see her own hydraulic spinner Dr Malhotra on discharge. Also recommended to hold lasix for now as patient dose have decreased PO intake and continues with nausea and vomiting. She did vomit after breakfast today but says it was due to eating too fast. Eliquis will be resumed today cleared with GI services. She reports no further episodes of diarrhea. She continues on IV ceftriaxone for UTI with cultures showing E.Coli. Requesting PT evaluation for discharge planning, patient states she feels weak. Review of Systems Constitutional: Denied any fatigue denied any fever. Cardio vascular: denied any chest pain, palpitations Gastrointestinal: Reports nausea, emesis x 1 no blood reported, no diarrhea Pulmonary: Denied any shortness of breath cough Neurologic denied any new focal deficits. Reports weakness All inpatient medications were reviewed and appropriate changes in these medications as dictated in the interval history and assessment and plan. Physical Examination GENERAL: , laying in bed awake, comfortable EYES: Pupils equal. Conjunctiva normal. HEENT: External appearance of nose and ears normal, oral cavity grossly normal. NECK: JVD not raised; masses not palpable. HEART: First and second heart sounds are normal; no edema. LUNGS: Respiratory rate normal; clear to auscultation. ABDOMEN: Soft, nontender, liver spleen not palpable, no masses palpable. PSYCH: Alert and oriented x3; mood and affect normal. MUSCULOSKELETAL:No Clubbing/cyanosis;muscles-grossly intact. Evidence of OA Assessment and plan: -Recurrent intermittent severe diarrhea, possibly antibiotic associated diarrhea Patient is a repeated bouts of C. diff. Patient was here and discharged 2 weeks ago. Also with diarrhea. C. diff was negative. Computed tomography scan abdomen was unremarkable. Normal white count. Was seen by ID. Was treated w esthela Mcgovern. Now patient presents with worsening intermittent severe diarrhea. Normal white count again. CT scans unremarkable.: Improved with Metamucil. Today 09/21/2021 Patient denies diarrhea, does have nausea. -Antral gastritis on EGD Protonix -Persistent atrial fibrillation, rate controlled Coreg 6.25 mg twice a day. Eliquis 5 mg twice a day. -Primary osteoarthritis Tylenol as needed -Chronic gait dysfunction uses a walker at baseline Fall precautions PT/OT consultation -Severe hypokalemia Replace potassium, improved -Hypomagnesemia From poor oral intake will receive 3 grams of IV magnesium and repeat level tomorrow May need oral magnesium daily on discharge -Chronic kidney disease, suspect nephrosclerosis stage III Follow renal function. Renal ultrasound: Unremarkable - acute kidney injury, prerenal and also patient on diuretics, improving Hold Lasix. IV fluids. -Asymptomatic bacteriuria. Patient denies any urinary symptoms. No fever no white count. She does have nausea. Urine culture showing E.Coli patient is being followed by ID and recommended to continue IV ceftriaxone has received 2 doses. -Moderate aortic regurgitation Consult cardiology Recommending follow up outpatient with patients own hydraulic spinner, Dr Malhotra Patient is medically stable for discharge, oral intake improving. She does report diarrhea is resolved will continue questran for a short course on discharge. Replace electrolytes today and repeat levels tomorrow. Continue to hold lasix for now, may resume on discharge. Encourage increase in activity level, up in chairs for meals. Patient feels week she will need PT/OT evaluation prior to discharge, may need subacute rehab. Otherwise she will discharge in the next 24 hours on oral antibiotics. She has been resumed on eliquis today. Repeat labs in AM. 09/22/2021; patient is cleared for discharge Patient Condition at Discharge: Fair Plan - Discharge Summary Discharge Rx Participant: No New Discharge Prescriptions: New Cephalexin [Keflex] 500 mg PO Q8HR 1 Days #21 cap Continue allopurinoL [Zyloprim] 100 mg PO DAILY Diphenox-Atrop 2.5-0.025 mg [Lomotil] 1 tab PO QID Pantoprazole Sodium [Protonix] 40 mg PO DAILY #30 tab Acetaminophen Tab [Tylenol] 650 mg PO Q6HR PRN tab PRN Reason: Mild Pain Or Fever > 100.5 Prochlorperazine [Compazine] 10 mg PO Q8H PRN PRN Reason: Nausea HYDROcodone/APAP 10-325MG [[place] 10-325] 1 tab PO Q8H PRN PRN Reason: Pain carvediloL [Coreg] 6.25 mg PO BID Furosemide [Lasix] 40 mg PO BID Apixaban [Eliquis] 5 mg PO BID ondansetron HCL [Zofran] 8 mg PO Q8H PRN #30 tab PRN Reason: Nausea Potassium Chloride [K-Tab ER] 20 meq PO DAILY 30 Days #30 tab Discharge Medication List Apixaban [Eliquis] 5 mg PO BID 08/30/21 [History] Diphenox-Atrop 2.5-0.025 mg [Lomotil] 1 tab PO QID 08/30/21 [History] Furosemide [Lasix] 40 mg PO BID 08/30/21 [History] HYDROcodone/APAP 10-325MG [[place] 10-325] 1 tab PO Q8H PRN 08/30/21 [History] allopurinoL [Zyloprim] 100 mg PO DAILY 08/30/21 [History] carvediloL [Coreg] 6.25 mg PO BID 08/30/21 [History] Acetaminophen Tab [Tylenol] 650 mg PO Q6HR PRN tab 09/02/21 [Rx] Pantoprazole Sodium [Protonix] 40 mg PO DAILY #30 tab 09/02/21 [Rx] Potassium Chloride [K-Tab ER] 20 meq PO DAILY 30 Days #30 tab 09/02/21 [Rx] ondansetron HCL [Zofran] 8 mg PO Q8H PRN #30 tab 09/02/21 [Rx] Prochlorperazine [Compazine] 10 mg PO Q8H PRN 09/17/21 [History] Cephalexin [Keflex] 500 mg PO Q8HR 1 Days #21 cap 09/22/21 [Rx] Follow up Appointment(s)/Referral(s): [facility], [NON-STAFF] - 1 Week Jaimie Feng MD [REFERRING] - 1 Week (office closed at this time patient to call and make appoitnment after D/C) Brock Chandra MD [Primary Care Provider] - 1-2 days (office closed at this time patient to call and make appoitnment after D/C) Patient Instructions/Handouts: Urinary Tract Infection in Women (DC), Hypomagnesemia (DC) Discharge Disposition: HOME WITH HOME HEALTH SERVICES
== END 2021-09-22 15:47 | disposition home health service (06) | DRG 690 ==
LOC: EC 14:40 → 5NMEDONC 18:52 → 6NMEDSUR 20:28 → 4SSUR 09-21 08:42
PROVIDERS: ADMIT Hospitalist; ATTEND Hospitalist
PROC: 0DB78ZX Excision of Stomach, Pylorus, Via Natural or Artificial Opening Endoscopic, Diagnostic (ICD-10-PCS; principal; 2021-09-20 12:10)
DX: N39.0 Urinary tract infection, site not specified (principal); I48.19 Other persistent atrial fibrillation; N17.9 Acute kidney failure, unspecified; N18.30 Chronic kidney disease, stage 3 unspecified; I12.9 Hypertensive chronic kidney disease with stage 1 through stage 4 chronic kidney disease, or unspecified chronic kidney disease; B96.20 Unspecified Escherichia coli [E. coli] as the cause of diseases classified elsewhere; M19.91 Primary osteoarthritis, unspecified site; E87.6 Hypokalemia; K29.70 Gastritis, unspecified, without bleeding; E83.42 Hypomagnesemia; R19.7 Diarrhea, unspecified; R26.9 Unspecified abnormalities of gait and mobility; E83.51 Hypocalcemia; F41.9 Anxiety disorder, unspecified; G47.00 Insomnia, unspecified; I25.10 Atherosclerotic heart disease of native coronary artery without angina pectoris; K44.9 Diaphragmatic hernia without obstruction or gangrene; I08.2 Rheumatic disorders of both aortic and tricuspid valves; K59.00 Constipation, unspecified; K76.0 Fatty (change of) liver, not elsewhere classified; M10.9 Gout, unspecified; N28.1 Cyst of kidney, acquired; Z87.891 Personal history of nicotine dependence; Z79.899 Other long term (current) drug therapy; Z79.01 Long term (current) use of anticoagulants; Z87.440 Personal history of urinary (tract) infections; Z90.49 Acquired absence of other specified parts of digestive tract; Z90.710 Acquired absence of both cervix and uterus; Z98.61 Coronary angioplasty status; Z88.1 Allergy status to other antibiotic agents; Z88.0 Allergy status to penicillin; Z88.2 Allergy status to sulfonamides; Z87.19 Personal history of other diseases of the digestive system; Z91.018 Allergy to other foods; Z91.040 Latex allergy status
CPT/HCPCS: 36415; 43239; 71046; 74176; 76770; 80048; 80053; 81001; 82330; 83690; 83735; 84100; 84145; 85025; 86140; 87077; 87086; 87186; 88305; 93306; 96361; 96365; 96366; 96367; 96368; 96375; 99285

== ENCOUNTER 2021-10-06 11:30 | Inpatient (IN) | payer MEDICARE ==
[2021-10-06] MEDS ORDERED: SODIUM CHLORIDE 0.9% 1,000 ML IV STA (11:35)
[2021-10-06] MEDS ORDERED: ONDANSETRON 4 MG/2 ML VIAL IVP STA (11:35)
--- NOTE | 2021-10-06 11:38 | ED ---
General Adult HPI - General Stated complaint: Nausea and Vomiting Time Seen by Provider: 10/06/21 11:30 Source: patient, RN notes reviewed, old records reviewed - History of Present Illness Initial comments: This is a 76-year-old female who comes in with past medical history significant for two-week history of vomiting. Patient also has a little bit of diarrhea. Patient states in the past she has had C. difficile. Patient states she has diffuse abdominal pain. Patient denies any fever chills. Patient denies any dysuria hematuria urinary frequency. Patient denies any chest pain shortness of breath or difficulty breathing. Patient denies any lightheadedness or dizziness. Patient is been seen for this multiple times in the emergency department as well as by her primary medical care doctor. - Related Data Home Medications Medication Instructions Recorded Confirmed Apixaban [Eliquis] 5 mg PO BID 08/30/21 09/17/21 Diphenox-Atrop 2.5-0.025 mg 1 tab PO QID 08/30/21 09/17/21 [Lomotil] Furosemide [Lasix] 40 mg PO BID 08/30/21 09/17/21 HYDROcodone/APAP 10-325MG [[place] 1 tab PO Q8H PRN 08/30/21 09/17/21 10-325] allopurinoL [Zyloprim] 100 mg PO DAILY 08/30/21 09/17/21 carvediloL [Coreg] 6.25 mg PO BID 08/30/21 09/17/21 Prochlorperazine [Compazine] 10 mg PO Q8H PRN 09/17/21 09/17/21 Previous Rx's Medication Instructions Recorded Acetaminophen Tab [Tylenol] 650 mg PO Q6HR PRN tab 09/02/21 Pantoprazole Sodium [Protonix] 40 mg PO DAILY #30 tab 09/02/21 Potassium Chloride [K-Tab ER] 20 meq PO DAILY 30 Days #30 tab 09/02/21 ondansetron HCL [Zofran] 8 mg PO Q8H PRN #30 tab 09/02/21 Cephalexin [Keflex] 500 mg PO Q8HR 1 Days #21 cap 09/22/21 Allergies Allergy/AdvReac Type Severity Reaction Status Date / Time clindamycin Allergy Unknown Verified 10/06/21 11:42 latex Allergy Unknown Verified 10/06/21 11:42 Penicillins Allergy Rash/Hives Verified 10/06/21 11:42 bhavya Allergy Unknown Verified 10/06/21 11:42 Sulfa (Sulfonamide Allergy Unknown Verified 10/06/21 11:42 Antibiotics) Review of Systems ROS Statement: Those systems with pertinent positive or pertinent negative responses have been documented in the HPI. ROS Other: All systems not noted in ROS Statement are negative. Past Medical History Past Medical History: Atrial Fibrillation, Hypertension Additional Past Medical History / Comment(s): heart problems (leaking valves), c-diff, gout History of Any Multi-Drug Resistant Organisms: C-DIFF Date of last positivie culture/infection: july 2021 MDRO Source:: stool Past Surgical History: Hysterectomy, Orthopedic Surgery Additional Past Surgical History / Comment(s): right shoulder, BL knee, right ankle, right great toe, bowel surgery, jaw surgery, right ear Past Psychological History: No Psychological Hx Reported Smoking Status: Former smoker Past Alcohol Use History: None Reported Past Drug Use History: None Reported General Exam - General Exam Comments Initial Comments: GENERAL: Patient is well-developed and well-nourished. Patient is nontoxic and well- hydrated and is in mild distress. ENT: Neck is soft and supple. No significant lymphadenopathy is noted. Oropharynx is clear. Moist mucous membranes. Neck has full range of motion without eliciting any pain. EYES: The sclera were anicteric and conjunctiva were pink and moist. Extraocular movements were intact and pupils were equal round and reactive to light. Eyelids were unremarkable. PULMONARY: Unlabored respirations. Good breath sounds bilaterally. No audible rales rhonchi or wheezing was noted. CARDIOVASCULAR: There is a regular rate and rhythm without any murmurs gallops or rubs. ABDOMEN: Soft and nontender with normal bowel sounds. I could find no area of tenderness on examination. SKIN: Skin is clear with no lesions or rashes and otherwise unremarkable. NEUROLOGIC: Patient is alert and oriented x3. Cranial nerves II through XII are grossly intact. Motor and sensory are also intact. Normal speech, volume and content. Symmetrical smile. MUSCULOSKELETAL: Normal extremities with adequate strength and full range of motion. No lower extremity swelling or edema. No calf tenderness. LYMPHATICS: No significant lymphadenopathy is noted PSYCHIATRIC: Normal psychiatric evaluation. Course Vital Signs 10/06/21 10/06/21 11:37 13:18 Temperature 98 F Pulse Rate 87 89 Respiratory 17 16 Rate Blood Pressure 145/89 134/87 O2 Sat by Pulse 97 99 Oximetry Medical Decision Making - Medical Decision Making Patient has intractable vomiting K keep any water or food down. Family does not want take the patient home because they cannot get anything to stay down the patient daughter and would like to have someone talk to them possibly about a PEG tube. - Lab Data Result diagrams: 10/06/21 11:54 10/06/21 11:54 Lab Results 10/06/21 10/06/21 10/06/21 Range/Units 11:54 11:54 11:54 WBC 7.1 (3.8-10.6) k/uL RBC 3.59 L (3.80-5.40) m/uL Hgb 10.6 L (11.4-16.0) gm/dL Hct 33.4 L (34.0-46.0) % MCV 93.1 (80.0-100.0) fL MCH 29.4 (25.0-35.0) pg MCHC 31.6 (31.0-37.0) g/dL RDW 17.7 H (11.5-15.5) % Plt Count 292 (150-450) k/uL MPV 8.8 Neutrophils % 61 % Lymphocytes % 27 % Monocytes % 8 % Eosinophils % 2 % Basophils % 1 % Neutrophils # 4.3 (1.3-7.7) k/uL Lymphocytes # 1.9 (1.0-4.8) k/uL Monocytes # 0.6 (0-1.0) k/uL Eosinophils # 0.2 (0-0.7) k/uL Basophils # 0.0 (0-0.2) k/uL Hypochromasia Slight Anisocytosis Slight Sodium 138 (137-145) mmol/L Potassium 3.3 L (3.5-5.1) mmol/L Chloride 106 (98-107) mmol/L Carbon Dioxide 26 (22-30) mmol/L Anion Gap 6 mmol/L BUN 13 (7-17) mg/dL Creatinine 1.84 H (0.52-1.04) mg/dL Est GFR (CKD-EPI)AfAm 30 (>60 ml/min/1.73 sqM) Est GFR (CKD-EPI)NonAf 26 (>60 ml/min/1.73 sqM) Glucose 79 (74-99) mg/dL Plasma Lactic Acid Shahab 1.2 (0.7-2.0) mmol/L Calcium 7.5 L (8.4-10.2) mg/dL Total Bilirubin 0.8 (0.2-1.3) mg/dL AST 26 (14-36) U/L ALT 8 (4-34) U/L Alkaline Phosphatase 102 (38-126) U/L Total Protein 4.8 L (6.3-8.2) g/dL Albumin 2.3 L (3.5-5.0) g/dL Amylase <30 L (30-110) U/L Lipase 115 (23-300) U/L Disposition Clinical Impression: Intractable vomiting, Dehydration Disposition: ADMITTED IP TO THIS HOSP Referrals: Brock Holguin MD [Primary Care Provider] - 1-2 days Time of Disposition: 14:12
[2021-10-06 12:25] LABS: Anisocytosis Slight; Basophils % (A) 1 %; Eosinophils # (A) 0.2 k/uL (0-0.7); Eosinophils % (A) 2 %; HCT 33.4 % (34.0-46.0); HGB 10.6 gm/dL (11.4-16.0); Hypochromasia Slight; Lymphocytes # (A) 1.9 k/uL (1.0-4.8); Lymphocytes % (A) 27 %; MCH 29.4 pg (25.0-35.0); MCHC 31.6 g/dL (31.0-37.0); MCV 93.1 fL (80.0-100.0); Mean Platelet Volume 8.8; Monocytes # (A) 0.6 k/uL (0-1.0); Monocytes % (A) 8 %; Neutrophils # (A) 4.3 k/uL (1.3-7.7); Neutrophils % (A) 61 %; Platelet Count 292 k/uL (150-450); RBC 3.59 m/uL (3.80-5.40); RDW 17.7 % (11.5-15.5); WBC 7.1 k/uL (3.8-10.6)
[2021-10-06] MEDS ORDERED: LORazepam 2 MG/ML INJ IV STA (12:37)
[2021-10-06 12:45] LABS: ALT 8 U/L (4-34); AST 26 U/L (14-36); African American GFR (CKD) 30 (>60 ml/min/1.73 sqM); Albumin 2.3 g/dL (3.5-5.0); Alkaline Phosphatase 102 U/L (38-126); Amylase <30 U/L (30-110); Anion Gap 6 mmol/L; Blood Urea Nitrogen 13 mg/dL (7-17); Calcium 7.5 mg/dL (8.4-10.2); Carbon Dioxide 26 mmol/L (22-30); Chloride 106 mmol/L (98-107); Glucose 79 mg/dL (74-99); Lipase 115 U/L (23-300); Non-African American GFR(CKD) 26 (>60 ml/min/1.73 sqM); Potassium 3.3 mmol/L (3.5-5.1); Sodium 138 mmol/L (137-145); Total Bilirubin 0.8 mg/dL (0.2-1.3); Total Protein 4.8 g/dL (6.3-8.2)
[2021-10-06] MEDS ORDERED: SODIUM CHLORIDE 0.9% 1,000 ML IV ONE (14:14)
[2021-10-06] MEDS ORDERED: METOCLOPRAMIDE 5 MG/ML 2 ML VIAL IVP PRN (14:16)
[2021-10-06] MEDS ORDERED: HYDROcodone/APAP 10-325MG 1 EACH TAB PO PRN (17:38)
[2021-10-06] MEDS ORDERED: ONDANSETRON 4 MG/2 ML VIAL IVP PRN (17:44)
[2021-10-06] MEDS ORDERED: POTASSIUM CHLORIDE 20 MEQ in WATER FOR INJECTION 1 100ML.BAG IVPB STA (17:51)
--- NOTE | 2021-10-06 17:51 | P.HPIM ---
History of Present Illness H&P Date: 10/06/21 Chief Complaint: N/V Patient is a 76 year old female with PMH of atrial fibrillation, hypertension, gout, depression, GERD and C. diff that was diagnosed 2-3 months ago and treated presents to the ED for intractable nausea and vomiting. Patient reports intractable nausea and vomiting this pain ongoing for the past month. She is unable to hold down any fluids or food. She reports no dysphagia. She denies any abdominal pain. EGD was done on September 20 which showed small hiatal hernia, diffuse gastritis. Patient presented to the ED for non improvement of symptoms. She denies any headache, lower shimmer edema, fever chills, cough, chest pain, shortness of breath, palpitations, changes in urination or bowel habits. No changes in weight. She reports a decreased appetite. She denies any numbness/weakness/tingling of the extremities. In the ED, vital signs are st able. CBC showed hemoglobin of 10.6. CMP showed potassium of 3.3, creatinine 1.84, calcium of 7.5. Amylase and lipase negative. Patient is admitted for intractable nausea and vomiting. Review of systems is performed and is negative except above. General: [non toxic], [no distress], [appears at stated age] Derm: [warm], [dry] Head: [atraumatic], [normocephalic], [symmetric] Eyes: [EOMI], [no lid lag], [anicteric sclera] Mouth: [no lip lesion], [mucus membranes moist] Cardiovascular: [S1S2 reg], [no murmur], [positive posterior tibial pulse bilateral], Lungs: [CTA bilateral], [no rhonchi, no rales] , [no accessory muscle use] Abdominal: [soft], [ nontender to palpation], [no guarding], [no appreciable organomegaly] Ext: [no gross muscle atrophy], [no edema], [no contractures] Neuro: [no focal neuro deficits] Psych: [Alert], [oriented], [appropriate affect] #Intractable nausea and vomiting likely related to gastritis #Normocytic anemia #Hypokalemia #Acute kidney injury #History of C. diff Chronic conditions: Atrial fibrillation, hypertension, gout, depression Patient presents with intractable nausea and vomiting likely related to gastritis as seen on EGD done on 09/20/2021. Her abdominal exam is benign. She'll be started on Protonix 40 mg IV daily. Zofran and Reglan as needed for nausea and vomiting. Gastric emptying study will be ordered. Start full liquid diet and advance as tolerated. Her hemoglobin is stable and will be monitored for now. Transfuse if hemoglobin less than 7. Potassium will be replaced and BMP will be repeated tomorrow morning. Start normal sinus 75 mL per hour. Avoid nephrotoxins. Repeat BMP tomorrow morning. Completed treatment for c.diff. Restart Coreg for history of hypertension. Eliquis for anticoagulation. Lexapro for depression. DVT prophylaxis: [Eliquis] Discussed with: [Patient and ] Anticipated discharge: [1-2 days] Anticipated discharge place: [Home] A total of [30] minutes was spent on the care of this complex patient more than 50% of the time was spent in counseling and care coordination. Patient names her decision maker if she can't make decisions for herself. Patient would like to be full code. Past Medical History Past Medical History: Atrial Fibrillation, Hypertension Additional Past Medical History / Comment(s): heart problems (leaking valves), c-diff, gout History of Any Multi-Drug Resistant Organisms: C-DIFF Date of last positivie culture/infection: july 2021 MDRO Source:: stool Past Surgical History: Hysterectomy, Orthopedic Surgery Additional Past Surgical History / Comment(s): right shoulder, BL knee, right ankle, right great toe, bowel surgery, jaw surgery, right ear Past Psychological History: No Psychological Hx Reported Smoking Status: Former smoker Past Alcohol Use History: None Reported Past Drug Use History: None Reported Medications and Allergies Home Medications Medication Instructions Recorded Confirmed Type Apixaban [Eliquis] 5 mg PO BID 08/30/21 10/06/21 History Diphenox-Atrop 2.5-0.025 mg 1 tab PO QID PRN 08/30/21 10/06/21 History [Lomotil] Furosemide [Lasix] 40 mg PO BID 08/30/21 10/06/21 History HYDROcodone/APAP 10-325MG [[place] 1 tab PO Q8H PRN 08/30/21 10/06/21 History 10-325] allopurinoL [Zyloprim] 100 mg PO DAILY 08/30/21 10/06/21 History carvediloL [Coreg] 6.25 mg PO BID 08/30/21 10/06/21 History Acetaminophen Tab [Tylenol] 650 mg PO Q6HR PRN tab 09/02/21 10/06/21 Rx Pantoprazole Sodium [Protonix] 40 mg PO DAILY #30 tab 09/02/21 10/06/21 Rx Potassium Chloride [K-Tab ER] 20 meq PO DAILY 30 Days #30 tab 09/02/21 10/06/21 Rx ondansetron HCL [Zofran] 8 mg PO Q8H PRN #30 tab 09/02/21 10/06/21 Rx Prochlorperazine [Compazine] 10 mg PO Q8H PRN 09/17/21 10/06/21 History Escitalopram [Lexapro] 10 mg PO DAILY 10/06/21 10/06/21 History Nystatin/Triamcin 1 applic TOPICAL BID 10/06/21 10/06/21 History [Nystatin-Triamcinolone Cream] busPIRone HCl [Buspar] 5 mg PO BID 10/06/21 10/06/21 History Allergies Allergy/AdvReac Type Severity Reaction Status Date / Time clindamycin Allergy Unknown Verified 10/06/21 16:29 latex Allergy Unknown Verified 10/06/21 16:29 Penicillins Allergy Rash/Hives Verified 10/06/21 16:29 bhavya Allergy Unknown Verified 10/06/21 16:29 Sulfa (Sulfonamide Allergy Unknown Verified 10/06/21 16:29 Antibiotics) Physical Exam Vitals: Vital Signs Temp Pulse Pulse Resp BP BP Pulse Ox 10/06/21 16:39 98.1 F 90 17 142/71 99 10/06/21 16:23 88 16 151/94 99 10/06/21 13:18 89 16 134/87 99 10/06/21 11:37 98 F 87 17 145/89 97 Intake and Output 10/06/21 10/06/21 10/06/21 06:59 14:59 22:59 Other: Weight 97.522 kg Results CBC & Chem 7: 10/06/21 11:54 10/06/21 11:54 Labs: Abnormal Lab Results - Last 24 Hours (Table) 10/06/21 10/06/21 Range/Units 11:54 11:54 RBC 3.59 L (3.80-5.40) m/uL Hgb 10.6 L (11.4-16.0) gm/dL Hct 33.4 L (34.0-46.0) % RDW 17.7 H (11.5-15.5) % Potassium 3.3 L (3.5-5.1) mmol/L Creatinine 1.84 H (0.52-1.04) mg/dL Calcium 7.5 L (8.4-10.2) mg/dL Total Protein 4.8 L (6.3-8.2) g/dL Albumin 2.3 L (3.5-5.0) g/dL Amylase <30 L (30-110) U/L
[2021-10-06] MEDS: FUROSEMIDE 40 MG TAB PO SCH (19:45)
[2021-10-06] MEDS: carvediloL 6.25 MG TAB PO SCH (19:45)
[2021-10-06] MEDS: PANTOPRAZOLE 40 MG/10 ML VIAL IVP SCH (19:45)
[2021-10-06] MEDS: busPIRone HCl 5 MG TAB PO SCH (20:40)
[2021-10-06] MEDS: APIXABAN 5 MG TAB PO SCH (20:40)
[2021-10-07] MEDS ORDERED: PANTOPRAZOLE 40 MG TABLET PO SCH (07:30)
[2021-10-07] MEDS: carvediloL 6.25 MG TAB PO SCH ×2 (08:45→17:17)
[2021-10-07] MEDS: FUROSEMIDE 40 MG TAB PO SCH ×2 (08:45→17:17)
[2021-10-07] MEDS: APIXABAN 5 MG TAB PO SCH ×2 (08:45→22:10)
[2021-10-07] MEDS: PANTOPRAZOLE 40 MG/10 ML VIAL IVP SCH (08:45)
[2021-10-07] MEDS: ESCITALOPRAM 10 MG TAB PO SCH (08:45)
[2021-10-07] MEDS: busPIRone HCl 5 MG TAB PO SCH ×2 (08:45→22:11)
[2021-10-07 08:57] LABS: African American GFR (CKD) 32.9 (60.0-200.0); Anion Gap 12.6 mmol/L (10.00-18.00); BUN/Creat Ratio 6.16 Ratio (12.00-20.00); Blood Urea Nitrogen 10.6 mg/dL (9.0-27.0); Calcium 7.4 mg/dL (8.7-10.3); Carbon Dioxide 23.2 mmol/L (20.0-27.5); Non-African American GFR(CKD) 28.4 (60.0-200.0); Potassium 3.3 mmol/L (3.5-5.5)
[2021-10-07] MEDS ORDERED: POTASSIUM CHLORIDE ER 20 MEQ TAB.ER PO STA (11:18)
[2021-10-07] MEDS ORDERED: POTASSIUM CHLORIDE 20 MEQ in WATER FOR INJECTION 1 100ML.BAG IVPB STA (11:18)
--- NOTE | 2021-10-07 11:31 | P.PN ---
Subjective Progress Note Date: 10/07/21 Subjective: Patient seen and examined. States she had episode of emesis earlier today. This morning for breakfast she was able to drink liquids and so far hasn't been able to keep it down. Denies any chest pain, shortness of breath, abdominal pain. Her last bowel movement was yesterday morning. She has been passing gas. Physical Exam: General: [nontoxic], [no distress], [appears at stated age] Derm: [warm], [dry] Head: [atraumatic], [normocephalic], [symmetric] Eyes: [EOMI], [no lid lag], [anicteric sclera] Mouth: [no lip lesion], [mucus membranes moist] Cardiovascular: Normal rate. Irregularly irregular rhythm [S1S2 reg], [no murmur], [positive posterior tibial pulse bilateral], Lungs: [CTA bilateral], [no rhonchi, no rales] , [no accessory muscle use] Abdominal: [soft], [ nontender to palpation], [no guarding], [no appreciable organomegaly] positive bowel sounds in all 4 quadrants. Ext: [no gross muscle atrophy], [no edema], [no contractures] Assessment: #Intractable nausea and vomiting likely related to gastritis #Normocytic anemia #Hypokalemia #Acute kidney injury #History of C. diff #Atrial fibrillation, #hypertension, #gout, #depression Plan: Patient presents with intractable nausea and vomiting likely related to gastritis as seen on EGD done on 09/20/2021. Her abdominal exam is benign. She'll be started on Protonix 40 mg IV daily. Zofran and Reglan as needed for nausea and vomiting. Gastric emptying study will be ordered. Her hemoglobin is stable and will be monitored for now. Transfuse if hemoglobin less than 7. Will replace Kcl 40 meq IV Check Mag and we'll check potassium level in the afternoon Cont LR 75 mL per hour. Avoid nephrotoxins. Repeat BMP tomorrow morning. Check abdominal x-ray. Completed treatment for c.diff. Restart Coreg for history of hypertension. Eliquis for anticoagulation. Lexapro for depression. Objective - Vital Signs Vital signs: Vital Signs Temp 98.0 F 10/07/21 07:00 Pulse 86 10/07/21 07:00 Resp 18 10/07/21 07:00 BP 122/63 10/07/21 07:00 Pulse Ox 98 10/07/21 07:00 FiO2 Intake & Output 10/06/21 10/07/21 10/07/21 18:59 06:59 18:59 Weight 97.522 kg Other: # Voids 2 - Labs CBC & Chem 7: 10/06/21 11:54 10/07/21 06:23 Labs: Abnormal Lab Results - Last 24 Hours (Table) 10/06/21 10/06/21 10/07/21 Range/Units 11:54 11:54 06:23 RBC 3.59 L (3.80-5.40) m/uL Hgb 10.6 L (11.4-16.0) gm/dL Hct 33.4 L (34.0-46.0) % RDW 17.7 H (11.5-15.5) % Potassium 3.3 L 3.3 L (3.5-5.1) mmol/L Creatinine 1.84 H 1.7 H (0.52-1.04) mg/dL Est GFR (CKD-EPI)AfAm 32.9 L (60.0-200.0) Est GFR (CKD-EPI)NonAf 28.4 L (60.0-200.0) BUN/Creatinine Ratio 6.16 L (12.00-20.00) Ratio Calcium 7.5 L 7.4 L (8.4-10.2) mg/dL Total Protein 4.8 L (6.3-8.2) g/dL Albumin 2.3 L (3.5-5.0) g/dL Amylase <30 L (30-110) U/L
[2021-10-07] MEDS: LACTATED RINGERS 1,000 ML IV SCH (12:24)
[2021-10-07] MEDS: POTASSIUM CHLORIDE 20 MEQ in WATER FOR INJECTION 1 100ML.BAG IVPB SCH ×2 (12:24→15:48)
--- NOTE | 2021-10-07 13:46 | XR ---
EXAMINATION TYPE: XR KUB DATE OF EXAM: 10/07/2021 12:51 PM INDICATION: Patient age:Female; 76 years old; Reason for study: Nausea and vomiting. concerned for SBO; . COMPARISON: CT abdomen pelvis 09/17/2021. He lacks TECHNIQUE: One radiographic view of the abdomen was obtained. FINDINGS: The bowel gas pattern is nonspecific without dilated loops of small or large bowel. There i s no evidence for organomegaly or pneumoperitoneum. The osseous structures are intact. No abnormal calcifications are present. Fecal material and gas are demonstrated throughout the colon and rectum. IMPRESSION: No definite evidence for small bowel obstruction, Nonspecific bowel gas pattern.
[2021-10-07 15:07] VITALS: BMI 39.3
[2021-10-08] MEDS: LACTATED RINGERS 1,000 ML IV SCH ×2 (00:55→15:30)
[2021-10-08] MEDS: PANTOPRAZOLE 40 MG/10 ML VIAL IVP SCH (08:16)
[2021-10-08] MEDS: FUROSEMIDE 40 MG TAB PO SCH (08:16)
[2021-10-08] MEDS: busPIRone HCl 5 MG TAB PO SCH ×2 (08:16→20:37)
[2021-10-08] MEDS: carvediloL 6.25 MG TAB PO SCH ×2 (08:16→17:14)
[2021-10-08] MEDS: APIXABAN 5 MG TAB PO SCH ×2 (08:16→20:36)
[2021-10-08] MEDS: ESCITALOPRAM 10 MG TAB PO SCH (08:17)
--- NOTE | 2021-10-08 10:49 | P.PN ---
Subjective Progress Note Date: 10/08/21 Subjective: Patient seen and examined. States she had episode of emesis yesterday and today. Per nursing she hasn't been able to eat much secondary to her dry heaving. Patient denies any fevers, chills, lightheadedness or dizziness. Physical Exam: General: [nontoxic], [no distress], [appears at stated age] Derm: [warm], [dry] Head: [atraumatic], [normocephalic], [symmetric] Eyes: [EOMI], [no lid lag], [anicteric sclera] Mouth: [no lip lesion], [mucus membranes moist] Cardiovascular: Normal rate. Irregularly irregular rhythm [S1S2 reg], [no murmur], [positive posterior tibial pulse bilateral], Lungs: [CTA bilateral], [no rhonchi, no rales] , [no accessory muscle use] Abdominal: [soft], [ nontender to palpation], [no guarding], [no appreciable organomegaly] positive bowel sounds in all 4 quadrants. Ext: [no gross muscle atrophy], [no edema], [no contractures] Assessment: #Intractable nausea and vomiting likely related to gastritis #Normocytic anemia #Hypokalemia #Acute kidney injury #History of C. diff #Atrial fibrillation, #hypertension, #gout, #depression Plan: Patient presents with intractable nausea and vomiting likely related to gastrit is as seen on EGD done on 09/20/2021. Cont protonix 40 mg qd Zofran as needed for nausea and vomiting, however per nuclear medicine policy patient cannot be on Zofran prior to study. DC Reglan and opioids as patient to get Gastric emptying study tomorrow. Her hemoglobin is stable and will be monitored for now. Transfuse if hemoglobin less than 7. Will replace magnesium 2 g 1 Await morning labs Cont LR 75 mL per hour. Avoid nephrotoxins. Repeat BMP tomorrow morning. Completed treatment for c.diff. Restart Coreg for history of hypertension. Eliquis for anticoagulation. Lexapro for depression. Objective - Vital Signs Vital signs: Vital Signs Temp 98.3 F 10/08/21 07:00 Pulse 99 10/08/21 07:00 Resp 18 10/08/21 07:00 BP 164/78 10/08/21 07:00 Pulse Ox 97 10/08/21 07:00 FiO2 Intake & Output 10/07/21 10/08/21 10/08/21 18:59 06:59 18:59 Intake Total 90 Balance 90 Weight 97.522 kg Intake: Oral 90 Other: # Voids 2 1 - Labs CBC & Chem 7: 10/06/21 11:54 10/07/21 17:45
[2021-10-08] MEDS: MAGNESIUM SULFATE-D5W PMX 1 GM in DEXTROSE/WATER 1 100ML.BAG IVPB SCH ×2 (11:16→13:02)
[2021-10-08 13:04] LABS: Anisocytosis Slight; Basophils % (A) 1 %; Eosinophils # (A) 0.1 k/uL (0-0.7); Eosinophils % (A) 2 %; HCT 34.2 % (34.0-46.0); HGB 10.5 gm/dL (11.4-16.0); Hypochromasia Moderate; Lymphocytes # (A) 1.6 k/uL (1.0-4.8); Lymphocytes % (A) 23 %; MCH 28.8 pg (25.0-35.0); MCHC 30.7 g/dL (31.0-37.0); MCV 93.8 fL (80.0-100.0); Mean Platelet Volume 8.5; Monocytes # (A) 0.3 k/uL (0-1.0); Monocytes % (A) 5 %; Neutrophils # (A) 4.6 k/uL (1.3-7.7); Neutrophils % (A) 68 %; Platelet Count 269 k/uL (150-450); RBC 3.64 m/uL (3.80-5.40); RDW 17.2 % (11.5-15.5); WBC 6.7 k/uL (3.8-10.6)
[2021-10-08 13:33] LABS: African American GFR (CKD) 34 (>60 ml/min/1.73 sqM); Anion Gap 4 mmol/L; Blood Urea Nitrogen 12 mg/dL (7-17); Calcium 7.3 mg/dL (8.4-10.2); Carbon Dioxide 30 mmol/L (22-30); Chloride 104 mmol/L (98-107); Glucose 96 mg/dL (74-99); Non-African American GFR(CKD) 29 (>60 ml/min/1.73 sqM); Potassium 3.5 mmol/L (3.5-5.1); Sodium 138 mmol/L (137-145)
[2021-10-09] MEDS: LACTATED RINGERS 1,000 ML IV SCH ×2 (05:42→16:40)
[2021-10-09 08:47] LABS: Basophils # (A) 0.06 X 10*3/uL (0.00-0.10); Basophils % (A) 0.7 %; Eosinophils # (A) 0.12 X 10*3/uL (0.04-0.35); Eosinophils % (A) 1.5 %; HCT 30.5 % (37.2-46.3); Immature Grans, Automated 0.2 %; Lymphocytes # (A) 1.66 X 10*3/uL (0.90-5.00); Lymphocytes % (A) 20.2 %; MCH 27.8 pg (27.0-32.0); MCHC 32.8 g/dL (32.0-37.0); MCV 84.7 fL (80.0-97.0); Mean Platelet Volume 11.4 fL (9.5-12.2); Monocytes # (A) 0.69 X 10*3/uL (0.20-1.00); Monocytes % (A) 8.4 %; NRBC Per 100 WBC 0 /100 WBCS (0.0-0.0); Neutrophils # (A) 5.67 X 10*3/uL (1.80-7.70); Platelet Count 263 X 10*3/uL (140-440); RDW 17.8 % (11.5-14.5); WBC 8.22 X 10*3/uL (4.50-10.00)
[2021-10-09 09:05] LABS: African American GFR (CKD) 35.9 (60.0-200.0); Anion Gap 12.1 mmol/L (10.00-18.00); BUN/Creat Ratio 6.69 Ratio (12.00-20.00); Blood Urea Nitrogen 10.7 mg/dL (9.0-27.0); Calcium 7.7 mg/dL (8.7-10.3); Carbon Dioxide 25.9 mmol/L (20.0-27.5); Potassium 3.3 mmol/L (3.5-5.5)
[2021-10-09] MEDS ORDERED: POTASSIUM CHLORIDE ER 20 MEQ TAB.ER PO STA (09:21)
--- NOTE | 2021-10-09 09:37 | P.PN ---
Subjective Progress Note Date: 10/09/21 Hospital course: Patient is a very pleasant 76-year-old female with a past medical history of paroxysmal atrial fibrillation, hypertension, gout, depression, GERD, chronic kidney disease stage III. and previously diagnosed C. diff status post treatment 3 months ago. She presented to the emergency department for a chief complaint of intractable nausea and vomiting. Patient was admitted to observation and placed on IV fluid hydration, bowel rest, and IV antiemetics. Patient continues to have persistent intractable nausea and vomiting. Changes made to antiemetic regimen, CT abdomen and pelvis to be completed and patient transferred to inpatient secondary to persistent intractable nausea and vomiting. Physical exam: Patient seen and fully evaluated at bedside this morning. Patient continues to have dry heaves and vomiting of green bilious. Changes made to antiemetic re gimen, CT abdomen and pelvis to be completed and patient transferred to inpatient secondary to persistent intractable nausea and vomiting. Dr. Eric notified and will be resuming care and following up on further testing. Patient denies having any headache, lightheadedness, dizziness, chest pain, palpitations, or shortness of breath. She also denies having any numbness/tingling/weakness in her extremities. Morning labs reviewed. Normocytic normochromic anemia stable with hemoglobin of 10.0 and potassium of 3.3. Orders placed for K-laurie 40 mEq 1 dose. Vital signs reviewed and stable. General: Nontoxic, no distress and appears stated age. Derm: Skin warm and dry, normal coloration for ethnicity. Head: Atraumatic, normocephalic and symmetric. Eyes: EOMs intact, no lid lag, and anicteric sclera Mouth: no lip lesions, mucus membranes moist Cardiovascular: regular rate and rhythm with normal S1S2, no murmur, positive posterior tibial pulses bilaterally, and cap refill < 2 seconds. Lungs: Respirations even, regular, and unlabored on room air. Lungs CTA bilaterally, no rhonchi, no rales, no wheezing, and no accessory muscle usage. Abdominal: Obese abdomen soft, slight tenderness to epigastric region, no guarding, no appreciable organomegaly Ext: ROM intact. No gross muscle atrophy, no edema, no contractures Neuro: Speech clear, face symmetrical and CN II-XII grossly intact with no noted focal neuro deficits Psych: Alert and oriented to person, place, time, and situation. Appropriate and pleasant affect. Assessment and Plan of Care: Intractable nausea and vomiting Epigastric pain -Continue bowel rest with clear liquid diet -Gentle IV fluid hydration with D5.45% normal saline. -CT abdomen and pelvis with oral and IV contrast. -Symptomatic care and pain management -Scheduled Compazine 10 mg IVP every 6 hours and as needed Reglan for intractable nausea and vomiting. Hypokalemia -Replaced, continue to monitor with repeat a.m. labs. Chronic kidney disease disease stage III -Renal function stable at this time with creatinine of 1.6 at baseline. Paroxysmal atrial fibrillation -Continue anticoagulation with Eliquis Hypertension -Monitor vital signs and continue daily medication regimen with carvedilol GERD -PPI with Protonix 40 mg IVP daily. CODE STATUS: Full code DVT prophylaxis: Eliquis Discussed with: Patient, patient's , and RN Anticipated discharge date: Clinical course to determine Anticipated discharge place: Home A total of 38 minutes was spent on the care of this complex patient more than 50% of the time was spent in counseling and care coordination. Objective - Vital Signs Vital signs: Vital Signs Temp 98.3 F 10/09/21 07:00 Pulse 61 10/09/21 07:00 Resp 18 10/09/21 07:00 BP 164/75 10/09/21 07:00 Pulse Ox 97 10/09/21 07:00 FiO2 Intake & Output 10/08/21 10/09/21 10/09/21 18:59 06:59 18:59 Intake Total 90 Output Total 700 800 Balance -610 -800 Intake: Oral 90 Output: Urine 700 800 Other: # Voids 1 - Labs CBC & Chem 7: 10/09/21 03:42 10/09/21 03:42 Labs: Abnormal Lab Results - Last 24 Hours (Table) 10/08/21 10/08/21 10/09/21 Range/Units 12:43 12:43 03:42 RBC 3.64 L 3.60 L (3.80-5.40) m/uL Hgb 10.5 L 10.0 L (11.4-16.0) gm/dL Hct 30.5 L (37.2-46.3) % MCHC 30.7 L (31.0-37.0) g/dL RDW 17.2 H 17.8 H (11.5-15.5) % Potassium (3.5-5.5) mmol/L Creatinine 1.68 H (0.52-1.04) mg/dL Est GFR (CKD-EPI)AfAm (60.0-200.0) Est GFR (CKD-EPI)NonAf (60.0-200.0) BUN/Creatinine Ratio (12.00-20.00) Ratio Calcium 7.3 L (8.4-10.2) mg/dL 10/09/21 Range/Units 03:42 RBC (3.80-5.40) m/uL Hgb (11.4-16.0) gm/dL Hct (37.2-46.3) % MCHC (31.0-37.0) g/dL RDW (11.5-15.5) % Potassium 3.3 L (3.5-5.5) mmol/L Creatinine 1.6 H (0.52-1.04) mg/dL Est GFR (CKD-EPI)AfAm 35.9 L (60.0-200.0) Est GFR (CKD-EPI)NonAf 31.0 L (60.0-200.0) BUN/Creatinine Ratio 6.69 L (12.00-20.00) Ratio Calcium 7.7 L (8.4-10.2) mg/dL
[2021-10-09] MEDS: PROCHLORPERAZINE INJ 10 MG/2 ML VIAL IVP SCH ×2 (10:27→18:15)
[2021-10-09] MEDS: PANTOPRAZOLE 40 MG/10 ML VIAL IVP SCH (10:27)
[2021-10-09] MEDS: ESCITALOPRAM 10 MG TAB PO SCH (14:24)
[2021-10-09] MEDS: carvediloL 6.25 MG TAB PO SCH ×2 (14:24→18:15)
[2021-10-09] MEDS: busPIRone HCl 5 MG TAB PO SCH ×2 (14:24→21:25)
[2021-10-09] MEDS: APIXABAN 5 MG TAB PO SCH ×2 (14:24→21:25)
[2021-10-09] MEDS: METOCLOPRAMIDE 5 MG/ML 2 ML VIAL IVP PRN (16:42)
[2021-10-09] MEDS ORDERED: IOPAMIDOL CONTRAST (ORAL USE) VIAL PO PRN (16:51)
[2021-10-09] MEDS ORDERED: DEXTROSE 5%-0.45% NACL 1,000 ML IV SCH (17:00)
--- NOTE | 2021-10-09 21:56 | CT ---
EXAMINATION TYPE: CT abdomen pelvis wo/w con CT DLP: 4638.2 mGycm, Automated exposure control for dose reduction was used. DATE OF EXAM: 10/09/2021 9:21 PM COMPARISON: CT abdomen pelvis 09/07/2021 CLINICAL INDICATION:Female, 76 years old with history of Intractable nausea and vomiting, epigastric pain; Intractable nausea and vomiting TECHNIQUE: Axial CT of the abdomen and pelvis. Sagittal and coronal reformats were created on a [employer] workstation. Contrast used:80ml mL of Isovue 300 with IV Contrast, Oral contrast used: with Oral Contrast FINDINGS: LOWER CHEST: There is bilateral pleural effusions. There is moderate coronary artery atherosclerosis. There is aortic valve leaflet calcifications. Heart is mildly enlarged for size. ABDOMEN LIVER: Diffusely hypoattenuating parenchyma. GALLBLADDER AND BILE DUCTS: The gallbladder is surgically absent or decompressed. PANCREAS: Unremarkable. SPLEEN: Small splenule is present. ADRENAL GLANDS: Unremarkable. KIDNEYS AND URETERS: No evidence of hydronephrosis or renal calculus. The ureters are unremarkable. PELVIS BLADDER: Unremarkable REPRODUCTIVE: The uterus is surgically absent. ABDOMEN & PELVIS STOMACH AND BOWEL: No evidence of bowel obstruction. PERITONEUM: No evidence of pneumoperitoneum or free fluid. VASCULATURE: Moderate atherosclerotic calcifications are present throughout the abdominal aorta and i ts branches. No evidence of aortic aneurysm. MUSCULOSKELETAL: No acute osseous abnormalities. Mild disc degeneration changes are present throughou t the thoracolumbar spine. Fatty atrophy changes of the rectus abdominis on the right. LYMPH NODES: No gross evidence for lymphadenopathy. SOFT TISSUE/ABDOMINAL WALL: Fat stranding changes are seen within the subcutaneous tissues left great er than right. IMPRESSION: 1. No evidence for acute intra-abdominal process. 2. Hepatic steatosis. 3. Postsurgical changes to the rectum. 4. Trace bilateral pleural effusions. 5. Mild cardiomegaly with moderate to coronary artery atherosclerosis.
[2021-10-09] MEDS ORDERED: ACETAMINOPHEN TAB 325 MG TAB PO PRN (22:30)
[2021-10-10] MEDS: PROCHLORPERAZINE INJ 10 MG/2 ML VIAL IVP SCH ×4 (00:37→17:33)
[2021-10-10] MEDS: LACTATED RINGERS 1,000 ML IV SCH ×2 (03:55→17:37)
[2021-10-10] MEDS: METOCLOPRAMIDE 5 MG/ML 2 ML VIAL IVP PRN (03:55)
[2021-10-10 09:12] LABS: HCT 29.2 % (37.2-46.3); HGB 9.6 g/dL (12.0-15.0); MCH 27.7 pg (27.0-32.0); MCHC 32.9 g/dL (32.0-37.0); MCV 84.4 fL (80.0-97.0); Mean Platelet Volume 11.8 fL (9.5-12.2); NRBC Per 100 WBC 0 /100 WBCS (0.0-0.0); Platelet Count 247 X 10*3/uL (140-440); RBC 3.46 X 10*6/uL (4.10-5.20); RDW 17.9 % (11.5-14.5); WBC 8.95 X 10*3/uL (4.50-10.00)
[2021-10-10 10:02] LABS: African American GFR (CKD) 38.8 (60.0-200.0); Albumin 2.2 g/dL (3.8-4.9); Anion Gap 13.2 mmol/L (10.00-18.00); BUN/Creat Ratio 7.53 Ratio (12.00-20.00); Blood Urea Nitrogen 11.3 mg/dL (9.0-27.0); Calcium 7.7 mg/dL (8.7-10.3); Carbon Dioxide 23.8 mmol/L (20.0-27.5); Globulin 2.2 g/dL (1.6-3.3); Magnesium 1.7 mg/dL (1.5-2.4); Non-African American GFR(CKD) 33.5 (60.0-200.0); Potassium 3.6 mmol/L (3.5-5.5); Total Bilirubin 0.5 mg/dL (0.30-1.20); Total Protein 4.4 g/dL (6.2-8.2)
[2021-10-10] MEDS: carvediloL 6.25 MG TAB PO SCH ×2 (10:34→18:17)
[2021-10-10] MEDS: busPIRone HCl 5 MG TAB PO SCH ×2 (10:34→20:45)
[2021-10-10] MEDS: APIXABAN 5 MG TAB PO SCH ×2 (10:34→20:45)
[2021-10-10] MEDS: PANTOPRAZOLE 40 MG/10 ML VIAL IVP SCH (10:35)
[2021-10-10] MEDS: ESCITALOPRAM 10 MG TAB PO SCH (10:35)
[2021-10-10] MEDS ORDERED: HYDROcodone/APAP 10-325MG 1 EACH TAB PO PRN (15:49)
[2021-10-10] MEDS ORDERED: HYDROcodone/APAP 5-325MG 1 EACH TAB PO PRN (19:02)
--- NOTE | 2021-10-10 19:04 | P.PN ---
Progress Note - Text Progress Note Date: 10/10/21 This is a pleasant 76-year-old patient, follows with Dr. Brock chandra. Chronic stable medical conditions include atrial fibrillation, hypertension, osteoarthritis, baseline uses a walker. Recurrent C. diff colitis. September 20 EGD showed diffuse gastritis. Patient admitted with intractable nausea vomiting. Given antiemetics. Not much help. October 10: Patient was made inpatient yesterday and was transferred to my care from [facility]. Patient with having a walker. Having multiple vomiting. Has been laying in bed. Told the patient to have thick fluids. Avoid acidic fluids. Set up in a chair. Spoke to the nurse. Active Medications Acetaminophen (Acetaminophen Tab 325 Mg Tab) 650 mg PO Q6HR PRN PRN Reason: Fever and/ or Pain Hydrocodone Bitart/Acetaminophen (Hydrocodone/Apap 10-325mg 1 Each Tab) 1 each PO Q8HR PRN PRN Reason: Pain Last Admin: 10/10/21 15:57 Dose: 1 each Apixaban (Apixaban 5 Mg Tab) 5 mg PO BID [facility]; Protocol Last Admin: 10/10/21 10:34 Dose: 5 mg Buspirone HCl (Buspirone Hcl 5 Mg Tab) 5 mg PO BID [facility] Last Admin: 10/10/21 10:34 Dose: 5 mg Carvedilol (Carvedilol 6.25 Mg Tab) 6.25 mg PO BID-W/MEALS [facility] Last Admin: 10/10/21 18:17 Dose: 6.25 mg Escitalopram Oxalate (Escitalopram 10 Mg Tab) 10 mg PO DAILY [facility] Last Admin: 10/10/21 10:35 Dose: 10 mg Lactated Ringer's (Lactated Ringers) 1,000 mls @ 75 mls/hr IV .[id number] [facility] Last Admin: 10/10/21 17:37 Dose: 75 mls/hr Metoclopramide HCl (Metoclopramide 5 Mg/Ml 2 Ml Vial) 10 mg IVP Q6HR PRN PRN Reason: Nausea And Vomiting Last Admin: 10/10/21 03:55 Dose: 10 mg Pantoprazole Sodium (Pantoprazole 40 Mg Tablet) 40 mg PO AC-BID [facility] Prochlorperazine Edisylate (Prochlorperazine Inj 10 Mg/2 Ml Vial) 10 mg IVP Q6HR [facility] Last Admin: 10/10/21 17:33 Dose: 10 mg Past medical history to include: Atrial fibrillation, hypertension, leaking valves, C. diff, gout, osteoarthritis, diffuse gastritis Social history: Lives with . Ex-smoker. No alcohol. Family history: Reviewed, noncontributory to presentation Physical examination: VITAL SIGNS: 98.1, 73, 20, 156/89, 94% room air GENERAL: , laying in bed awake, tired EYES: Pupils equal. Conjunctiva normal. HEENT: External appearance of nose and ears normal, oral cavity grossly normal. NECK: JVD not raised; masses not palpable. HEART: First and second heart sounds are normal; no edema. LUNGS: Respiratory rate normal; clear to auscultation. ABDOMEN: Soft, nontender, liver spleen not palpable, no masses palpable. PSYCH: Alert and oriented x3; mood and affect normal. MUSCULOSKELETAL:No Clubbing/cyanosis;muscles-grossly intact. Evidence of OA INVESTIGATIONS, reviewed in the clinical context: October 10: White count 8.9 hemoglobin 9.6 platelets 247 potassium 3.6 creatinine 1.5 Computed tomography scan abdomen and pelvis: Hepatic steatosis. Previous studies 2-D echocardiogram: EF 55%. Moderate aortic regurgitation. Renal ultrasound: Unremarkable. Renal cyst. Creatinine 1.41 on September 22 Assessment and plan: -Persistent intractable nausea vomiting. Patient now been tolerating water. Changed to full liquid diet. Changed to Reglan scheduled. Have the patient sit up. Protonix twice a day. -Antral gastritis on EGD September 22 Protonix -Persistent atrial fibrillation, rate controlled Coreg 6.25 mg twice a day. Eliquis 5 mg twice a day. -Primary osteoarthritis Tylenol as needed -Chronic gait dysfunction uses a walker at baseline Fall precautions -Chronic kidney disease, suspect nephrosclerosis stage III Follow renal function. Renal ultrasound: Unremarkable -Moderate aortic regurgitation Consult cardiology Full liquid diet. Reglan scheduled. Have the patient sit up in a chair. Discussed with patient.
[2021-10-10] MEDS: PANTOPRAZOLE 40 MG TABLET PO SCH (19:52)
[2021-10-10] MEDS: METOCLOPRAMIDE 10 MG TAB PO SCH (20:45)
[2021-10-10 23:25] VITALS: RESP 18
[2021-10-11] MEDS: LACTATED RINGERS 1,000 ML IV SCH (02:12)
[2021-10-11 06:00] LABS: African American GFR (CKD) 41 (>60 ml/min/1.73 sqM); Anion Gap 7 mmol/L; Blood Urea Nitrogen 14 mg/dL (7-17); Calcium 7.6 mg/dL (8.4-10.2); Carbon Dioxide 28 mmol/L (22-30); Chloride 103 mmol/L (98-107); Glucose 87 mg/dL (74-99); Non-African American GFR(CKD) 36 (>60 ml/min/1.73 sqM); Potassium 3.4 mmol/L (3.5-5.1); Sodium 138 mmol/L (137-145)
[2021-10-11 08:35] VITALS: BP 159/88; PULSE 73; TEMP 97.4
[2021-10-11] MEDS: carvediloL 6.25 MG TAB PO SCH (08:56)
[2021-10-11] MEDS: METOCLOPRAMIDE 10 MG TAB PO SCH (08:56)
[2021-10-11] MEDS: PANTOPRAZOLE 40 MG TABLET PO SCH (08:56)
[2021-10-11] MEDS: busPIRone HCl 5 MG TAB PO SCH (08:56)
[2021-10-11] MEDS: APIXABAN 5 MG TAB PO SCH (08:56)
[2021-10-11] MEDS: ESCITALOPRAM 10 MG TAB PO SCH (08:56)
--- NOTE | 2021-10-11 15:35 | P.DS ---
Providers Date of admission: 10/09/21 09:36 Expected date of discharge: 10/11/21 Attending physician: Paul Eric Consults: 10/06/21 14:17 Consult Physician Urgent Consulting Provider: Naomy Mccallum Consult Reason/Comments: Intractable vomiting Do you want consulting provider notified?: Yes [facility] Course: This is a pleasant 76-year-old patient, follows with Dr. Brock holguin. Chronic stable medical conditions include atrial fibrillation, hypertension, osteoarthritis, baseline uses a walker. Recurrent C. diff colitis. September 20 EGD showed diffuse gastritis. Patient admitted with intractable nausea vomiting. Given antiemetics. Not much help. October 10: Patient was made inpatient yesterday and was transferred to my care from [facility]. Patient with having a walker. Having multiple vomiting. Has been laying in bed. Told the patient to have thick fluids. Avoid acidic fluids. Set up in a chair. Spoke to the nurse. October 11: Patient doing better. Keeping her diet down. Again educated patient about sitting up in a chair. She does not want inpatient rehab. Has home care. Protonix. He'll follow up with GI. Discussed with Lili shoe caser. Lasix discontinued because of decreased oral intake. Ricardo wrap lower extremity. Discussion and discharge planning more than 35 minutes Past medical history to include: Atrial fibrillation, hypertension, leaking valves, C. diff, gout, osteoarthritis, diffuse gastritis Social history: Lives with . Ex-smoker. No alcohol. Family history: Reviewed, noncontributory to presentation Physical examination: VITAL SIGNS: 97.4, 73, 18, 1 59 x 88, 99% room air GENERAL: , laying in bed awake, comfortable EYES: Pupils equal. Conjunctiva normal. HEENT: External appearance of nose and ears normal, oral cavity grossly normal. NECK: JVD not raised; masses not palpable. HEART: First and second heart sounds are normal; no edema. LUNGS: Respiratory rate normal; clear to auscultation. ABDOMEN: Soft, nontender, liver spleen not palpable, no masses palpable. PSYCH: Alert and oriented x3; mood and affect normal. MUSCULOSKELETAL:No Clubbing/cyanosis;muscles-grossly intact. Evidence of OA INVESTIGATIONS, reviewed in the clinical context: October 11: Creatinine 1.43 October 10: White count 8.9 hemoglobin 9.6 platelets 247 potassium 3.6 creatinine 1.5 Computed tomography scan abdomen and pelvis: Hepatic steatosis. Previous studies 2-D echocardiogram: EF 55%. Moderate aortic regurgitation. Renal ultrasound: Unremarkable. Renal cyst. Creatinine 1.41 on September 22 Assessment and plan: -Persistent intractable nausea vomiting.: Better Reglan for a week. Soft diet. -Antral gastritis on EGD September 22 Protonix -Persistent atrial fibrillation, rate controlled Coreg 6.25 mg twice a day. Eliquis 5 mg twice a day. -Primary osteoarthritis Tylenol as needed -Chronic gait dysfunction uses a walker at baseline Fall precautions -Chronic kidney disease, suspect nephrosclerosis stage III Follow renal function. Renal ultrasound: Unremarkable -Moderate aortic regurgitation Consult cardiology -Chronic medical debility. Patient has declined rehab. Has hospital bed, bedside commode. Home care Disposition: Home Plan - Discharge Summary Discharge Rx Participant: No New Discharge Prescriptions: New Metoclopramide [Reglan] 10 mg PO AC-TID #21 tab Continue allopurinoL [Zyloprim] 100 mg PO DAILY Diphenox-Atrop 2.5-0.025 mg [Lomotil] 1 tab PO QID PRN PRN Reason: Diarrhea Acetaminophen Tab [Tylenol] 650 mg PO Q6HR PRN tab PRN Reason: Mild Pain Or Fever > 100.5 Nystatin/Triamcin [Nystatin-Triamcinolone Cream] 1 applic TOPICAL BID HYDROcodone/APAP 10-325MG [[place] 10-325] 1 tab PO Q8H PRN PRN Reason: Pain carvediloL [Coreg] 6.25 mg PO BID Apixaban [Eliquis] 5 mg PO BID busPIRone HCl [Buspar] 5 mg PO BID Escitalopram [Lexapro] 10 mg PO DAILY Changed Pantoprazole Sodium [Protonix] 40 mg PO BID #60 tab Discontinued Furosemide [Lasix] 40 mg PO BID ondansetron HCL [Zofran] 8 mg PO Q8H PRN #30 tab PRN Reason: Nausea Potassium Chloride [K-Tab ER] 20 meq PO DAILY 30 Days #30 tab No Action Prochlorperazine [Compazine] 10 mg PO Q8H PRN PRN Reason: Nausea Discharge Medication List Apixaban [Eliquis] 5 mg PO BID 08/30/21 [History] Diphenox-Atrop 2.5-0.025 mg [Lomotil] 1 tab PO QID PRN 08/30/21 [History] HYDROcodone/APAP 10-325MG [[place] 10-325] 1 tab PO Q8H PRN 08/30/21 [History] allopurinoL [Zyloprim] 100 mg PO DAILY 08/30/21 [History] carvediloL [Coreg] 6.25 mg PO BID 08/30/21 [History] Acetaminophen Tab [Tylenol] 650 mg PO Q6HR PRN tab 09/02/21 [Rx] Prochlorperazine [Compazine] 10 mg PO Q8H PRN 09/17/21 [History] Escitalopram [Lexapro] 10 mg PO DAILY 10/06/21 [History] Nystatin/Triamcin [Nystatin-Triamcinolone Cream] 1 applic TOPICAL BID 10/06/21 [History] busPIRone HCl [Buspar] 5 mg PO BID 10/06/21 [History] Metoclopramide [Reglan] 10 mg PO AC-TID #21 tab 10/11/21 [Rx] Pantoprazole Sodium [Protonix] 40 mg PO BID #60 tab 10/11/21 [Rx] Follow up Appointment(s)/Referral(s): Naomy Mccallum MD [STAFF PHYSICIAN] - 1 Week [facility], [NON-STAFF] - 1-2 Days Brock Holguin MD [Primary Care Provider] - 1-2 days Patient Instructions/Handouts: Gastritis (DC) Activity/Diet/Wound Care/Special Instructions: ricardo wrap Discharge Disposition: HOME WITH HOME HEALTH SERVICES
== END 2021-10-11 13:08 | disposition home health service (06) | DRG 392 ==
LOC: EC 11:30 → 6NMEDSUR 14:17 → OBSVTOIN 10-09 09:36
PROVIDERS: ADMIT Hospitalist; ATTEND Hospitalist
DX: K29.70 Gastritis, unspecified, without bleeding (principal); I48.19 Other persistent atrial fibrillation; N17.9 Acute kidney failure, unspecified; I12.9 Hypertensive chronic kidney disease with stage 1 through stage 4 chronic kidney disease, or unspecified chronic kidney disease; N18.30 Chronic kidney disease, stage 3 unspecified; D64.9 Anemia, unspecified; E86.0 Dehydration; E87.6 Hypokalemia; F32.A Depression, unspecified; I35.1 Nonrheumatic aortic (valve) insufficiency; K44.9 Diaphragmatic hernia without obstruction or gangrene; M10.9 Gout, unspecified; M19.91 Primary osteoarthritis, unspecified site; Z79.01 Long term (current) use of anticoagulants; Z79.899 Other long term (current) drug therapy; Z87.891 Personal history of nicotine dependence; Z90.710 Acquired absence of both cervix and uterus; I48.0 Paroxysmal atrial fibrillation; Z91.040 Latex allergy status; Z88.1 Allergy status to other antibiotic agents; Z88.0 Allergy status to penicillin; Z88.2 Allergy status to sulfonamides; Z87.19 Personal history of other diseases of the digestive system
CPT/HCPCS: 36415; 74018; 74178; 80048; 80053; 82150; 83605; 83690; 83735; 84132; 85025; 85027; 96361; 96374; 96375; 99285